=== PATIENT | male | born 1945 | race Caucasian/White ===

== ENCOUNTER 2017-10-15 10:11 | Day surgery (SDC) | payer MEDICARE ==
[2017-10-13 12:26] VITALS: BMI 33.4
[~2017-10-15 10:11] MED LIST: LIDOCAINE 1% 20 ML VIAL (10MG/ML) FOR IV START INTRADERMA PRN
[2017-10-15 10:54] VITALS: TEMP 97.2
[2017-10-15] MEDS: LACTATED RINGERS 1,000 ML IV SCH ×2 (10:55→12:16)
[2017-10-15] MEDS ORDERED: PROPOFOL 10 MG/ML 20 ML VIAL IV ONE (12:17)
--- NOTE | 2017-10-15 12:31 | P.PCN ---
Date of Procedure: 10/15/17 Procedure(s) Performed: BRIEF HISTORY: Patient is a 71-year-old, pleasant, male, scheduled for an upper endoscopy as part of value should of intermittent dysphagia to solids for the last several months duration. Has solid food dysphagia almost on daily basis. Denies any heartburn. He also has long-standing history of GERD and has been on omeprazole 20 mg daily for the last 12 years. He has been maintained on Prilosec 20 mg daily and doing well. In view of the symptoms he scheduled for an upper endoscopy with possible dilation.. PROCEDURE PERFORMED: Esophagogastroduodenoscopy with biopsy. PREOPERATIVE DIAGNOSIS: Progressive dysphagia to solids of 6 months duration. IV sedation per anesthesia. PROCEDURE: After informed consent was obtained, the patient was brought into the endoscopy unit. IV sedation was administered by Anesthesia under continuous monitoring. Initially the Olympus GIF-140 video endoscope was inserted into the mouth. Esophagus intubated without any difficulty. It was gradually advanced into the stomach and duodenum and carefully examined. The bulb and the second part of the duodenum appeared normal. The scope at this time was withdrawn to the stomach, adequately insufflated with air, and upon careful examination, mucosa of the antrum, had scattered erosions and biopsies were done from this area. The body, cardia and the fundus appeared normal. The scope was then withdrawn into the esophagus. Moderate size hiatal hernia noted with the diaphragmatic impression at 45 cm from the incisors. The GE junction was located at 39 cm from the incisors. The entire length of esophagus appeared normal. There were no erosions or ulcerations seen. Biopsies were done from the distal esophagus and the patient tolerated the procedure well. IMPRESSION: 1. Slightly conscious esophagus with no evidence of esophageal stricture. 2. Moderate size hiatal hernia. 3. Antral erosive gastritis RECOMMENDATIONS: The findings of this examination were discussed with the patient as well as his family. He was advised to follow with the biopsy results. He will continue with Prilosec 20 mg twice daily and follow antireflux measures. If he still has persistent dysphagia related to investigate this further with an esophageal manometry to evaluate for esophageal motility disorder..
[2017-10-15 12:41] VITALS: RESP 18
[2017-10-15 12:56] VITALS: BP 123/77; PULSE 77
== END 2017-10-15 13:10 | disposition home or self-care (01) ==
LOC: ORWHC2ENDO 10:11
PROVIDERS: ATTEND Internal Medicine Gastroenterology
DX: K21.0 Gastro-esophageal reflux disease with esophagitis (principal); K29.50 Unspecified chronic gastritis without bleeding; K44.9 Diaphragmatic hernia without obstruction or gangrene; I38 Endocarditis, valve unspecified; E78.5 Hyperlipidemia, unspecified; G47.33 Obstructive sleep apnea (adult) (pediatric); Z99.89 Dependence on other enabling machines and devices; E07.9 Disorder of thyroid, unspecified; L40.9 Psoriasis, unspecified; Z79.1 Long term (current) use of non-steroidal anti-inflammatories (NSAID); Z79.82 Long term (current) use of aspirin; Z79.899 Other long term (current) drug therapy; Z91.018 Allergy to other foods; Z91.011 Allergy to milk products
CPT/HCPCS: 88305; 43239; J2704

== ENCOUNTER 2017-11-16 01:10 | Inpatient (IN) | payer MEDICARE ==
[2017-11-16] MEDS ORDERED: cefTRIAXone IN SWFI 1,000 MG/10 ML SYRINGE IVP STA (01:36)
[2017-11-16] MEDS ORDERED: ACETAMINOPHEN TAB 325 MG TAB PO STA (01:36)
[2017-11-16] MEDS: SODIUM CHLORIDE 0.9% 500 ML IV SCH ×2 (01:52→02:00)
[2017-11-16 01:57] LABS: Basophils # (A) 0.1 k/uL (0-0.2); Basophils % (A) 0 %; Eosinophils # (A) 0.1 k/uL (0-0.7); Eosinophils % (A) 0 %; HCT 42.9 % (39.0-53.0); HGB 14.7 gm/dL (13.0-17.5); Lymphocytes # (A) 1.3 k/uL (1.0-4.8); Lymphocytes % (A) 7 %; MCH 29.8 pg (25.0-35.0); MCHC 34.3 g/dL (31.0-37.0); Mean Platelet Volume 9.9; Monocytes # (A) 0.2 k/uL (0-1.0); Monocytes % (A) 1 %; Neutrophils # (A) 16.9 k/uL (1.3-7.7); Neutrophils % (A) 90 %; Platelet Count 317 k/uL (150-450); RBC 4.93 m/uL (4.30-5.90); RDW 13.6 % (11.5-15.5); WBC 18.7 k/uL (3.8-10.6)
[2017-11-16 02:04] LABS: Albumin 4.5 g/dL (3.5-5.0); Calcium 8.4 mg/dL (8.4-10.2); Total Bilirubin 5.1 mg/dL (0.2-1.3); Total Protein 8.3 g/dL (6.3-8.2)
[2017-11-16 02:35] LABS: Appearance,Urine Clear (Clear); Bilirubin,Urine Negative (Negative); Blood,Urine Trace (Negative); Color,Urine Yellow; Glucose,Urine (UA) Negative (Negative); Hyaline Casts,Urine 29 /lpf (0-2); Ketones,Urine Negative (Negative); Leukocyte Esterase,Urine Negative (Negative); Mucus,Urine Few /hpf; Nitrite,Urine Negative (Negative); PH, Urine 5.5 (5.0-8.0); Protein,Urine 1+ (Negative); RBC,Urine 3 /hpf (0-5); Specific Gravity,Urine 1.011 (1.001-1.035); Squamous Epithelial Cell,Urine 1 /hpf (0-4); WBC,Urine 4 /hpf (0-5)
--- NOTE | 2017-11-16 02:36 | XR ---
EXAMINATION TYPE: XR chest 2V DATE OF EXAM: 11/16/2017 COMPARISON: 01/28/1715 HISTORY: Fever short of breath TECHNIQUE: Frontal and lateral views of the chest are obtained. FINDINGS: There is some blunting of the costophrenic angles. Heart and mediastinum are normal. There is small linear density at the left lung base. There are chest leads. There is no heart failure. IMPRESSION: There are new small bilateral pleural effusions and subsegmental atelectasis at the left lung base compared to old exam. No heart failure.
[2017-11-16 03:25] LABS: INR 1.2 (<1.2); Prothrombin Time 11.4 sec (9.0-12.0)
[2017-11-16 03:35] LABS: Partial Thromboplastin Time 21.6 sec (22.0-30.0)
[2017-11-16] MEDS ORDERED: SODIUM CHLORIDE 0.9% 2,000 ML IV ONE (03:35)
[2017-11-16] MEDS ORDERED: PIPERACILLIN-TAZOBACTAM 3.375 GM in DEXTROSE/WATER 1 50ML.BAG IVPB STA (04:36)
--- NOTE | 2017-11-16 05:22 | CT ---
EXAM: CT Abdomen and Pelvis Without Intravenous Contrast CLINICAL HISTORY: Pain TECHNIQUE: Axial computed tomography images of the abdomen and pelvis without intravenous contrast. CTDI is 16.2 mGy and DLP is 944.9 mGy-cm. This CT exam was performed using one or more of the following dose reduction techniques: automated exposure control, adjustment of the mA and/or kV according to patient size, and/or use of iterative reconstruction technique. COMPARISON: No relevant prior studies available. FINDINGS: Lung bases: There is minimal pleural thickening noted bilaterally. Scarring is noted bilaterally. There is consolidation noted in the right lung base and to lesser extent in the left lung base. Right greater than left pleural effusion is evident ABDOMEN: Liver: Area of abnormal low attenuation posterior sector right lobe the liver measuring 10 cm transverse by 8 cm AP by 8.5 cm craniocaudal small approximately 2 cm noted in the inferior margin of the right lobe the liver.. The findings are suspicious for neoplasm. More complete evaluation including contrast utilization is recommended Gallbladder and bile ducts: Multiple gallstones noted in the neck of the gallbladder these appear to measure around 6-7 mm in size. No evidence for intrahepatic or extrahepatic ductal dilatation. No ductal dilation. Pancreas: Unremarkable. No ductal dilation. Spleen: Unremarkable. No splenomegaly. Adrenals: Unremarkable. No mass. Kidneys and ureters: Perinephric stranding. No evidence for hydronephrosis. Nonobstructing renal calculi measuring 2.2 mm midpole right kidney. Stomach and bowel: Large hiatal hernia. PELVIS: Appendix: The appendix is normal. Bladder: Unremarkable. No stones. Reproductive: Unremarkable as visualized. Prominence of the prostate gland. ABDOMEN and PELVIS: Intraperitoneal space: Unremarkable. No free air. No significant fluid collection. Bones/joints: No acute fracture. No dislocation. Soft tissues: Unremarkable. Vasculature: Unremarkable. No abdominal aortic aneurysm. Lymph nodes: 1.2 cm density in the right inguinal canal which could represent small lymph node. No significant pericaval or periaortic adenopathy. No significant mesenteric adenopathy is identified. IMPRESSION: Abnormal appearance the liver on this noncontrast study. At least 2 mass lesions in the right lobe the liver. Further evaluation of those hepatic lesions is recommended. Cholelithiasis without evidence of intrahepatic or intrahepatic ductal dilatation. No pericholecystic fluid. Consolidation and scarring lung bases with right greater than left pleural effusion, right greater than left consolidation.
[2017-11-16] MEDS ORDERED: SODIUM CHLORIDE 0.9% 1,000 ML IV ONE (05:28)
--- NOTE | 2017-11-16 06:51 | ED ---
SOB HPI - General Chief Complaint: Shortness of Breath Stated Complaint: diff breathing Time Seen by Provider: 11/16/17 01:13 Source: EMS Mode of arrival: EMS Limitations: no limitations - History of Present Illness Initial Comments: This patient is a 71-year-old man presenting with complaint of shaking chills, shortness of breath, and little bit of cough. Patient states that he had been having just a trace of a cough for nearly one day. Tonight's probably about 2 hours ago, he developed shaking chills and was not able to get warm even while wearing a fleece and using a blanket. He also started feeling short of breath, and they called EMS. MD Complaint: shortness of breath, cough Onset/Timin -: hour(s) Consistency: constant Improves With: nothing Worsens With: nothing Associated Symptoms: cough Treatments Prior to Arrival: none - Related Data Home Medications Medication Instructions Recorded Confirmed Aspirin 81 mg PO HS 04/03/14 11/16/17 Doxazosin [Cardura] 4 mg PO HS 04/03/14 11/16/17 Finasteride [Proscar] 5 mg PO QAM 04/03/14 11/16/17 Naproxen Sodium 550 mg PO Q12HR PRN 04/03/14 11/16/17 Simvastatin [Zocor] 40 mg PO HS 04/03/14 11/16/17 Levothyroxine Sodium [Synthroid] 25 mcg PO QAM 01/21/15 11/16/17 Calcium Carbonate/Vitamin D3 1 each PO DAILY 01/25/15 11/16/17 [Calcium 600 + Vit D Tablet] Multivitamin [Men's Multi-Vitamin] 1 tab PO DAILY 01/25/15 11/16/17 Krill Oil 1,000 mg PO DAILY 03/11/15 11/16/17 Potassium Gluconate 595 mg PO DAILY 02/20/16 11/16/17 Cholecalciferol [Vitamin D3] 5,000 unit PO DAILY 11/16/17 11/16/17 Oxybutynin Chloride [Ditropan XL] 10 mg PO DAILY 11/16/17 11/16/17 traMADol HCL [Ultram] 100 mg PO Q6HR PRN 11/16/17 11/16/17 Allergies Allergy/AdvReac Type Severity Reaction Status Date / Time lentils Allergy HEADACHE Verified 11/16/17 07:43 Milk Containing Products Allergy HEADACHE Verified 11/16/17 07:43 [Dairy] soy Allergy HEADACHES Verified 11/16/17 07:43 tree nut [Nut] Allergy HEADACHES Verified 11/16/17 07:43 P[place]REE Allergy SHORTNESS Uncoded 10/15/17 10:49 OF BREATH Review of Systems ROS Statement: Those systems with pertinent positive or pertinent negative responses have been documented in the HPI. ROS Other: All systems not noted in ROS Statement are negative. Constitutional: Reports: chills, weakness (Generalized weakness and fatigue) Respiratory: Reports: cough, dyspnea. Denies: wheezes, hemoptysis Cardiovascular: Reports: palpitations. Denies: chest pain, orthopnea, edema, syncope Gastrointestinal: Denies: abdominal pain, vomiting, diarrhea Genitourinary: Denies: dysuria, frequency, hematuria Musculoskeletal: Reports: myalgia. Denies: back pain Skin: Denies: rash Neurological: Denies: headache, weakness, numbness Past Medical History Past Medical History: GERD/Reflux, Hyperlipidemia, Osteoarthritis (OA), Prostate Disorder, Respiratory Disorder, Skin Disorder, Sleep Apnea/CPAP/BIPAP, Thyroid Disorder Additional Past Medical History / Comment(s): SAW DR. PETERSON 04/16/15-HAS LEAKY VALVE- USES C-PAP SET @ 12 & 5, PSORIASIS LOWER LEGS & UPPER ARMS, NECK AND BACK - USES AMONIUM LACTATE CREAM 12 % PRN, OA KNEES & HIPS History of Any Multi-Drug Resistant Organisms: None Reported Past Surgical History: Hernia Repair Additional Past Surgical History / Comment(s): HERNIA X 3 ( ONE UMBILICAL, ONE LT INGUINAL & ONE HIATAL HERNIA REPAIR), PAIN CLINIC- LAST TIME 04/08/15, COLONSCOPY, EGD, Past Anesthesia/Blood Transfusion Reactions: Motion Sickness Past Psychological History: No Psychological Hx Reported Smoking Status: Never smoker Past Alcohol Use History: Occasional Past Drug Use History: None Reported - Past Family History Father Family Medical History: Myocardial Infarction (DE) Additional Family Medical History / Comment(s): collapsed lung when a younger man, 5 pack a day smoker Mother Family Medical History: Cancer Additional Family Medical History / Comment(s): breast cancer, lymph node to brain, Sister(s) Family Medical History: Neurologic Disorder Additional Family Medical History / Comment(s): M.S. General Exam Limitations: no limitations General appearance: alert, in distress Head exam: Present: atraumatic, normocephalic Eye exam: Present: normal appearance. Absent: scleral icterus, conjunctival injection ENT exam: Present: normal oropharynx Neck exam: Present: normal inspection, full ROM. Absent: meningismus Respiratory exam: Present: respiratory distress (Tachypnea), rales (Bilateral bases). Absent: wheezes, rhonchi, stridor, chest wall tenderness, accessory muscle use, decreased breath sounds, prolonged expiratory Cardiovascular Exam: Present: normal rhythm, tachycardia, normal heart sounds. Absent: systolic murmur, diastolic murmur, rubs, gallop GI/Abdominal exam: Present: soft. Absent: distended, tenderness, guarding, rebound, rigid, mass, pulsatile mass, hernia Extremities exam: Present: normal inspection, normal capillary refill. Absent: pedal edema, calf tenderness Back exam: Present: normal inspection. Absent: CVA tenderness (R), CVA tenderness (L) Neurological exam: Present: alert Skin exam: Present: warm, intact, diaphoretic, mottled. Absent: rash, cyanosis , erythema, petechiae, pallor, abrasion Course Vital Signs 11/16/17 11/16/17 11/16/17 01:24 01:26 01:57 Temperature 102.1 F H Pulse Rate 133 H Pulse Rate [ Pulse Oximetery ] Respiratory 35 H 22 Rate Blood Pressure 143/110 Blood Pressure [Right Arm] O2 Sat by Pulse 87 L 91 L Oximetry 11/16/17 11/16/17 11/16/17 02:49 03:58 04:20 Temperature 99.2 F Pulse Rate 107 H 96 89 Pulse Rate [ Pulse Oximetery ] Respiratory 18 Rate Blood Pressure 96/64 88/52 91/54 Blood Pressure [Right Arm] O2 Sat by Pulse 92 L 92 L 92 L Oximetry 11/16/17 11/16/17 11/16/17 05:19 06:04 06:27 Temperature Pulse Rate 86 83 81 Pulse Rate [ Pulse Oximetery ] Respiratory 18 18 18 Rate Blood Pressure 87/59 93/64 92/67 Blood Pressure [Right Arm] O2 Sat by Pulse 94 L 93 L 93 L Oximetry 11/16/17 11/16/17 11/16/17 06:39 07:41 08:38 Temperature 100.3 F H Pulse Rate 72 70 Pulse Rate [ Pulse Oximetery ] Respiratory 20 18 Rate Blood Pressure 97/65 101/65 Blood Pressure [Right Arm] O2 Sat by Pulse 94 L 95 Oximetry 11/16/17 11/16/17 11/16/17 10:11 12:00 13:18 Temperature 97.8 F 97.7 F 97.7 F Pulse Rate 68 74 Pulse Rate [ 77 Pulse Oximetery ] Respiratory 18 18 18 Rate Blood Pressure 98/63 109/64 Blood Pressure 105/68 [Right Arm] O2 Sat by Pulse 96 96 97 Oximetry 11/16/17 16:00 Temperature 98 F Pulse Rate Pulse Rate [ 76 Pulse Oximetery ] Respiratory 16 Rate Blood Pressure Blood Pressure 99/55 [Right Arm] O2 Sat by Pulse 95 Oximetry Medical Decision Making - Medical Decision Making This patient is 71-year-old man presenting with appearance of sepsis, and given the cough dyspnea suspected pneumonia. The patient's initial chest x-ray does look clear, and given the elevated transaminases, CT of the abdomen pelvis is ordered. This does appear to show area of consolidation at the lung base. Also there does appear to be 8 x 10 cm liver mass concerning for possible neoplasm. Case discussed with hospitals group and patient be admitted. Case discussed with Dr. Wise, who is covering for the intensivists, and we discussed patient's condition including brief episode of hypotension, and patient's vascular access. Patient's blood pressure did respond prior to starting pressors. He will be observed here for an hour and if his blood pressure main stable patient go to the [facility] otherwise will start pressors and patient will go to ICU. - Lab Data Result diagrams: 11/22/17 06:04 11/22/17 06:04 Lab Results 11/16/17 11/16/17 11/16/17 Range/Units 01:20 01:20 01:20 WBC 18.7 H (3.8-10.6) k/uL RBC 4.93 (4.30-5.90) m/uL Hgb 14.7 (13.0-17.5) gm/dL Hct 42.9 (39.0-53.0) % MCV 87.0 (80.0-100.0) fL MCH 29.8 (25.0-35.0) pg MCHC 34.3 (31.0-37.0) g/dL RDW 13.6 (11.5-15.5) % Plt Count 317 (150-450) k/uL Neutrophils % 90 % Lymphocytes % 7 % Monocytes % 1 % Eosinophils % 0 % Basophils % 0 % Neutrophils # 16.9 H (1.3-7.7) k/uL Lymphocytes # 1.3 (1.0-4.8) k/uL Monocytes # 0.2 (0-1.0) k/uL Eosinophils # 0.1 (0-0.7) k/uL Basophils # 0.1 (0-0.2) k/uL PT (9.0-12.0) sec INR (<1.2) APTT (22.0-30.0) sec Sodium 134 L (137-145) mmol/L Potassium (3.5-5.1) mmol/L Chloride 101 (98-107) mmol/L Carbon Dioxide 16 L (22-30) mmol/L Anion Gap 17 mmol/L BUN 21 H (9-20) mg/dL Creatinine 1.00 (0.66-1.25) mg/dL Est GFR (CKD-EPI)AfAm 87 (>60 ml/min/1.73 sqM) Est GFR (CKD-EPI)NonAf 75 (>60 ml/min/1.73 sqM) Glucose 136 H (74-99) mg/dL Lactic Ac Sepsis Rflx Plasma Lactic Acid Sung 4.6 H* (0.7-2.0) mmol/L Calcium 8.4 (8.4-10.2) mg/dL Total Bilirubin 5.1 H (0.2-1.3) mg/dL AST 426 H (17-59) U/L ALT 187 H (21-72) U/L Alkaline Phosphatase 328 H (38-126) U/L Troponin I (0.000-0.034) ng/mL Total Protein 8.3 H (6.3-8.2) g/dL Albumin 4.5 (3.5-5.0) g/dL CA 19-9 Antigen (0.0-34.9) U/mL Urine Color Urine Appearance (Clear) Urine pH (5.0-8.0) Ur Specific [place] (1.001-1.035) Urine Protein (Negative) Urine Glucose (UA) (Negative) Urine Ketones (Negative) Urine Blood (Negative) Urine Nitrite (Negative) Urine Bilirubin (Negative) Urine Urobilinogen (<2.0) mg/dL Ur Leukocyte Esterase (Negative) Urine RBC (0-5) /hpf Urine WBC (0-5) /hpf Ur Squamous Epith Cells (0-4) /hpf Hyaline Casts (0-2) /lpf Urine Mucus (None) /hpf Hepatitis A IgM Ab (Non-Reactive) Hep Bs Antigen (Non-Reactive) Hep B Core IgM Ab (Non-Reactive) Hep C IgG Ab (Non-Reactive) Influenza Type A RNA (Not Detectd) Influenza Type B (PCR) (Not Detectd) 11/16/17 11/16/17 11/16/17 Range/Units 01:20 01:20 01:20 WBC (3.8-10.6) k/uL RBC (4.30-5.90) m/uL Hgb (13.0-17.5) gm/dL Hct (39.0-53.0) % MCV (80.0-100.0) fL MCH (25.0-35.0) pg MCHC (31.0-37.0) g/dL RDW (11.5-15.5) % Plt Count (150-450) k/uL Neutrophils % % Lymphocytes % % Monocytes % % Eosinophils % % Basophils % % Neutrophils # (1.3-7.7) k/uL Lymphocytes # (1.0-4.8) k/uL Monocytes # (0-1.0) k/uL Eosinophils # (0-0.7) k/uL Basophils # (0-0.2) k/uL PT (9.0-12.0) sec INR (<1.2) APTT (22.0-30.0) sec Sodium (137-145) mmol/L Potassium (3.5-5.1) mmol/L Chloride (98-107) mmol/L Carbon Dioxide (22-30) mmol/L Anion Gap mmol/L BUN (9-20) mg/dL Creatinine (0.66-1.25) mg/dL Est GFR (CKD-EPI)AfAm (>60 ml/min/1.73 sqM) Est GFR (CKD-EPI)NonAf (>60 ml/min/1.73 sqM) Glucose (74-99) mg/dL Lactic Ac Sepsis Rflx Plasma Lactic Acid Sung (0.7-2.0) mmol/L Calcium (8.4-10.2) mg/dL Total Bilirubin (0.2-1.3) mg/dL AST (17-59) U/L ALT (21-72) U/L Alkaline Phosphatase (38-126) U/L Troponin I 0.031 (0.000-0.034) ng/mL Total Protein (6.3-8.2) g/dL Albumin (3.5-5.0) g/dL CA 19-9 Antigen 10.3 (0.0-34.9) U/mL Urine Color Urine Appearance (Clear) Urine pH (5.0-8.0) Ur Specific [place] (1.001-1.035) Urine Protein (Negative) Urine Glucose (UA) (Negative) Urine Ketones (Negative) Urine Blood (Negative) Urine Nitrite (Negative) Urine Bilirubin (Negative) Urine Urobilinogen (<2.0) mg/dL Ur Leukocyte Esterase (Negative) Urine RBC (0-5) /hpf Urine WBC (0-5) /hpf Ur Squamous Epith Cells (0-4) /hpf Hyaline Casts (0-2) /lpf Urine Mucus (None) /hpf Hepatitis A IgM Ab Non-Reactive (Non-Reactive) Hep Bs Antigen Non-Reactive (Non-Reactive) Hep B Core IgM Ab Non-Reactive (Non-Reactive) Hep C IgG Ab Non-Reactive (Non-Reactive) Influenza Type A RNA (Not Detectd) Influenza Type B (PCR) (Not Detectd) 11/16/17 11/16/17 11/16/17 Range/Units 01:50 02:01 02:14 WBC (3.8-10.6) k/uL RBC (4.30-5.90) m/uL Hgb (13.0-17.5) gm/dL Hct (39.0-53.0) % MCV (80.0-100.0) fL MCH (25.0-35.0) pg MCHC (31.0-37.0) g/dL RDW (11.5-15.5) % Plt Count (150-450) k/uL Neutrophils % % Lymphocytes % % Monocytes % % Eosinophils % % Basophils % % Neutrophils # (1.3-7.7) k/uL Lymphocytes # (1.0-4.8) k/uL Monocytes # (0-1.0) k/uL Eosinophils # (0-0.7) k/uL Basophils # (0-0.2) k/uL PT (9.0-12.0) sec INR (<1.2) APTT (22.0-30.0) sec Sodium (137-145) mmol/L Potassium (3.5-5.1) mmol/L Chloride (98-107) mmol/L Carbon Dioxide (22-30) mmol/L Anion Gap mmol/L BUN (9-20) mg/dL Creatinine (0.66-1.25) mg/dL Est GFR (CKD-EPI)AfAm (>60 ml/min/1.73 sqM) Est GFR (CKD-EPI)NonAf (>60 ml/min/1.73 sqM) Glucose (74-99) mg/dL Lactic Ac Sepsis Rflx Y Plasma Lactic Acid Sung (0.7-2.0) mmol/L Calcium (8.4-10.2) mg/dL Total Bilirubin (0.2-1.3) mg/dL AST (17-59) U/L ALT (21-72) U/L Alkaline Phosphatase (38-126) U/L Troponin I (0.000-0.034) ng/mL Total Protein (6.3-8.2) g/dL Albumin (3.5-5.0) g/dL CA 19-9 Antigen (0.0-34.9) U/mL Urine Color Yellow Urine Appearance Clear (Clear) Urine pH 5.5 (5.0-8.0) Ur Specific [place] 1.011 (1.001-1.035) Urine Protein 1+ H (Negative) Urine Glucose (UA) Negative (Negative) Urine Ketones Negative (Negative) Urine Blood Trace H (Negative) Urine Nitrite Negative (Negative) Urine Bilirubin Negative (Negative) Urine Urobilinogen 3.0 (<2.0) mg/dL Ur Leukocyte Esterase Negative (Negative) Urine RBC 3 (0-5) /hpf Urine WBC 4 (0-5) /hpf Ur Squamous Epith Cells 1 (0-4) /hpf Hyaline Casts 29 H (0-2) /lpf Urine Mucus Few H (None) /hpf Hepatitis A IgM Ab (Non-Reactive) Hep Bs Antigen (Non-Reactive) Hep B Core IgM Ab (Non-Reactive) Hep C IgG Ab (Non-Reactive) Influenza Type A RNA Not Detected (Not Detectd) Influenza Type B (PCR) Not Detected (Not Detectd) 11/16/17 11/16/17 Range/Units 02:53 06:10 WBC (3.8-10.6) k/uL RBC (4.30-5.90) m/uL Hgb (13.0-17.5) gm/dL Hct (39.0-53.0) % MCV (80.0-100.0) fL MCH (25.0-35.0) pg MCHC (31.0-37.0) g/dL RDW (11.5-15.5) % Plt Count (150-450) k/uL Neutrophils % % Lymphocytes % % Monocytes % % Eosinophils % % Basophils % % Neutrophils # (1.3-7.7) k/uL Lymphocytes # (1.0-4.8) k/uL Monocytes # (0-1.0) k/uL Eosinophils # (0-0.7) k/uL Basophils # (0-0.2) k/uL PT 11.4 (9.0-12.0) sec INR 1.2 H (<1.2) APTT 21.6 L (22.0-30.0) sec Sodium (137-145) mmol/L Potassium (3.5-5.1) mmol/L Chloride (98-107) mmol/L Carbon Dioxide (22-30) mmol/L Anion Gap mmol/L BUN (9-20) mg/dL Creatinine (0.66-1.25) mg/dL Est GFR (CKD-EPI)AfAm (>60 ml/min/1.73 sqM) Est GFR (CKD-EPI)NonAf (>60 ml/min/1.73 sqM) Glucose (74-99) mg/dL Lactic Ac Sepsis Rflx Plasma Lactic Acid Sung 1.7 (0.7-2.0) mmol/L Calcium (8.4-10.2) mg/dL Total Bilirubin (0.2-1.3) mg/dL AST (17-59) U/L ALT (21-72) U/L Alkaline Phosphatase (38-126) U/L Troponin I (0.000-0.034) ng/mL Total Protein (6.3-8.2) g/dL Albumin (3.5-5.0) g/dL CA 19-9 Antigen (0.0-34.9) U/mL Urine Color Urine Appearance (Clear) Urine pH (5.0-8.0) Ur Specific [place] (1.001-1.035) Urine Protein (Negative) Urine Glucose (UA) (Negative) Urine Ketones (Negative) Urine Blood (Negative) Urine Nitrite (Negative) Urine Bilirubin (Negative) Urine Urobilinogen (<2.0) mg/dL Ur Leukocyte Esterase (Negative) Urine RBC (0-5) /hpf Urine WBC (0-5) /hpf Ur Squamous Epith Cells (0-4) /hpf Hyaline Casts (0-2) /lpf Urine Mucus (None) /hpf Hepatitis A IgM Ab (Non-Reactive) Hep Bs Antigen (Non-Reactive) Hep B Core IgM Ab (Non-Reactive) Hep C IgG Ab (Non-Reactive) Influenza Type A RNA (Not Detectd) Influenza Type B (PCR) (Not Detectd) - EKG Data -: EKG Interpreted by Me EKG shows normal: sinus rhythm, axis (Normal), intervals (Normal), QRS complexes (Normal), ST-T waves (Normal) Rate: tachycardia (Rate 125 bpm) Critical Care Time Critical Care Time: Yes (45 minutes) Disposition Clinical Impression: Pneumonia, Sepsis, Liver mass, Elevated transaminase level Disposition: ADMITTED IP TO THIS [facility] Condition: Serious Is patient prescribed a controlled substance at d/c from ED?: No
[2017-11-16] MEDS ORDERED: NOREPINEPHRIN 4 MG-0.9% NS PMX 4 MG/250 ML ML IV SCH (07:30)
[2017-11-16] MEDS: FAMOTIDINE 20 MG/2 ML VIAL IV SCH ×2 (10:09→20:44)
[2017-11-16] MEDS: LEVOFLOXACIN 750MG-D5W PMX 750 MG in DEXTROSE/WATER 1 150ML.BAG IVPB SCH (10:10)
--- NOTE | 2017-11-16 10:15 | CONS ---
CONSULTATION This patient's medical records reviewed. This patient has been having shaking chills for the last couple of days. He was initially seen in the outpatient urgent clinic and patient was told that he might have a viral infection. He is also having some cough. As the patient continued to have shaking chills and he was short of breath, the patient came to the emergency room and he is admitted. The patient denies any chest discomfort. The patient does not have any significant cardiac history in terms of any prior myocardial infarction, diabetes or hypertension. HOME MEDICATIONS: Home medications include Cardura, Proscar, aspirin, Zocor, Antivert and potassium chloride. REVIEW OF THE SYSTEMS: unremarkable. PAST MEDICAL HISTORY: Past medical history includes history of sleep apnea, thyroid disorder history of mild leakage in the valve, history of umbilical hernia repair, colonoscopy. PHYSICAL EXAMINATION: Physical examination at present reveals a 71-year-old gentleman who is more comfortable. The patient's initial temperature in the emergency room was 102, respiratory rate was 35, blood pressure was 143/100 mmHg. Patient's temperature now is 100.3, blood pressure is 97/65 mmHg. Heart rate is 72 per minute. Head/ENT examination is negative. NECK: Supple. There is no increase in jugular venous pressure. Both the carotid pulses are felt. There is no bruit. Chest is symmetrical. HEART: The PMI is not felt. First and second heart sounds are normal. Lungs reveal bilateral diminished air entry. Abdomen is soft. Liver and spleen are not enlarged. EXTREMITIES: Peripheral pulses are 2+. The patient's initial EKG shows normal sinus rhythm with sinus tachycardia. The patient's initial lactic acid level was 4.6. Repeat lactic acid is 1.7. Patient's initial troponin was borderline at 0.013. Influenza swab was negative. The patient's CT scan of the abdomen shows a couple of masses in the liver, rule out neoplasm. There is evidence of bilateral consolidation and pleural effusion. FINAL IMPRESSION: This patient is admitted with fever and shortness of breath, most likely secondary to sepsis. There is no evidence of any overt congestive cardiac failure. RECOMMENDATIONS: We will obtain BNP level and troponin as well as an echocardiogram. MMODL / IJN: [id number] /
--- NOTE | 2017-11-16 11:28 | ECHOF ---
Referral Reason:per physician order MEASUREMENTS -------- HEIGHT: 172.7 cm WEIGHT: 95.3 kg BP: RVIDd: 3.1 cm (< 3.3) IVSd: 1.3 cm (0.6 - 1.1) LVIDd: 4.2 cm (3.9 - 5.3) LVPWd: 1.0 cm (0.6 - 1.1) IVSs: 1.4 cm LVIDs: 3.2 cm LVPWs: 1.1 cm LA Diam: 3.7 cm (2.7 - 3.8) LAESV Index (A-L): 30.14 ml/m Ao Diam: 3.8 cm (2.0 - 3.7) AV Cusp: 2.0 cm (1.5 - 2.6) LA Diam: 3.6 cm (2.7 - 3.8) MV E Jesus: 0.65 m/s MV DecT: 136 ms MV A Jesus: 0.64 m/s MV E/A Ratio: 1.02 RAP: 5.00 mmHg RVSP: 28.58 mmHg FINDINGS -------- Sinus rhythm. This was a technically adequate study. The left ventricular size is normal. There is mild concentric left ventricular hypertrophy. Overa ll left ventricular systolic function is mildly impaired with, an EF between 45 - 50 %. The right ventricle is normal in size. The left atrial size is normal. Normal LA size by volume 22+/-6 ml/m2. The right atrial size is normal. The aortic valve is trileaflet, and appears structurally normal. No aortic stenosis or regurgitation. Mild mitral regurgitation is present. Mild tricuspid regurgitation present. There is no evidence of pulmonary hypertension. The right v entricular systolic pressure, as measured by Doppler, is 28.58mmHg. The aortic root size is normal. There is no pericardial effusion. CONCLUSIONS -------- 1. The left ventricular size is normal. 2. There is mild concentric left ventricular hypertrophy. 3. Overall left ventricular systolic function is mildly impaired with, an EF between 45 - 50 %. 4. The left atrial size is normal. 5. The aortic valve is trileaflet, and appears structurally normal. No aortic stenosis or regurgitati on. 6. Mild mitral regurgitation is present. 7. Mild tricuspid regurgitation present. 8. There is no evidence of pulmonary hypertension. 9. The right ventricular systolic pressure, as measured by Doppler, is 28.58mmHg. 10. The aortic root size is normal. 11. There is no pericardial effusion. MARGIN TRIMMER: Breann Diehl RDCS
[2017-11-16] MEDS: PIPERACILLIN-TAZOBACTAM 3.375 GM in DEXTROSE/WATER 1 50ML.BAG IVPB SCH ×2 (17:08→20:55)
--- NOTE | 2017-11-16 19:45 | HP ---
HISTORY AND PHYSICAL CHIEF COMPLAINTS: Fever, chills, rigors and cough. HISTORY OF PRESENT ILLNESS: This 71-year-old gentleman with a past medical history of multiple medical problems, including history of GERD, hyperlipidemia, history of prostate disorder, history of sleep apnea, history of hernia repair being followed by Dr. Alanis in the outpatient setting was not feeling well over the past couple days. The patient apparently had in the area. Subsequently patient had cough and shaking chills and rigors and because of significant difficulty, the patient came to [facility] and was admitted for further evaluation and treatment. Pneumonia was suspected with some pleural effusion. Of note, the CT scan also showed lesions in the liver. There is no history of any chest pain, palpitations. No history of headache, loss of consciousness, seizures at this time. PAST MEDICAL HISTORY: History of GERD, hyperlipidemia, DJD, prostate disorder, history of sleep apnea, hypothyroidism. MEDICATIONS PRIOR TO ADMISSION: Include: 1. Ultram 100 mg every 6 hours p.r.n. 2. Multivitamins 1 p.o. daily. 3. Vitamin D3 5000 daily. 4. Zocor 40 mg q.h.s. 5. Potassium gluconate 595 mg p.o. daily. 6. Ditropan XL 10 mg p.o. daily. 7. Naprosyn 550 mg p.o. b.i.d. 8. Synthroid 25 mcg p.o. daily. 9. Krill oil 1000 mg p.o. daily. 10.Proscar 5 mg p.o. daily. 11.Cardura 4 mg q.h.s. 12.Vitamin D3 1 tablet p.o. daily. 13.Aspirin 81 mg q.h.s. ALLERGIES: LENTILS, MEAT-CONTAINING PRODUCTS, SOY, TREE NUTS AND PINE TREE. FAMILY HISTORY: History of myocardial infarction in the family. SOCIAL HISTORY: History of alcohol. No history of smoking. REVIEW OF SYSTEMS: ENT: No diminished hearing, diminished vision. CARDIOVASCULAR: No angina, palpitations. RESPIRATORY: As mentioned earlier. GI: As mentioned earlier. : No dysuria. NERVOUS: No numbness or weakness. ALLERGY/IMMUNOLOGY: No asthma or hay fever. MUSCULOSKELETAL: As mentioned earlier. HEMATOLOGY/ONCOLOGY: No history of anemia. ENDOCRINE: No history of diabetes, hypothyroidism. CONSTITUTIONAL: As mentioned earlier. DERMATOLOGY: Negative. RHEUMATOLOGY: Negative. PSYCHIATRY: As mentioned earlier. PHYSICAL EXAM: Patient alert and oriented x3. Pulse 76, blood pressure 99/55, respirations 16, temperature 98 degrees, pulse ox 94% on 4L. HEENT: Conjunctivae normal. Oral mucosa moist. NECK: No jugular venous distention. No carotid bruits. No lymph node enlargement. CARDIOVASCULAR: S1, S2 muffled. RESPIRATORY: Breath sounds diminished in the bases. Bilateral scattered rhonchi and crackles. ABDOMEN: Soft, obese nontender. No mass palpable. No hepatosplenomegaly. LEGS: No edema. No swelling. NERVOUS SYSTEM: Higher functions as mentioned earlier. Moves all 4 limbs. No focal motor or sensory deficits. LYMPHATIC: No lymphadenopathy in neck or axillae. SKIN: No ulcer, rash or bleeding. LABS: WBC 18.6, hemoglobin is 14.7. Sodium 134. Total bilirubin is 5.1, AST is 426 and ALT is 197 and alk phos is 328. ASSESSMENT: 1. Shaking chills and cough with fever with possible pneumonia with sepsis, present on admission. 2. Elevated AST, ALT and bilirubin, possibly acute hepatitis of undetermined etiology. 3. Hyponatremia. 4. Increased WBC. 5. History of DJD. 6. History of hyperlipidemia. 7. History of sleep apnea. 8. History of psoriasis. 9. History of bilateral carpal tunnel syndrome. 10.History of degenerative joint disease. RECOMMENDATIONS AND DISCUSSION: In this 71-year-old gentleman who presented with multiple complex medical issues , will monitor the patient closely. Continue the current medical management and symptomatic treatment, broad spectrum IV antibiotics and obtain cultures. The suspicious lesion in the CT scan is concerning. I would recommend ultrasound of the liver and also obtain a gastroenterology consultation as well as a consultation with Dr. Asencio. Otherwise , repeat labs are ordered. Avoid hepatotoxic medications and guarded prognosis because of multiple complex medical issues. Further recommendations to follow. A copy of this dictation will be forwarded to Dr. Alanis, who is the primary physician. Please see orders for further details. Ultram has been ordered for pain. MMODL / IJN: [id number] / MTDD
[2017-11-16] MEDS: IPRATROPIUM-ALBUTEROL 3 ML NEB INHALATION SCH (20:10)
[2017-11-16] MEDS: DOXAZOSIN 4 MG TAB PO SCH (20:44)
[2017-11-16] MEDS: HEPARIN SODIUM,PORCINE 5,000 UNIT/ML 1 ML VIAL SQ SCH (20:44)
[2017-11-16] MEDS: SODIUM CHLORIDE 0.9% 1,000 ML IV SCH (20:45)
[2017-11-16] MEDS ORDERED: ASPIRIN 81 MG PO SCH (21:00)
[2017-11-17] MEDS: SODIUM CHLORIDE 0.9% 1,000 ML IV SCH ×3 (03:32→19:51)
[2017-11-17 05:19] LABS: Hepatitis A Antibody IgM Non-Reactive (Non-Reactive); Hepatitis B Core IgM Non-Reactive (Non-Reactive)
[2017-11-17] MEDS: PIPERACILLIN-TAZOBACTAM 3.375 GM in DEXTROSE/WATER 1 50ML.BAG IVPB SCH ×3 (05:19→21:05)
[2017-11-17] MEDS: IPRATROPIUM-ALBUTEROL 3 ML NEB INHALATION PRN (05:23)
[2017-11-17 06:31] LABS: Basophils # (A) 0.1 k/uL (0-0.2); Basophils % (A) 1 %; Eosinophils # (A) 0.1 k/uL (0-0.7); Eosinophils % (A) 0 %; HCT 42.8 % (39.0-53.0); Lymphocytes # (A) 2.5 k/uL (1.0-4.8); Lymphocytes % (A) 10 %; MCH 29.4 pg (25.0-35.0); MCHC 32.7 g/dL (31.0-37.0); Mean Platelet Volume 8.3; Monocytes % (A) 4 %; Neutrophils # (A) 20.1 k/uL (1.3-7.7); Neutrophils % (A) 83 %; Platelet Count 310 k/uL (150-450); RBC 4.75 m/uL (4.30-5.90); RDW 13.7 % (11.5-15.5); WBC 24.3 k/uL (3.8-10.6)
[2017-11-17 06:41] LABS: ALT 228 U/L (21-72); AST 207 U/L (17-59); Albumin 2.5 g/dL (3.5-5.0); Alkaline Phosphatase 317 U/L (38-126); Anion Gap 13 mmol/L; Blood Urea Nitrogen 17 mg/dL (9-20); Calcium 8.1 mg/dL (8.4-10.2); Carbon Dioxide 23 mmol/L (22-30); Chloride 107 mmol/L (98-107); Glucose 108 mg/dL (74-99); Potassium 3.9 mmol/L (3.5-5.1); Sodium 143 mmol/L (137-145); Total Bilirubin 2.3 mg/dL (0.2-1.3); Total Protein 5.2 g/dL (6.3-8.2)
[2017-11-17] MEDS: PANTOPRAZOLE 40 MG TABLET PO SCH (08:03)
[2017-11-17] MEDS: CALCIUM CARB-VIT D 500MG-200UN 1 EACH TAB PO SCH (08:04)
[2017-11-17] MEDS: CHOLECALCIFEROL 1,000 UNIT TAB PO SCH (08:04)
[2017-11-17] MEDS: FINASTERIDE 5 MG TAB PO SCH (08:05)
[2017-11-17] MEDS: LEVOTHYROXINE 25 MCG TAB PO SCH (08:06)
[2017-11-17] MEDS: HEPARIN SODIUM,PORCINE 5,000 UNIT/ML 1 ML VIAL SQ SCH ×2 (08:06→20:39)
[2017-11-17] MEDS: OXYBUTYNIN 10 MG TAB.ER.24 PO SCH (08:06)
[2017-11-17] MEDS: FAMOTIDINE 20 MG/2 ML VIAL IV SCH (08:06)
[2017-11-17] MEDS: LEVOFLOXACIN 750MG-D5W PMX 750 MG in DEXTROSE/WATER 1 150ML.BAG IVPB SCH (08:12)
[2017-11-17] MEDS: MULTIVITAMINS, THERA 1 EACH TAB PO SCH (08:13)
--- NOTE | 2017-11-17 08:42 | US ---
EXAMINATION TYPE: US liver DATE OF EXAM: 11/17/2017 COMPARISON: CT of 11/16/2017 and 03/21/2015 CLINICAL HISTORY: mass??. Abnormal CT EXAM MEASUREMENTS: Liver Length: 21.1 cm Gallbladder Wall: 0.4 cm CBD: 0.4 cm Right Kidney: 12.0 x 5.8 x 5.0 cm Pancreas: Obscured by bowel gas Liver: Complex mass right posterior lobe= 13.0 x 9.1 x 10.7 cm and a second, smaller lesion adjacent to larger mass= 2.5 cm, which is hypoechoic/ these appear non-vascular Gallbladder: Sludge and small gallstones at neck, wall thickened Evidence for sonographic Saavedra's sign: No CBD: wnl Right Kidney: No evidence of hydro, small amount of fluid represent perinephric fat stranding on CT IMPRESSION: 1. Complex right hepatic mass measures up to 13.0 cm and adjacent smaller hypoechoic hepatic mass sophei sures 2.5 cm. These were not present on the prior exam of 2014 and are suspicious for malignancy. No sonographic findings of underlying hepatocellular disease to suggest hepatocellular carcinoma althoug h this remains a consideration as does metastasis. Further evaluation is necessary. Preferred evaluat ion with dynamic and enhanced MR or alternatively dynamic enhanced CT. 2. Cholelithiasis and biliary sludge with minimal gallbladder wall thickening, possibly reactive. Cor relate with serum laboratory values to determine the need for HIDA.
[2017-11-17] MEDS ORDERED: POTASSIUM GLUCONATE 595 MG PO SCH (09:00)
[2017-11-17] MEDS: IPRATROPIUM-ALBUTEROL 3 ML NEB INHALATION SCH ×3 (09:09→20:29)
--- NOTE | 2017-11-17 10:01 | P.CONS ---
History of Present Illness - Reason for Consult Consult date: 11/17/17 hepatitis Requesting physician: Laura Purcell - History of Present Illness 72-year-old gentleman patient of Dr. Alanis admitted with chills rigors shortness of breath and cough receiving intravenous antibiotics for pneumonia. Additionally he has not felt well for the last month or so with decreased appetite darker colored urine over the last few weeks. No significant weight loss. Consult requested for hepatitis. Patient has no history of hepatitis or known liver disorders. No history of EtOH abuse or intravenous drug usage. CT abdomen and pelvis reported liver mass in the posterior right lobe 10 cm 8 cm 8.5 cm as well as a 2 cm lesion in the inferior margin of the right lobe. These findings are suspicious for neoplasm. Multiple gallstones in the neck measuring 6-7 mm without intra-or extrahepatic ductal dilatation. No pericholecystic fluid. Liver ultrasound read demonstrated right hepatic masses measuring up to 13 cm and 2.5 cm respectively. These findings were not seen on prior exam in 2015 and are suspicious for malignancy. No evidence of underlying hepatocellular disease to suggest hepatocellular carcinoma although primary versus metastatic disease cannot be entirely excluded. Additionally cholelithiasis and biliary sludge redemonstrated without CBD dilation. CBD 0.4 cm. White count 18.7 presently 24.3. Platelets 310. INR 1.2. Total bilirubin 2.3- 5.1. AST 207-426. ALT 187-228. Alkaline phosphatase 317-328. Hepatitis screen nonreactive. Influenza screen not detected. Upon review of previous medical records LFTs within normal limits in 2016 and earlier. He received a dose of baby aspirin yesterday. Endoscopic history: 1. EGD 10/15/2017 for evaluation of progressive dysphagia, history of Schatzki' s ring, to solids for 6 months duration no evidence of stricture disease, erosive gastritis and moderate size hiatal hernia. No evidence of neoplasm. 2. Colonoscopy April 2015 evaluation of chronic intermittent diarrhea; 1 cm rectal polyp status post polypectomy with scattered diffuse diverticulosis; biopsies hyperplastic polyp. Review of Systems Constitutional: Admitted with rigors chills reports no significant weight loss. HEENT: Negative for migraines, blurred vision or loss, earaches, drainage, tinnitus, oral mucosal lesions, dysphagia, or odynophagia. Cardiac: Negative for chest pain, arrhythmias, or palpitation. Respiratory: Admitted with shortness of breath cough. Gastrointestinal: See HPI for pertinent findings. Genitourinary: Negative for hematuria, urgency, frequency, polyuria, dysuria, or penile discharge. Musculoskeletal: Negative for muscle aches, swelling, arthritis, and arthralgias. Neurologic: Negative for stroke or TIA. Endocrine: Negative for thyroid problems. Skin: Negative for rash or itching. Psychiatric: Negative history for depression and anxiety Past Medical History Past Medical History: GERD/Reflux, Hyperlipidemia, Osteoarthritis (OA), Prostate Disorder, Respiratory Disorder, Skin Disorder, Sleep Apnea/CPAP/BIPAP, Thyroid Disorder Additional Past Medical History / Comment(s): Current upper tooth fissure/ infection, AMANDA with Cpap 06/17, intermittent dysphagia/hiatal hernia, leaky heart valves, vertigo intermittently, psoriasis, bilateral carpal tunnel syndrome, low back pain, spinal stenosis, BPH, hypothyroid. History of Any Multi-Drug Resistant Organisms: None Reported Past Surgical History: Hernia Repair Additional Past Surgical History / Comment(s): HERNIA X 4 ( ONE UMBILICAL, LT/ RT INGUINAL & ONE HIATAL HERNIA REPAIR), PAIN CLINIC CERVICAL INJECTIONS, COLONSCOPIES, EGDS, R WRIST FRACTURE WAS SET, THYROID BIOPSIES. Past Anesthesia/Blood Transfusion Reactions: No Reported Reaction Smoking Status: Never smoker - Past Family History Father Family Medical History: Myocardial Infarction (DC) Additional Family Medical History / Comment(s): Father of a DC at the age of 51 yrs.. He had a collapsed lung when a younger man. He was a 5 pack a day smoker Mother Family Medical History: Cancer Additional Family Medical History / Comment(s): Mother at the age of 56yrs from metastatic breast cancer. Sister(s) Family Medical History: Neurologic Disorder Additional Family Medical History / Comment(s): M.S. Medications and Allergies Home Medications Medication Instructions Recorded Confirmed Type Aspirin 81 mg PO HS 04/03/14 11/16/17 History Doxazosin [Cardura] 4 mg PO HS 04/03/14 11/16/17 History Finasteride [Proscar] 5 mg PO QAM 04/03/14 11/16/17 History Naproxen Sodium 550 mg PO Q12HR PRN 04/03/14 11/16/17 History Simvastatin [Zocor] 40 mg PO HS 04/03/14 11/16/17 History Levothyroxine Sodium [Synthroid] 25 mcg PO QAM 01/21/15 11/16/17 History Calcium Carbonate/Vitamin D3 1 each PO DAILY 01/25/15 11/16/17 History [Calcium 600 + Vit D Tablet] Multivitamin [Men's Multi-Vitamin] 1 tab PO DAILY 01/25/15 11/16/17 History Krill Oil 1,000 mg PO DAILY 03/11/15 11/16/17 History Potassium Gluconate 595 mg PO DAILY 02/20/16 11/16/17 History Cholecalciferol [Vitamin D3] 5,000 unit PO DAILY 11/16/17 11/16/17 History Oxybutynin Chloride [Ditropan XL] 10 mg PO DAILY 11/16/17 11/16/17 History traMADol HCL [Ultram] 100 mg PO Q6HR PRN 11/16/17 11/16/17 History Allergies Allergy/AdvReac Type Severity Reaction Status Date / Time lentils Allergy HEADACHE Verified 11/16/17 07:43 Milk Containing Products Allergy HEADACHE Verified 11/16/17 07:43 [Dairy] soy Allergy HEADACHES Verified 11/16/17 07:43 tree nut [Nut] Allergy HEADACHES Verified 11/16/17 07:43 PINE TREE Allergy SHORTNESS Uncoded 10/15/17 10:49 OF BREATH Physical Exam Vitals: Vital Signs Temp Pulse Pulse Resp BP BP Pulse Ox 11/17/17 08:00 97 F L 72 16 120/71 95 11/17/17 05:39 78 11/17/17 05:26 78 11/17/17 04:00 97.9 F 78 18 113/64 94 L 11/17/17 00:00 80 20 11/16/17 23:45 98.1 F 80 20 116/70 94 L 11/16/17 20:40 98.2 F 84 24 107/66 94 L 11/16/17 20:10 92 L 11/16/17 17:23 98 F 78 16 109/71 11/16/17 16:00 98 F 76 16 99/55 95 11/16/17 13:18 97.7 F 74 18 109/64 97 11/16/17 12:00 97.7 F 77 18 105/68 96 11/16/17 10:11 97.8 F 68 18 98/63 96 Intake and Output 11/16/17 11/17/1718 22:59 06:59 14:59 Intake Total 1905 Output Total 450 Balance 1455 Intake: Intake, IV Titration 1605 Amount Piperacillin-Tazobactam 3 50 .375 gm In Dextrose/Water 1 50ml.bag @ 12.5 mls/hr IVPB Q8H [facility] Rx#: [id number] Sodium Chloride 0.9% 1, 1555 000 ml @ 125 mls/hr IV . Q8H [facility] Rx#:[id number] Oral 300 Output: Urine 450 Other: Voiding Method Toilet Toilet Toilet Urinal Urinal Urinal Weight 100.9 kg 101.7 kg General appearance: The patient is alert, oriented, in no acute distress. Slight short of breath with conversation and at rest HET: Head is normocephalic and atraumatic. Pupils are equal and reactive. Sclerae dull. Overall appearance is not jaundice. Oropharynx is clear without lesions. Neck: Supple without lymphadenopathy. Trachea midline. Heart: S1 S2. Regular rate and rhythm. Lungs: Diminished in bases bilaterally with a few scattered rhonchi in the upper airways. Abdomen: Soft, nontender, nondistended with bowel sounds. No peritoneal signs. No palpable organomegaly or masses. Extremities: Normal skin color and turgor. No cyanosis, rash, ulceration, clubbing, or edema. Radial and pedal pulses are 2/4 bilaterally. Neurological: No focal deficits. Strength and sensation are grossly intact. Results CBC & Chem 7: 11/19/17 06:54 11/19/17 06:54 Labs: Abnormal Lab Results - Last 24 Hours (Table) 11/17/17 11/17/17 Range/Units 05:44 05:44 WBC 24.3 H (3.8-10.6) k/uL Neutrophils # 20.1 H (1.3-7.7) k/uL Glucose 108 H (74-99) mg/dL Calcium 8.1 L (8.4-10.2) mg/dL Total Bilirubin 2.3 H (0.2-1.3) mg/dL AST 207 H (17-59) U/L ALT 228 H (21-72) U/L Alkaline Phosphatase 317 H (38-126) U/L Total Protein 5.2 L (6.3-8.2) g/dL Albumin 2.5 L (3.5-5.0) g/dL Microbiology - Last 24 Hours (Table) 11/16/17 01:50 Blood Culture - Preliminary Blood No Growth after 24 hours 11/16/17 02:01 Urine Culture - Preliminary Urine,Voided CT scan - abdomen: report reviewed (Dr. Newman) US - abdomen: report reviewed (Dr. Newman) Assessment and Plan (1) Liver mass Narrative/Plan: Suspicious for underlying neoplasm possible metastatic disease versus primary possible infectious. Hepatitis screen nonreactive. Current Visit: Yes Status: Acute Code(s): R16.0 - HEPATOMEGALY, NOT ELSEWHERE CLASSIFIED SNOMED Code(s): 013211465 (2) Elevated liver enzymes Narrative/Plan: Secondary to intrahepatic process possible neoplasm possible infectious Current Visit: Yes Status: Acute Code(s): R74.8 - ABNORMAL LEVELS OF OTHER SERUM ENZYMES SNOMED Code(s): 516321206 (3) Pneumonia Narrative/Plan: Sepsis fever leukocytosis Current Visit: Yes Status: Acute Code(s): J18.9 - PNEUMONIA, UNSPECIFIED ORGANISM SNOMED Code(s): 798910653 Plan: 1. Recommend oncology consultation and liver biopsy however patient received a dose of baby aspirin yesterday therefore he needs to be off aspirin therapy at least 7 days before liver biopsy can be performed. Will assist in scheduling liver biopsy within the next 7-10 days based on his clinical course. 2. AFP. CEA. Daily monitoring of liver chemistries. No indication to proceed with ERCP at this time however consideration for MRI if agreeable with oncology if it will assist with diagnosis. ABX. ID consult. 3. Will follow closely with you. Thank you for this kind referral and the opportunity to participate in the care of your patient. This consultation was discussed with Dr. Newman. The impression and plan of care have been directed as dictated.
[2017-11-17] MEDS ORDERED: RX INFO: IV CONTRAST WAS GIVEN 1 EACH MISC MISCELLANE PRN (10:21)
[2017-11-17 11:54] LABS: Bilirubin, Delta 1.1 mg/dL (0.0-0.2); Bilirubin,Unconjugated 1.1 mg/dL (0.0-1.1); Total Bilirubin 2.2 mg/dL (0.2-1.3)
--- NOTE | 2017-11-17 11:59 | CT ---
EXAMINATION TYPE: CT angio chest DATE OF EXAM: 11/17/2017 COMPARISON: CT chest March 21, 2015 HISTORY: Trouble breathing CT DLP: 768.3 mGycm. Automated Exposure Control for Dose Reduction was Utilized. CONTRAST: CTA scan of the thorax is performed with IV Contrast, patient injected with 100 mL of Isovue 370, pul monary embolism protocol. MIP Images are created on CT scanner and reviewed. FINDINGS: There is respiratory motion artifact making evaluation suboptimal particularly for subcenti meter nodularity. LUNGS: There is persistent elevated right hemidiaphragm. There are new small bilateral pleural effusi ons with associated compressive atelectasis in both bases. No sizable pneumothorax is seen bilaterall y. There is mild tracheobronchial prominence and mild central peribronchial wall thickening redemonst rated. MEDIASTINUM: There is slightly suboptimal bolus but there is no CT evidence for acute pulmonary embol ism. There are no greater than 1 cm hilar or mediastinal lymph nodes. No cardiomegaly is seen. The re is new small anterior pericardial effusion measuring up to 1.4 cm in thickness axial image 89. Cor onary artery calcification is present which is noted marker for coronary artery disease OTHER: There is new large heterogeneous hypodense lesion posterior segment right hepatic lobe measuri ng roughly 10.8 cm long axis axial image 123. Finding noted on CT abdomen pelvis study one day earlie r. There is persistent moderate size hiatal hernia or intrathoracic stomach with abnormal twisting fe lt stable in size and appearance. IMPRESSION: New small bilateral pleural effusions since CT study yesterday. Findings raise concern fo r fluid overload state. Follow-up contrast enhanced liver protocol CT or MRI advised advised for larg e liver lesion as noted on CT one day earlier. No CT evidence for acute pulmonary embolism.
--- NOTE | 2017-11-17 14:22 | P.CNPUL ---
History of Present Illness Consult date: 11/17/17 Reason for consult: dyspnea History of present illness: A 72-year-old male patient came into the hospital because of some cough and congestion and increased shortness of breath. The patient apparently developed some cold chills approximately 2 days ago. Subsequently he started feeling sick and later on he became more short of breath as the patient had cough and congestion of the chest and he was concern for pneumonia. For that reason he came into the hospital for further evaluation. He is a lifetime nonsmoker. No pleurisy. No hemoptysis. No recurrent pneumonias. No history of alcoholism. No history of any chronic lung disease or disorder. The patient was found to have a white cell count of 18.7 at time of admission and the LFTs were quite abnormal with elevation and ALP and AST and mild elevation of the alkaline phosphatase. Based on that a CAT scan of the abdomen was done and showed abnormal appearance of the liver with a large 10 cm x 8 cm mass in the posterior dissector of the right lower lobe of the liver and this finding was suspicious for malignancy. The gallbladder and ducts are within normal limits. The patient had multiple gallstones that appears to be around 67 mm in size. There was no evidence of any anti-or extrahepatic ductal dilatation. Pancreas was within normal limits. Lung bases showed some pleural thickening otherwise within normal limits. Elevation of the right hemidiaphragm was noted and this was present on previous CAT scans. Note that the patient's EGD from October 2017 showed schatzki's ring and there was erosive gastritis and moderate size hiatal hernia and hiatal hernia was also seen in the CAT scan of the abdomen. The patient also had a colonoscopy in 2014 and it showed no acute abnormalities. No reported history of abdominal pain. No nausea. No vomiting. No diarrhea. No fever. No chills. He is known to have obstructive sleep apnea using and he was using his CPAP on outpatient basis. No other history of malignancy. Review of Systems Constitutional: Reports chills, Reports fatigue, Reports weakness Eyes: denies blurred vision, denies bulging eye, denies decreased vision Ears: deny: decreased hearing, ear discharge, earache, tinnitus Ears, nose, mouth and throat: Denies headache, Denies sore throat Cardiovascular: Reports dyspnea on exertion Respiratory: Reports dyspnea, Reports sleep apnea Gastrointestinal: Reports as per HPI Genitourinary: Reports as per HPI Musculoskeletal: Denies myalgias Musculoskeletal: absent: ankle pain, ankle stiffness, ankle swelling Integumentary: Denies pruritus, Denies rash Neurological: Denies numbness, Denies weakness Psychiatric: Denies anxiety, Denies depression Endocrine: Denies fatigue, Denies weight change Hematologic/Lymphatic: Reports as per HPI Allergic/Immunologic: Reports as per HPI Past Medical History Past Medical History: GERD/Reflux, Hyperlipidemia, Osteoarthritis (OA), Prostate Disorder, Respiratory Disorder, Skin Disorder, Sleep Apnea/CPAP/BIPAP, Thyroid Disorder Additional Past Medical History / Comment(s): Liver mass under investigation, obstructive sleep apnea maintained on CPAP, moderate size hiatal hernia, psoriasis, carpal tunnel syndrome, chronic back pain, spinal stenosis, BPH, hypothyroidism, hyperlipidemia, acid reflux History of Any Multi-Drug Resistant Organisms: None Reported Past Surgical History: Hernia Repair Additional Past Surgical History / Comment(s): HERNIA X 4 ( ONE UMBILICAL, LT/ RT INGUINAL & ONE HIATAL HERNIA REPAIR), PAIN CLINIC CERVICAL INJECTIONS, COLONSCOPIES, EGDS, R WRIST FRACTURE WAS SET, THYROID BIOPSIES. Past Anesthesia/Blood Transfusion Reactions: No Reported Reaction Smoking Status: Never smoker - Past Family History Father Family Medical History: Myocardial Infarction ([place]) Additional Family Medical History / Comment(s): Father of a [place] at the age of 51 yrs.. He had a collapsed lung when a younger man. He was a 5 pack a day smoker Mother Family Medical History: Cancer Additional Family Medical History / Comment(s): Mother at the age of 56yrs from metastatic breast cancer. Sister(s) Family Medical History: Neurologic Disorder Additional Family Medical History / Comment(s): M.S. Medications and Allergies Home Medications Medication Instructions Recorded Confirmed Type Aspirin 81 mg PO HS 04/03/14 11/16/17 History Doxazosin [Cardura] 4 mg PO HS 04/03/14 11/16/17 History Finasteride [Proscar] 5 mg PO QAM 04/03/14 11/16/17 History Naproxen Sodium 550 mg PO Q12HR PRN 04/03/14 11/16/17 History Simvastatin [Zocor] 40 mg PO HS 04/03/14 11/16/17 History Levothyroxine Sodium [Synthroid] 25 mcg PO QAM 01/21/15 11/16/17 History Calcium Carbonate/Vitamin D3 1 each PO DAILY 01/25/15 11/16/17 History [Calcium 600 + Vit D Tablet] Multivitamin [Men's Multi-Vitamin] 1 tab PO DAILY 01/25/15 11/16/17 History Krill Oil 1,000 mg PO DAILY 03/11/15 11/16/17 History Potassium Gluconate 595 mg PO DAILY 02/20/16 11/16/17 History Cholecalciferol [Vitamin D3] 5,000 unit PO DAILY 11/16/17 11/16/17 History Oxybutynin Chloride [Ditropan XL] 10 mg PO DAILY 11/16/17 11/16/17 History traMADol HCL [Ultram] 100 mg PO Q6HR PRN 11/16/17 11/16/17 History Allergies Allergy/AdvReac Type Severity Reaction Status Date / Time lentils Allergy HEADACHE Verified 11/16/17 07:43 Milk Containing Products Allergy HEADACHE Verified 11/16/17 07:43 [Dairy] soy Allergy HEADACHES Verified 11/16/17 07:43 tree nut [Nut] Allergy HEADACHES Verified 11/16/17 07:43 PINE TREE Allergy SHORTNESS Uncoded 10/15/17 10:49 OF BREATH Physical Exam Vitals: Vital Signs Temp Pulse Pulse Resp BP Pulse Ox 11/17/17 13:24 88 11/17/17 13:05 88 11/17/17 11:16 16 11/17/17 11:14 85 16 128/77 94 L 11/17/17 08:00 97 F L 72 16 120/71 95 11/17/17 05:39 78 11/17/17 05:26 78 11/17/17 04:00 97.9 F 78 18 113/64 94 L 11/17/17 00:00 80 20 11/16/17 23:45 98.1 F 80 20 116/70 94 L 11/16/17 20:40 98.2 F 84 24 107/66 94 L 11/16/17 20:10 92 L 11/16/17 17:23 98 F 78 16 109/71 11/16/17 16:00 98 F 76 16 99/55 95 Intake and Output 11/16/17 11/17/17 11/17/17 22:59 06:59 14:59 Intake Total 1905 240 Output Total 450 Balance 1455 240 Intake: Intake, IV Titration 1605 Amount Piperacillin-Tazobactam 3 50 .375 gm In Dextrose/Water 1 50ml.bag @ 12.5 mls/hr IVPB Q[facility]H [facility] Rx#: [id number] Sodium Chloride 0.9% 1, 1555 000 ml @ 125 mls/hr IV . Q[facility] Rx#:[id number] Oral 300 240 Output: Urine 450 Other: Voiding Method Toilet Toilet Toilet Urinal Urinal Urinal Weight 100.9 kg 101.7 kg 101.7 kg Gen. appearance the patient is calm comfortable likely distress Head exam was generally normal. There was no scleral icterus or corneal arcus. Mucous membranes were moist. Neck was supple and without jugular venous distension, thyromegaly, or carotid bruits. Carotids were easily palpable bilaterally. There was no adenopathy. Lungs sounds are diminished bilaterally especially in the right lung base. No wheezes or rhonchi. Minimal crackles in the lung bases bilaterally. Cardiac exam revealed the PMI to be normally situated and sized. The rhythm was regular and no extrasystoles were noted during several minutes of auscultation. The first and second heart sounds were normal and physiologic splitting of the second heart sound was noted. There were no murmurs, rubs, clicks, or gallops. Abdominal exam revealed normal bowel sounds. The abdomen was soft, non-tender, and without masses, organomegaly, or appreciable enlargement of the abdominal aorta. Examination of the extremities revealed easily palpable radial, femoral and pedal pulses. There was no cyanosis, clubbing or edema. Examination of the skin revealed no evidence of significant rashes, suspicious appearing nevi or other concerning lesions. Neurologic the patient is awake and alert and there is no focal neurological deficit. Results - Laboratory Findings CBC and BMP: 11/17/17 05:44 11/17/17 05:44 PT/INR, D-dimer PT 11.4 sec (9.0-12.0) 11/16/17 02:53 INR 1.2 (<1.2) H 11/16/17 02:53 Abnormal lab findings: Abnormal Labs 11/16/17 11/16/17 11/16/17 01:20 01:20 01:20 WBC 18.7 H Neutrophils # 16.9 H INR APTT Sodium 134 L Carbon Dioxide 16 L BUN 21 H Glucose 136 H Plasma Lactic Acid Sung 4.6 H* Calcium Total Bilirubin 5.1 H Delta Bilirubin AST 426 H ALT 187 H Alkaline Phosphatase 328 H Total Protein 8.3 H Albumin Urine Protein Urine Blood Hyaline Casts Urine Mucus 11/16/17 11/16/17 11/17/17 02:01 02:53 05:44 WBC 24.3 H Neutrophils # 20.1 H INR 1.2 H APTT 21.6 L Sodium Carbon Dioxide BUN Glucose Plasma Lactic Acid Sung Calcium Total Bilirubin Delta Bilirubin AST ALT Alkaline Phosphatase Total Protein Albumin Urine Protein 1+ H Urine Blood Trace H Hyaline Casts 29 H Urine Mucus Few H 11/17/17 11/17/17 05:44 05:44 WBC Neutrophils # INR APTT Sodium Carbon Dioxide BUN Glucose 108 H Plasma Lactic Acid Sung Calcium 8.1 L Total Bilirubin 2.3 H 2.2 H Delta Bilirubin 1.1 H AST 207 H ALT 228 H Alkaline Phosphatase 317 H Total Protein 5.2 L Albumin 2.5 L Urine Protein Urine Blood Hyaline Casts Urine Mucus - Diagnostic Findings Chest x-ray: image reviewed Assessment and Plan Plan: Assessment 1 liver mass on that investigation. Patient has abnormalities in liver function tests. Rule out primary hepatocellular carcinoma. Rule out cholangiocarcinoma. Rule out metastases to the liver. 2 chronic right hemidiaphragmatic elevation 3 small bilateral pleural effusions 4 acute bronchitis 5 abnormalities in LFTs secondary to above 6 psoriasis 7 moderate-sized hiatal hernia 8 BPH 9 hypothyroidism 10 hyperlipidemia 11 chronic back pain with spinal stenosis Plan Proceed with a CAT scan of the chest. Obtain tumor markers including CEA, CA-19 -9, alpha-fetoprotein. Consultation with oncology. Consider fine-needle aspirate of a later stage for diagnostic purposes. Continue to follow.
--- NOTE | 2017-11-17 14:43 | P.PN ---
Subjective Progress Note Date: 11/17/17 Principal diagnosis: Is a 72-year-old gentleman who is admitted to the hospital with symptoms of shaking, chills, and productive cough. Patient denied any chest discomfort, he was seen in consultation yesterday by Dr. VC Sarah because of the shortness of breath. There is no evidence of any overt congestive heart failure, shortness of breath likely secondary to sepsis. BNP level in the 500 range, ejection fraction 45-50%. Blood pressure 128/58, heart rate in the 90s, 94% on 6 L of oxygen. Objective - Vital Signs Vital signs: Vital Signs Temp 100 F H 11/17/17 14:33 Pulse 104 H 11/17/17 14:33 Resp 24 11/17/17 14:33 BP 128/58 11/17/17 14:33 Pulse Ox 90 L 11/17/17 14:33 Intake & Output 11/16/17 11/17/17 11/17/17 18:59 06:59 18:59 Intake Total 1905 240 Output Total 450 Balance 1455 240 Weight 100.9 kg 101.7 kg 101.7 kg Intake: Intake, IV Titration 1605 Amount Piperacillin-Tazobactam 3 50 .375 gm In Dextrose/Water 1 50ml.bag @ 12.5 mls/hr IVPB Q8H [facility] Rx#: [id number] Sodium Chloride 0.9% 1, 1555 000 ml @ 125 mls/hr IV . Q8H [facility] Rx#:[id number] Oral 300 240 Output: Urine 450 Other: Voiding Method Toilet Toilet Urinal Urinal # Voids 1 - Exam PHYSICAL EXAMINATION: HEENT: Head is atraumatic, normocephalic. Pupils equal, round. Neck is supple. There is no elevated jugular venous pressure. HEART EXAMINATION: Heart S1, S2 normal. No murmur or gallop heard. CHEST EXAMINATION: Lungs reveal crackles to posterior bases. ABDOMEN: Soft, nontender. Bowel sounds are heard. No organomegaly noted. EXTREMITIES: 2+ peripheral pulses with no evidence of peripheral edema and no calf tenderness noted. NEUROLOGIC patient is awake, alert and oriented -3. . - Labs CBC & Chem 7: 11/17/17 05:44 11/17/17 05:44 Labs: Abnormal Lab Results - Last 24 Hours (Table) 0511/17/17 11/17/17 Range/Units 05:44 05:44 05:44 WBC 24.3 H (3.8-10.6) k/uL Neutrophils # 20.1 H (1.3-7.7) k/uL Glucose 108 H (74-99) mg/dL Calcium 8.1 L (8.4-10.2) mg/dL Total Bilirubin 2.3 H 2.2 H (0.2-1.3) mg/dL Delta Bilirubin 1.1 H (0.0-0.2) mg/dL AST 207 H (17-59) U/L ALT 228 H (21-72) U/L Alkaline Phosphatase 317 H (38-126) U/L Total Protein 5.2 L (6.3-8.2) g/dL Albumin 2.5 L (3.5-5.0) g/dL Microbiology - Last 24 Hours (Table) 11/16/17 02:01 Urine Culture - Final Urine,Voided 11/16/17 01:50 Blood Culture - Preliminary Blood No Growth after 24 hours Assessment and Plan Plan: Assessment and plan #1 shortness of breath, likely secondary to small pleural effusion and sepsis, no clear-cut evidence of congestive cardiac failure. #2 liver mass, rule out primary hepatocellular carcinoma. #3 acute bronchitis #4 hypothyroidism Number 5 hyperlipidemia Plan Echocardiogram with Doppler study was performed which revealed an ejection fraction of 45-50%. From cardiology's perspective we will follow this patient along with you now on an as-needed basis only, please don't hesitate to call with any questions. DNP note has been reviewed, I agree with a documented findings and plan of care. Patient was seen and examined.
[2017-11-17] MEDS: FUROSEMIDE 10 MG/ML 2 ML VIAL IV SCH (15:06)
--- NOTE | 2017-11-17 16:20 | P.CONS ---
History of Present Illness - Reason for Consult Consult date: 11/17/17 ?Malignancy Requesting physician: Laura Purcell - Chief Complaint Abdominal Pain and Shortness of Breath - History of Present Illness A 72-year-old male patient who presented to the emergency department with cough , congestion and increased shortness of breath. He has experienced increased fatigue over the past few days, and weight loss approx 10-15lbs over the past month. He noticed his urine becoming darker and this also concerned him. The patient apparently developed some cold chills approximately 2 days ago. Subsequently he started feeling sick and later on he became more short of breath as the patient had cough and congestion of the chest and he was concern for pneumonia. He is a a rare alcohol user, social at best. He is a lifetime nonsmoker. On admission his LFTs were were elevated AST and mild elevation of the alkaline phosphatase. Based on that a CAT scan of the abdomen was done and showed abnormal appearance of the liver with a large 13 x 8 cm mass in the posterior dissector of the right lower lobe of the liver and this finding was suspicious for malignancy. The gallbladder and ducts are within normal limits. The patient had multiple gallstones that appears to be around 67 mm in size. There was no evidence of any anti-or extrahepatic ductal dilatation. Pancreas was within normal limits. Lung bases showed some pleural thickening and bilateral effusions otherwise within normal limits. Elevation of the right hemidiaphragm was noted and this was present on previous CAT scans. Note that the patient's EGD from October 2017 showed schatzki's ring and there was erosive gastritis and moderate size hiatal hernia and hiatal hernia was also seen in the CAT scan of the abdomen. His mother from metastatic Breast cancer and he has a large history of breast cancer on his mothers side. He has known enlarged prostate. The patient also had a colonoscopy in 2014 and it showed no acute abnormalities. His is at bedside and we discussed the findings this far and plan for probable tissue biopsy Review of Systems A 14 point review of systems assessed and completed and all negative except HPI Past Medical History Past Medical History: GERD/Reflux, Hyperlipidemia, Osteoarthritis (OA), Prostate Disorder, Respiratory Disorder, Skin Disorder, Sleep Apnea/CPAP/BIPAP, Thyroid Disorder Additional Past Medical History / Comment(s): Current upper tooth fissure/ infection, AMANDA with Cpap 06/17, intermittent dysphagia/hiatal hernia, leaky heart valves, vertigo intermittently, psoriasis, bilateral carpal tunnel syndrome, low back pain, spinal stenosis, BPH, hypothyroid. History of Any Multi-Drug Resistant Organisms: None Reported Past Surgical History: Hernia Repair Additional Past Surgical History / Comment(s): HERNIA X 4 ( ONE UMBILICAL, LT/ RT INGUINAL & ONE HIATAL HERNIA REPAIR), PAIN CLINIC CERVICAL INJECTIONS, COLONSCOPIES, EGDS, R WRIST FRACTURE WAS SET, THYROID BIOPSIES. Past Anesthesia/Blood Transfusion Reactions: No Reported Reaction Smoking Status: Never smoker - Past Family History Father Family Medical History: Myocardial Infarction ([place]) Additional Family Medical History / Comment(s): Father of a [place] at the age of 51 yrs.. He had a collapsed lung when a younger man. He was a 5 pack a day smoker Mother Family Medical History: Cancer Additional Family Medical History / Comment(s): Mother at the age of 56yrs from metastatic breast cancer. Sister(s) Family Medical History: Neurologic Disorder Additional Family Medical History / Comment(s): M.S. Medications and Allergies Home Medications Medication Instructions Recorded Confirmed Type Aspirin 81 mg PO HS 04/03/14 11/16/17 History Doxazosin [Cardura] 4 mg PO HS 04/03/14 11/16/17 History Finasteride [Proscar] 5 mg PO QAM 04/03/14 11/16/17 History Naproxen Sodium 550 mg PO Q12HR PRN 04/03/14 11/16/17 History Simvastatin [Zocor] 40 mg PO HS 04/03/14 11/16/17 History Levothyroxine Sodium [Synthroid] 25 mcg PO QAM 01/21/15 11/16/17 History Calcium Carbonate/Vitamin D3 1 each PO DAILY 01/25/15 11/16/17 History [Calcium 600 + Vit D Tablet] Multivitamin [Men's Multi-Vitamin] 1 tab PO DAILY 01/25/15 11/16/17 History Krill Oil 1,000 mg PO DAILY 03/11/15 11/16/17 History Potassium Gluconate 595 mg PO DAILY 02/20/16 11/16/17 History Cholecalciferol [Vitamin D3] 5,000 unit PO DAILY 11/16/17 11/16/17 History Oxybutynin Chloride [Ditropan XL] 10 mg PO DAILY 11/16/17 11/16/17 History traMADol HCL [Ultram] 100 mg PO Q6HR PRN 11/16/17 11/16/17 History Allergies Allergy/AdvReac Type Severity Reaction Status Date / Time lentils Allergy HEADACHE Verified 11/16/17 07:43 Milk Containing Products Allergy HEADACHE Verified 11/16/17 07:43 [Dairy] soy Allergy HEADACHES Verified 11/16/17 07:43 tree nut [Nut] Allergy HEADACHES Verified 11/16/17 07:43 PINE TREE Allergy SHORTNESS Uncoded 10/15/17 10:49 OF BREATH Physical Exam Vitals: Vital Signs Temp Pulse Pulse Resp BP BP Pulse Ox 11/17/17 08:00 97 F L 72 16 120/71 95 11/17/17 05:39 78 11/17/17 05:26 78 11/17/17 04:00 97.9 F 78 18 113/64 94 L 11/17/17 00:00 80 20 11/16/17 23:45 98.1 F 80 20 116/70 94 L 11/16/17 20:40 98.2 F 84 24 107/66 94 L 11/16/17 20:10 92 L 11/16/17 17:23 98 F 78 16 109/71 11/16/17 16:00 98 F 76 16 99/55 95 11/16/17 13:18 97.7 F 74 18 109/64 97 11/16/17 12:00 97.7 F 77 18 105/68 96 Intake and Output 11/16/17 11/17/17 11/17/17 22:59 06:59 14:59 Intake Total 1905 Output Total 450 Balance 1455 Intake: Intake, IV Titration 1605 Amount Piperacillin-Tazobactam 3 50 .375 gm In Dextrose/Water 1 50ml.bag @ 12.5 mls/hr IVPB Q8H [facility] Rx#: [id number] Sodium Chloride 0.9% 1, 1555 000 ml @ 125 mls/hr IV . Q8H [facility] Rx#:[id number] Oral 300 Output: Urine 450 Other: Voiding Method Toilet Toilet Toilet Urinal Urinal Urinal Weight 100.9 kg 101.7 kg - Constitutional General appearance: average body habitus, cooperative, no acute distress - EENT Eyes: PERRLA ENT: NA/AT, normal oropharynx - Neck Neck: normal ROM - Respiratory Respiratory: bilateral: CTA - Cardiovascular Rhythm: regular Heart sounds: normal: S1, S2 - Gastrointestinal General gastrointestinal: distended, hepatomegaly, soft, tenderness - Integumentary Integumentary: pale - Neurologic Neurologic: CNII-XII intact - Musculoskeletal Musculoskeletal: generalized weakness, strength equal bilaterally - Psychiatric Psychiatric: A&O x's 3, appropriate affect, intact judgment & insight Results CBC & Chem 7: 11/17/17 05:44 11/17/17 05:44 Labs: Abnormal Lab Results - Last 24 Hours (Table) 11/17/17 11/17/17 Range/Units 05:44 05:44 WBC 24.3 H (3.8-10.6) k/uL Neutrophils # 20.1 H (1.3-7.7) k/uL Glucose 108 H (74-99) mg/dL Calcium 8.1 L (8.4-10.2) mg/dL Total Bilirubin 2.3 H (0.2-1.3) mg/dL AST 207 H (17-59) U/L ALT 228 H (21-72) U/L Alkaline Phosphatase 317 H (38-126) U/L Total Protein 5.2 L (6.3-8.2) g/dL Albumin 2.5 L (3.5-5.0) g/dL Microbiology - Last 24 Hours (Table) 11/16/17 01:50 Blood Culture - Preliminary Blood No Growth after 24 hours 11/16/17 02:01 Urine Culture - Preliminary Urine,Voided Assessment and Plan Plan: Assessment and Recommendations: 1. New Liver Mass - - Recommend Biopsy for Tissue Diagnosis - CT Chest complete Staging - Large family history of Breast cancer on maternal side 2. Dyspnea on Exersion - Pulmonary Following - Bilateral Pleural Effusions likely from IV Fluids 3. Liver Transminitis - GI Following - ERCP/MRCP per GI Physician Attestation: I have completed the full history and physical of this patient and agree with abovenote by EDU Parsons, Dictated as a scribe. Time with Patient: Greater than 30
[2017-11-17] MEDS ORDERED: VANCOMYCIN IV PER PHARMACY 1 EACH MISC MISCELLANE PRN (16:43)
--- NOTE | 2017-11-17 17:37 | PN ---
PROGRESS NOTE DATE OF SERVICE: 11/17/2017 This 72-year-old gentleman who was admitted with shaking chills and possible pneumonia and sepsis also had a significant hepatic lesion. The patient is on broad-spectrum IV antibiotics. The white count is also elevated at 24.3 and AST ALT are also elevated. Total bilirubin is 2.2. Multiple consultants are following the patient closely, including Dr. Wise. The possibility of malignancy has also been raised because of the hepatic liver mass. Tumor markers are ordered. Cardiology is also evaluating the patient. Past medical history reviewed. REVIEW OF SYSTEMS: CARDIOVASCULAR SYSTEM: No angina, palpitations. RESPIRATORY SYSTEM: As mentioned earlier. GI: As mentioned earlier. : No dysuria or retention. NERVOUS SYSTEM: No numbness, weakness. CURRENT MEDICATIONS: Current medications are reviewed and include: 1. DuoNeb q.i.d. and p.r.n. 2. Os-Naveen with vitamin D. 3. Cardura 4 mg at bedtime. 4. Pepcid 20 mg p.o. b.i.d. 5. Proscar 5 mg each morning. 6. Heparin 5000 units subcutaneously b.i.d. 7. Levaquin 750 daily. 8. Synthroid. 9. Levophed. 10.Ditropan. 11.Zosyn 3.375 IV q.8. 12.Ultram 100 mg q.6. PHYSICAL EXAMINATION: Patient is alert and oriented x3. Pulse 104, blood pressure 128/58, respiration 24, temperature 100 degrees, pulse ox 90% on 6 L nasal cannula. HEENT: Conjunctivae normal. Oral mucosa moist. NECK: No jugular venous distention. No carotid bruit. No lymph node enlargement. CARDIOVASCULAR SYSTEM: S1, S2 muffled. RESPIRATORY SYSTEM: Breath sounds diminished at the bases. A few scattered rhonchi and crackles. ABDOMEN: Soft, obese, nontender. No mass palpable. LEGS: No edema. No swelling. NERVOUS SYSTEM: Higher functions as mentioned earlier. Moves all 4 limbs. No focal motor or sensory deficit. LYMPHATICS: No lymph node palpable in neck, axillae or groin. SKIN: No ulcer, rash, bleeding. LABS: Troponin indeterminate at 0.028. BNP is 596. WBC 24.3. AST is 207. ALT is 228. A 2-D echo showed ejection fraction 40% to 50%. ASSESSMENT: 1. Shaking chills and cough with possible pneumonia, sepsis, present on admission. 2. Hepatic lesion; rule out malignancy, hepatocellular carcinoma, cholangiocarcinoma or metastasis. 3. Elevated AST, ALT, bilirubin; possible acute hepatitis of undetermined etiology. 4. Hyponatremia. 5. Increased white count. 6. History of degenerative joint disease. 7. History of hyperlipidemia. 8. History of sleep apnea. 9. History of psoriasis. 10.History of bilateral carpal tunnel syndrome. 11.History of degenerative joint disease. RECOMMENDATIONS AND DISCUSSION: In this 72-year-old gentleman who presented with multiple complex medical issues, we will monitor the patient closely, continue with current medications, continue with symptomatic treatment. Otherwise at this time I would recommend continuing with the antibiotics. Follow the cultures. Guarded prognosis because of multiple complex medical issues. Further recommendations to follow. Discussed with the family at length. Will closely follow with multiple consultants. MMSISSY / NEVILLEN: [id number] /
[2017-11-17] MEDS ORDERED: VANCOMYCIN 2,000 MG in SODIUM CHLORIDE 0.9% 500 ML IVPB ONE (18:00)
[2017-11-17] MEDS: VANCOMYCIN 1,750 MG in SODIUM CHLORIDE 0.9% 250 ML IVPB SCH (18:22)
[2017-11-17] MEDS: DOXAZOSIN 4 MG TAB PO SCH (20:39)
[2017-11-17] MEDS: FAMOTIDINE 20 MG TAB PO SCH (20:39)
[2017-11-17 20:56] LABS: Alpha Fetoprotein, Tumor Mkr <1.3 ng/mL (0.0-7.9)
[2017-11-18] MEDS: metroNIDAZOLE 500 MG TAB PO SCH ×4 (01:02→22:46)
[2017-11-18] MEDS: VANCOMYCIN 1,750 MG in SODIUM CHLORIDE 0.9% 250 ML IVPB SCH ×2 (05:25→17:19)
[2017-11-18] MEDS: PIPERACILLIN-TAZOBACTAM 3.375 GM in DEXTROSE/WATER 1 50ML.BAG IVPB SCH ×3 (05:25→22:46)
[2017-11-18] MEDS: LEVOTHYROXINE 25 MCG TAB PO SCH (05:30)
[2017-11-18] MEDS: IPRATROPIUM-ALBUTEROL 3 ML NEB INHALATION SCH ×3 (07:01→20:03)
[2017-11-18 07:14] LABS: Basophils # (A) 0.1 k/uL (0-0.2); Basophils % (A) 0 %; Eosinophils # (A) 0.1 k/uL (0-0.7); Eosinophils % (A) 1 %; HCT 41.1 % (39.0-53.0); HGB 13.6 gm/dL (13.0-17.5); Lymphocytes # (A) 1.8 k/uL (1.0-4.8); Lymphocytes % (A) 9 %; MCH 29.4 pg (25.0-35.0); MCV 88.9 fL (80.0-100.0); Mean Platelet Volume 8.7; Monocytes # (A) 0.9 k/uL (0-1.0); Monocytes % (A) 4 %; Neutrophils # (A) 17.6 k/uL (1.3-7.7); Neutrophils % (A) 84 %; Platelet Count 349 k/uL (150-450); RBC 4.63 m/uL (4.30-5.90); RDW 14.1 % (11.5-15.5)
[2017-11-18 07:30] LABS: ALT 175 U/L (21-72); AST 134 U/L (17-59); Albumin 2.4 g/dL (3.5-5.0); Alkaline Phosphatase 307 U/L (38-126); Anion Gap 11 mmol/L; Blood Urea Nitrogen 16 mg/dL (9-20); Calcium 8.2 mg/dL (8.4-10.2); Carbon Dioxide 22 mmol/L (22-30); Chloride 108 mmol/L (98-107); Glucose 101 mg/dL (74-99); Potassium 4.1 mmol/L (3.5-5.1); Sodium 141 mmol/L (137-145); Total Bilirubin 2.1 mg/dL (0.2-1.3)
--- NOTE | 2017-11-18 08:14 | CONS ---
CONSULTATION DATE OF SERVICE: 11/17/2017 REASON FOR CONSULTATION: Fever. HISTORY OF PRESENT ILLNESS: The patient is a 72-year-old, male presenting to the ER at [facility] yesterday early in the morning with chief complaints of shaking, chills and shortness of breath. These symptom have been going on and off, especially with weakness for a few days. However, having more shaking chills 90% due to the hospital. The patient denies having significant URI symptoms. Patient denies having any chest pain. Very minimal cough, but not bringing up any sputum. No significant abdominal pain and no nausea, vomiting. No diarrhea. On arrival to the ER, the patient did have a fever of 102.1 degrees Fahrenheit. The patient did have a white count of 18.7. The patient's liver enzyme was slightly elevated. Patient did have a CT of abdomen and pelvis which did show a complex mass in the right lobe of the liver with Cholelithiasis without evidence of intrahepatic or dilatation. No evidence of any fluid some consultation of the lung. The patient was started on Rocephin that has been switched over to Zosyn this morning with Vancomycin was added and the patient did have a low- grade fever today. The patient also have a CT angiogram that was negative for PE but shows use mother perfusion since the CT yesterday with concern for fluid overload status. Infectious Disease was consulted for further recommendation regarding antibiotic therapy. REVIEW OF SYSTEMS: CONSTITUTIONAL: Positive for weakness along with chills. EYES: No complaint. ENT: No complaint. RESPIRATORY. As per HPI. CARDIOVASCULAR: No complaint. GENITOURINARY No complaint. GASTROINTESTINAL: As per HPI. MUSCULOSKELETAL: No complaint. ENT: No complaint. PSYCHOLOGICAL: No complaint. NEUROLOGIC: No complaint. PAST MEDICAL HISTORY: Significant for hyperlipidemia, ulcerative colitis, osteoarthritis, hypertrophy, sleep apnea, hypothyroidism. PAST SURGICAL HISTORY: Hernia repair x3, colonoscopy, EGD. SOCIAL HISTORY: No active smoking, or EtOH, no drug use. FAMILY HISTORY: Father history of CT. Mother history of past cancer. Sister with multiple sclerosis. ALLERGIES: MILK CONTAINING PRODUCTS, LENTIL. MEDICATION: the patient is currently on DuoNeb, Oscal D, vitamin D3, Cardura, Pepcid, Proscar, Lasix, heparin, Levaquin, Synthroid, Ditropan, Protonix, and vancomycin. PHYSICAL EXAMINATION: Blood pressure 123/55 with a pulse of 83, temperature 98.7, T-max is 100, admission fever was 102.1. He is 94% on 6 L nasal cannula. General description is an elderly male, lying in bed in no distress. No tachypnea or accessory muscle for respiration use. HEENT: Shows no pallor or scleral icterus. Oral mucosa is moist. No pharyngeal thickening or thrush. NECK: Trachea central, no thyromegaly/ LUNGS: Unlabored breathing with decreased breath sounds at the bases. No wheeze or crackle. HEART: S1, S2. Regular rate and rhythm. ABDOMEN: Soft, no tenderness. No guarding, no rigidity. No organomegaly. EXTREMITIES: No edema of feet. SKIN EXAMINATION: No rash or mass palpable. NEUROLOGICAL: Patient is awake, alert, oriented x3. Mood and affect normal. No signs of any irritation. LABS: Hemoglobin is 14, white count 24.3 with a BUN of 17, creatinine 0.7, white count has been normal. Liver enzymes are elevated. Hepatitis serologies negative. Influenza serology was negative. Blood culture obtained which is currently pending. DIAGNOSTIC IMPRESSION AND PLAN: Patient admitted to the hospital with sepsis and patient did have fever of 102.1 degrees Fahrenheit. The patient did have an elevated white count and tachycardia meeting criteria for SIRS/sepsis. Source is likely liver abscess. Clinically, those are malignant conditions as fever, rigors and chills more point towards the infectious process and the likely organism to cover will be the enteric gram-negative both aerobes and anaerobes and less likely gram-positive pathogen. PLAN: 1. CT will be reviewed with the radiologist to see if can see do a CT-guided drainage, which will be sent for culture, both aerobic and anaerobic. 2. Patient to continue with Zosyn or add oral while waiting for the culture to finalize. 3. We will follow up on his clinical condition and culture to further adjust medication if needed. Thank you for this consultation. Will follow this patient along with you. MMODL / IJN: [id number] /
[2017-11-18] MEDS: CHOLECALCIFEROL 1,000 UNIT TAB PO SCH (08:55)
[2017-11-18] MEDS: FAMOTIDINE 20 MG TAB PO SCH (08:56)
[2017-11-18] MEDS: OXYBUTYNIN 10 MG TAB.ER.24 PO SCH (08:56)
[2017-11-18] MEDS: FINASTERIDE 5 MG TAB PO SCH (08:56)
[2017-11-18] MEDS: CALCIUM CARB-VIT D 500MG-200UN 1 EACH TAB PO SCH (08:57)
[2017-11-18] MEDS: PANTOPRAZOLE 40 MG TABLET PO SCH (08:57)
[2017-11-18] MEDS: HEPARIN SODIUM,PORCINE 5,000 UNIT/ML 1 ML VIAL SQ SCH ×2 (08:58→20:48)
[2017-11-18] MEDS ORDERED: LEVOFLOXACIN 750 MG TAB PO SCH (09:00)
[2017-11-18] MEDS: FUROSEMIDE 10 MG/ML 2 ML VIAL IV SCH (10:59)
[2017-11-18] MEDS: IPRATROPIUM-ALBUTEROL 3 ML NEB INHALATION PRN (11:10)
--- NOTE | 2017-11-18 11:32 | P.PN ---
Subjective Progress Note Date: 11/18/17 Principal diagnosis: Admitted with pneumonia sepsis graphic imaging reporting liver masses with elevated liver enzymes. MRI liver/MRCP scheduled this afternoon. Feels better. Breathing improving. T-max 100.0. White count 21. LFTs relatively unchanged from yesterday's mildly improved. T bili 2.1. AFP and CEA within normal limits. CA-19-9 pending. Objective - Vital Signs Vital signs: Vital Signs Temp 98.3 F 11/18/17 07:00 Pulse 80 11/18/17 11:24 Resp 26 H 11/18/17 07:00 BP 119/67 11/18/17 07:00 Pulse Ox 92 L 11/18/17 07:01 Intake & Output 11/17/17 11/18/17 11/18/17 18:59 06:59 18:59 Intake Total 490 250 Output Total 100 Balance 390 250 Weight 101.7 kg Intake: Intake, IV Titration 250 50 Amount Levofloxacin 750Mg-D5w 150 Pmx 750 mg In Dextrose/ Water 1 150ml.bag @ 100 mls/hr IVPB Q24H [facility] Rx#: [id number] Piperacillin-Tazobactam 3 100 50 .375 gm In Dextrose/Water 1 50ml.bag @ 12.5 mls/hr IVPB Q8H [facility]EL Rx#: [id number] Oral 240 200 Output: Urine 100 Other: Voiding Method Toilet Toilet Urinal Urinal # Voids 1 1 - Exam General appearance: The patient is alert, oriented, in no acute distress. HET: Head is normocephalic and atraumatic. Pupils are equal and reactive. Sclerae dull. Oropharynx is clear without lesions. Neck: Supple without lymphadenopathy. Trachea midline. Heart: S1 S2. Regular rate and rhythm. Lungs: No crackles or wheezes are heard. Diminished in bases bilaterally Abdomen: Soft, nontender, nondistended with bowel sounds. No peritoneal signs. No palpable organomegaly or masses. Extremities: Normal skin color and turgor. No cyanosis, rash, ulceration, clubbing, or edema. Radial and pedal pulses are 2/4 bilaterally. Neurological: No focal deficits. Strength and sensation are grossly intact. - Labs CBC & Chem 7: 11/18/17 06:33 11/18/17 06:33 Labs: Abnormal Lab Results - Last 24 Hours (Table) 11/17/17 11/18/17 11/18/17 Range/Units 05:44 06:33 06:33 WBC 21.0 H (3.8-10.6) k/uL Neutrophils # 17.6 H (1.3-7.7) k/uL Chloride 108 H (98-107) mmol/L Glucose 101 H (74-99) mg/dL Calcium 8.2 L (8.4-10.2) mg/dL Total Bilirubin 2.2 H 2.1 H (0.2-1.3) mg/dL Delta Bilirubin 1.1 H (0.0-0.2) mg/dL AST 134 H (17-59) U/L ALT 175 H (21-72) U/L Alkaline Phosphatase 307 H (38-126) U/L Total Protein 5.0 L (6.3-8.2) g/dL Albumin 2.4 L (3.5-5.0) g/dL Microbiology - Last 24 Hours (Table) 11/16/17 01:50 Blood Culture Gram Stain - Preliminary Blood 11/16/17 01:50 Blood Culture - Final Blood 11/16/17 02:01 Urine Culture - Final Urine,Voided Assessment and Plan (1) Liver mass Narrative/Plan: Suspicious for underlying neoplasm possible metastatic disease versus primary. Hepatitis screen nonreactive. Current Visit: Yes Status: Acute Code(s): R16.0 - HEPATOMEGALY, NOT ELSEWHERE CLASSIFIED SNOMED Code(s): 758003355 (2) Elevated liver enzymes Current Visit: Yes Status: Acute Code(s): R74.8 - ABNORMAL LEVELS OF OTHER SERUM ENZYMES SNOMED Code(s): 371455528 (3) Pneumonia Current Visit: Yes Status: Acute Code(s): J18.9 - PNEUMONIA, UNSPECIFIED ORGANISM SNOMED Code(s): 760141545 Plan: 1. MRI case discussed with oncology this morning. Possible liver biopsy next week. Continue to hold aspirin. We'll continue to follow. Assessment and plan a care discussed with Dr. Newman
--- NOTE | 2017-11-18 12:55 | P.PN ---
Subjective Progress Note Date: 11/18/17 Principal diagnosis: Liver mass A 72-year-old male patient came into the hospital because of some cough and congestion and increased shortness of breath. The patient apparently developed some cold chills approximately 2 days ago. Subsequently he started feeling sick and later on he became more short of breath as the patient had cough and congestion of the chest and he was concern for pneumonia. For that reason he came into the hospital for further evaluation. He is a lifetime nonsmoker. No pleurisy. No hemoptysis. No recurrent pneumonias. No history of alcoholism. No history of any chronic lung disease or disorder. The patient was found to have a white cell count of 18.7 at time of admission and the LFTs were quite abnormal with elevation and ALP and AST and mild elevation of the alkaline phosphatase. Based on that a CAT scan of the abdomen was done and showed abnormal appearance of the liver with a large 10 cm x 8 cm mass in the posterior dissector of the right lower lobe of the liver and this finding was suspicious for malignancy. The gallbladder and ducts are within normal limits. The patient had multiple gallstones that appears to be around 67 mm in size. There was no evidence of any anti-or extrahepatic ductal dilatation. Pancreas was within normal limits. Lung bases showed some pleural thickening otherwise within normal limits. Elevation of the right hemidiaphragm was noted and this was present on previous CAT scans. Note that the patient's EGD from October 2017 showed schatzki's ring and there was erosive gastritis and moderate size hiatal hernia and hiatal hernia was also seen in the CAT scan of the abdomen. The patient also had a colonoscopy in 2014 and it showed no acute abnormalities. No reported history of abdominal pain. No nausea. No vomiting. No diarrhea. No fever. No chills. He is known to have obstructive sleep apnea using and he was using his CPAP on outpatient basis. No other history of malignancy. The patient is seen again today 11/18/2017 in follow-up on the regular medical floor. He remains awake and alert in no acute distress. He states his breathing is easier today as compared to yesterday. Computed tomography scan of the chest ruled out pulmonary embolism. There is some new small bilateral pleural effusions suggestive of fluid overload state. His current receiving IV Lasix 20 mg daily. Still requiring 7 L high flow nasal cannula to maintain O2 saturations in the low 90s. White count 21. Hemoglobin 13.6. Creatinine 0.80. AST 134, ALT 175. Total bilirubin 2.1, calcium 8.2. AFP less than 1.3. CEA 1.2. GI services and oncology on the case as well. Objective - Vital Signs Vital signs: Vital Signs Temp 98.3 F 11/18/17 07:00 Pulse 80 11/18/17 11:24 Resp 26 H 11/18/17 07:00 BP 119/67 11/18/17 07:00 Pulse Ox 92 L 11/18/17 07:01 Intake & Output 11/17/17 11/18/17 11/18/17 18:59 06:59 18:59 Intake Total 490 250 Output Total 100 Balance 390 250 Weight 101.7 kg Intake: Intake, IV Titration 250 50 Amount Levofloxacin 750Mg-D5w 150 Pmx 750 mg In Dextrose/ Water 1 150ml.bag @ 100 mls/hr IVPB Q24H [facility] Rx#: [id number] Piperacillin-Tazobactam 3 100 50 .375 gm In Dextrose/Water 1 50ml.bag @ 12.5 mls/hr IVPB Q8H [facility] IS[facility]EL Rx#: [id number] Oral 240 200 Output: Urine 100 Other: Voiding Method Toilet Toilet Urinal Urinal # Voids 1 1 - Exam Gen. appearance the patient is calm comfortable likely distress Head exam was generally normal. There was no scleral icterus or corneal arcus. Mucous membranes were moist. Neck was supple and without jugular venous distension, thyromegaly, or carotid bruits. Carotids were easily palpable bilaterally. There was no adenopathy. Lungs sounds are diminished bilaterally especially in the right lung base. No wheezes or rhonchi. Minimal crackles in the lung bases bilaterally. Cardiac exam revealed the PMI to be normally situated and sized. The rhythm was regular and no extrasystoles were noted during several minutes of auscultation. The first and second heart sounds were normal and physiologic splitting of the second heart sound was noted. There were no murmurs, rubs, clicks, or gallops. Abdominal exam revealed normal bowel sounds. The abdomen was soft, non-tender, and without masses, organomegaly, or appreciable enlargement of the abdominal aorta. Examination of the extremities revealed easily palpable radial, femoral and pedal pulses. There was no cyanosis, clubbing or edema. Examination of the skin revealed no evidence of significant rashes, suspicious appearing nevi or other concerning lesions. Neurologic the patient is awake and alert and there is no focal neurological deficit. - Labs CBC & Chem 7: 11/18/17 06:33 11/18/17 06:33 Labs: Abnormal Lab Results - Last 24 Hours (Table) 11/18/17 11/18/17 Range/Units 06:33 06:33 WBC 21.0 H (3.8-10.6) k/uL Neutrophils # 17.6 H (1.3-7.7) k/uL Chloride 108 H (98-107) mmol/L Glucose 101 H (74-99) mg/dL Calcium 8.2 L (8.4-10.2) mg/dL Total Bilirubin 2.1 H (0.2-1.3) mg/dL AST 134 H (17-59) U/L ALT 175 H (21-72) U/L Alkaline Phosphatase 307 H (38-126) U/L Total Protein 5.0 L (6.3-8.2) g/dL Albumin 2.4 L (3.5-5.0) g/dL Microbiology - Last 24 Hours (Table) 11/16/17 01:50 Blood Culture Gram Stain - Preliminary Blood 11/16/17 01:50 Blood Culture - Final Blood 11/16/17 02:01 Urine Culture - Final Urine,Voided Assessment and Plan Assessment: Assessment [address] investigation. Patient has abnormalities in liver function tests. Rule out primary hepatocellular carcinoma. Rule out cholangiocarcinoma. Rule out metastases to the liver. Plan is for biopsy in the outpatient setting. Aspirin is on hold. AFP less than 1.3. CEA 1.2. CA 19-9 is pending. 2 chronic right hemidiaphragmatic elevation 3 small bilateral pleural effusions 4 acute bronchitis 5 abnormalities in LFTs secondary to above 6 psoriasis 7 moderate-sized hiatal hernia 8 BPH 9 hypothyroidism 10 hyperlipidemia 11 chronic back pain with spinal stenosis Plan: The patient was seen and evaluated by Dr. Wise. Computed tomography scan of the chest was reviewed. There are small bilateral pleural effusions. He remains on diuretics. He is still quite dyspneic on minimal exertion. We'll continue with his current medications. He has been seen and evaluated by ID who feels the leukocytosis, fever and rigors may be related to an infectious process secondary to the liver mass and suspected malignancy. He is currently on vancomycin, Zosyn and Flagyl. We will continue to follow and make further recommendations based on his clinical status. I, the cosigning physician, performed a history & physical examination of the patient. Lungs sounds with crackles in the bilateral posterior bases. Few scattered rhonchi.. Maintaining good O2 saturations in the 90s on 7 L high flow nasal cannula. I discussed the assessment and plan of care with my nurse practitioner, Bridgett Demarco. I attest to the above note as dictated by her.
--- NOTE | 2017-11-18 14:50 | PN ---
PROGRESS NOTE DATE OF SERVICE: 11/18/2017. REASON FOR FOLLOWUP: Fever, possible liver abscess. INTERVAL HISTORY: The patient's overall fever pattern has improved. The patient is feeling slightly better, breathing comfortably, currently n.p.o. for an MRI of the liver this afternoon. Denies any chest pain, shortness of breath or cough. No nausea, vomiting or diarrhea. EXAMINATION: Blood pressure 119/67, pulse of 78, temperature 98.3. He is 93% on 6 L nasal cannula. General description is an elderly male lying in bed in no distress. Respiratory system: Unlabored breathing. Decreased breath sounds in the bases. No wheeze. Heart S1, S2. Regular rate and rhythm. ABDOMEN: Soft, no tenderness. No guarding. No rigidity. No organomegaly. Extremities: No edema of the feet. LABS: Hemoglobin is 13.6, white count 21,000 with a BUN of 16, creatinine 0.80. Liver enzymes slightly improved except alkaline phos. Blood culture with gram-positive cocci. DIAGNOSTIC IMPRESSION AND PLAN: Patient admitted to the hospital with sepsis. The patient did have fever and elevated white count, elevated liver enzymes with abnormal CT of the liver, likely suspicious for underlying abscess, now with evidence of Gram-positive bacteremia. Await MRI of the liver. Afterwards may benefit from drainage of this liver abscess. CT-guided and the fluid should be sent both for aerobic, anaerobic, continue with vanc and Zosyn while waiting for the culture to finalize. Plan of care discussed with admitting physician has well as with the family. MMODL / IJN: [id number] /
[2017-11-18] MEDS: MULTIVITAMINS, THERA 1 EACH TAB PO SCH (17:15)
[2017-11-18] MEDS: SODIUM CHLORIDE 0.9% 1,000 ML IV SCH (17:16)
[2017-11-18] MEDS: DOXAZOSIN 4 MG TAB PO SCH (20:48)
--- NOTE | 2017-11-18 22:23 | PN ---
PROGRESS NOTE DATE OF SERVICE: 11/18/2017 This 72-year-old gentleman who was admitted with shaking chills, fever and a hepatic lesion has a possible hepatic abscess. MRI could not be done because of his increased girth. The patient was evaluated by Infectious Disease, who recommended CT-guided aspiration. No chest pain. No palpitations. No fever. The preliminary blood culture showed Gram-positive cocci in chains. On exam, alert and oriented x3. The pulse is 76, blood pressure 127/74, respiration 24, temperature 100.3, pulse ox 93% on 6 L. HEENT: Conjunctivae normal. NECK: No jugular venous distention. CARDIOVASCULAR SYSTEM: S1, S2 muffled. RESPIRATORY SYSTEM: Breath sounds diminished at the bases. A few scattered rhonchi and crackles. ABDOMEN: Soft, non-tender. LEGS: No edema. No swelling. NERVOUS SYSTEM: No focal deficit. LABS: WBC 21, hemoglobin 13.6, and AST and ALT are showing some improvement; still elevated. ASSESSMENT: 1. Shaking chills and cough with possible pneumonia, sepsis, present on admission. 2. Hepatic lesion; rule out malignancy. Possibly hepatic abscess. 3. Increased AST, ALT, bilirubin, possibly acute hepatitis of undetermined etiology. 4. Hyponatremia. 5. Increased white count. 6. History of degenerative joint disease. 7. History of hyperlipidemia. 8. History of sleep apnea. 9. History of psoriasis. 10.History of bilateral carpal tunnel syndrome. 11.History of degenerative joint disease. RECOMMENDATIONS AND DISCUSSION: I recommend to continue current medication, continue symptomatic treatment. Otherwise, CT-guided aspiration per Interventional Radiology. Cultures. Continue with antibiotics. Guarded prognosis because of multiple complex medical issues. Enterococcal abscess is also being considered at this time. Further recommendations to follow. MMODL / IJN: [id number] /
[2017-11-18] MEDS: IBUPROFEN 200 MG TAB PO PRN (22:46)
[2017-11-19] MEDS: VANCOMYCIN 1,750 MG in SODIUM CHLORIDE 0.9% 250 ML IVPB SCH ×2 (05:17→17:32)
[2017-11-19] MEDS: LEVOTHYROXINE 25 MCG TAB PO SCH (05:50)
[2017-11-19] MEDS: IPRATROPIUM-ALBUTEROL 3 ML NEB INHALATION SCH ×3 (07:05→20:39)
[2017-11-19 07:46] LABS: ALT 150 U/L (21-72); AST 113 U/L (17-59); Albumin 2.4 g/dL (3.5-5.0); Alkaline Phosphatase 295 U/L (38-126); Anion Gap 12 mmol/L; Blood Urea Nitrogen 16 mg/dL (9-20); Carbon Dioxide 26 mmol/L (22-30); Chloride 105 mmol/L (98-107); Glucose 109 mg/dL (74-99); Potassium 4.1 mmol/L (3.5-5.1); Sodium 143 mmol/L (137-145); Total Bilirubin 2.4 mg/dL (0.2-1.3); Total Protein 5.1 g/dL (6.3-8.2)
[2017-11-19 08:10] LABS: Basophils # (A) 0.1 k/uL (0-0.2); Basophils % (A) 1 %; Eosinophils # (A) 0.2 k/uL (0-0.7); Eosinophils % (A) 1 %; HCT 38.6 % (39.0-53.0); HGB 12.7 gm/dL (13.0-17.5); Lymphocytes # (A) 1.6 k/uL (1.0-4.8); Lymphocytes % (A) 8 %; MCH 29.3 pg (25.0-35.0); MCHC 32.9 g/dL (31.0-37.0); MCV 89.1 fL (80.0-100.0); Mean Platelet Volume 8.7; Monocytes # (A) 0.9 k/uL (0-1.0); Monocytes % (A) 4 %; Neutrophils # (A) 16.9 k/uL (1.3-7.7); Neutrophils % (A) 85 %; Platelet Count 368 k/uL (150-450); RBC 4.34 m/uL (4.30-5.90); RDW 14.2 % (11.5-15.5); WBC 19.9 k/uL (3.8-10.6)
[2017-11-19] MEDS: PANTOPRAZOLE 40 MG TABLET PO SCH (08:21)
[2017-11-19] MEDS: FINASTERIDE 5 MG TAB PO SCH (08:21)
[2017-11-19] MEDS: CALCIUM CARB-VIT D 500MG-200UN 1 EACH TAB PO SCH (08:21)
[2017-11-19] MEDS: OXYBUTYNIN 10 MG TAB.ER.24 PO SCH (08:21)
[2017-11-19] MEDS: CHOLECALCIFEROL 1,000 UNIT TAB PO SCH (08:21)
[2017-11-19] MEDS: metroNIDAZOLE 500 MG TAB PO SCH ×3 (08:21→21:32)
[2017-11-19] MEDS: PIPERACILLIN-TAZOBACTAM 3.375 GM in DEXTROSE/WATER 1 50ML.BAG IVPB SCH ×3 (08:21→21:32)
[2017-11-19] MEDS: HEPARIN SODIUM,PORCINE 5,000 UNIT/ML 1 ML VIAL SQ SCH ×2 (08:22→21:32)
[2017-11-19 08:45] LABS: INR 1.2 (<1.2); Prothrombin Time 11.5 sec (9.0-12.0)
[2017-11-19] MEDS ORDERED: RX INFO: IV CONTRAST WAS GIVEN 1 EACH MISC MISCELLANE PRN (09:56)
--- NOTE | 2017-11-19 10:05 | P.PN ---
Subjective Progress Note Date: 11/19/17 Principal diagnosis: Admitted with pneumonia sepsis radiographic imaging reporting liver masses with elevated liver enzymes. MRI liver/MRCP unsuccessful yesterday secondary to body habitus. Feels better. Breathing improving. T-max 100.3. White count 19.9. LFTs relatively unchanged from yesterday's. T bili 2.4. AFP and CEA within normal limits. CA-19-9 normal. FNA liver scheduled today pending radiologist's review. Objective - Vital Signs Vital signs: Vital Signs Temp 97.9 F 11/19/17 07:00 Pulse 74 11/19/17 07:12 Resp 16 11/19/17 07:12 BP 112/73 11/19/17 07:00 Pulse Ox 92 L 11/19/17 07:05 Intake & Output 11/18/17 11/19/17 11/19/17 18:59 06:59 18:59 Intake Total 1000 Output Total 150 Balance 850 Intake: Intake, IV Titration 1000 Amount Vancomycin 1,750 mg In 250 Sodium Chloride 0.9% 250 ml @ 125 mls/hr IVPB Q12HR@0600,1800 [facility] Rx#: [id number] Vancomycin 1,750 mg In 750 Sodium Chloride 0.9% 250 ml @ 125 mls/hr IVPB Q12HR@0600,1800 [facility] Rx#: [id number] Output: Urine 150 Other: Voiding Method Toilet Toilet Urinal Urinal # Voids 2 2 - Exam General appearance: The patient is alert, oriented, in no acute distress. HET: Head is normocephalic and atraumatic. Pupils are equal and reactive. Sclerae dull. Oropharynx is clear without lesions. Neck: Supple without lymphadenopathy. Trachea midline. Heart: S1 S2. Regular rate and rhythm. Lungs: No crackles or wheezes are heard. Diminished in bases bilaterally Abdomen: Soft, mild tenderness right upper quadrant, nondistended with bowel sounds. No peritoneal signs. No palpable organomegaly or masses. Extremities: Normal skin color and turgor. No cyanosis, rash, ulceration, clubbing, or edema. Radial and pedal pulses are 2/4 bilaterally. Neurological: No focal deficits. Strength and sensation are grossly intact. - Labs CBC & Chem 7: 11/19/17 06:54 11/19/17 06:54 Labs: Abnormal Lab Results - Last 24 Hours (Table) 11/19/17 11/19/17 11/19/17 Range/Units 06:54 06:54 08:25 WBC 19.9 H (3.8-10.6) k/uL Hgb 12.7 L (13.0-17.5) gm/dL Hct 38.6 L (39.0-53.0) % Neutrophils # 16.9 H (1.3-7.7) k/uL INR 1.2 H (<1.2) Glucose 109 H (74-99) mg/dL Calcium 8.0 L (8.4-10.2) mg/dL Total Bilirubin 2.4 H (0.2-1.3) mg/dL AST 113 H (17-59) U/L ALT 150 H (21-72) U/L Alkaline Phosphatase 295 H (38-126) U/L Total Protein 5.1 L (6.3-8.2) g/dL Albumin 2.4 L (3.5-5.0) g/dL Assessment and Plan (1) Liver mass Narrative/Plan: Suspicious for underlying neoplasm possible metastatic disease versus primary possible infectious. Hepatitis screen nonreactive. Current Visit: Yes Status: Acute Code(s): R16.0 - HEPATOMEGALY, NOT ELSEWHERE CLASSIFIED SNOMED Code(s): 141858085 (2) Elevated liver enzymes Narrative/Plan: Secondary to intrahepatic process possible neoplasm possible infectious Current Visit: Yes Status: Acute Code(s): R74.8 - ABNORMAL LEVELS OF OTHER SERUM ENZYMES SNOMED Code(s): 900366332 (3) Pneumonia Narrative/Plan: Sepsis fever leukocytosis Current Visit: Yes Status: Acute Code(s): J18.9 - PNEUMONIA, UNSPECIFIED ORGANISM SNOMED Code(s): 875648110 Plan: 1. Previous imaging studies were reviewed with interventional radiologist Dr. Katz liver masses possibly could be abscesses even though no gas collection is seen but at does not entirely exclude these lesions abscesses. These lesions could be tumor however his tumor markers are unremarkable remarkable which raises the possibility these are liver abscesses and his enzymes are elevated secondary to component of cholangitis/biliary infection. 2. Will repeat CT abdomen with contrast and compared to previous study before proceeding with liver FNA this may help to differentiate these liver lesions masses as abscess versus tumor. 3. Continue with IV antibiotics. Multiple consultants following. We'll continue to follow closely with you. Assessment and plan a care discussed with Dr. Newman
--- NOTE | 2017-11-19 12:00 | CT ---
EXAMINATION TYPE: CT abdomen w con DATE OF EXAM: 11/19/2017 COMPARISON: 11/17/2017 HISTORY: Liver nodules CT DLP: 1646 mGycm Automated exposure control for dose reduction was used. TECHNIQUE: Helical acquisition of images was performed from the lung bases through the top of iliac crest to include entire abdomen. CONTRAST: Performed without Oral Contrast and with IV Contrast, patient injected with 100 mL of Isovue 300. FINDINGS: LUNG BASES: Similar appearing partially visualized small bilateral pleural effusions and compressive bibasilar atelectasis are seen within the lung bases. Trace pericardial fluid is also noted. Partial intrathoracic stomach is seen. LIVER/GB: There is background mild hepatic steatosis. There is a nonstenotic morphology of the liver. Occupying hepatic segments 7, 8, and 6 there is a multiloculated centrally necrotic mass measuring u p to 13.3 x 10.5 x 9.8 cm. A similar smaller 2.2 x 2.5 x 1.9 cm mass is seen within the inferior renate in of the right hepatic lobe. Concerning the index mass there is surrounding rim of hypoattenuation l ikely representing perihepatic edema. There is very mild enhancement of the rim of this mass and inte rnal septa. No calcifications are seen. No gross evidence of portal vein thrombosis or inferior vena cava thrombosis. Incidental note of cholelithiasis. PANCREAS: No significant abnormality is seen. Pancreas enhances homogeneously without ductal dilatati on. SPLEEN: No significant abnormality is seen. No splenomegaly. ADRENALS: No thickening or nodularity. KIDNEYS: Nonspecific bilateral perinephric fat stranding is seen although the kidneys enhance and exc rete symmetrically without focal mass or hydronephrosis. BOWEL: Visualized portions of the bowel are nondilated. Few colonic diverticula are seen without per icolonic fat stranding. LYMPH NODES: No greater than 1 cm short axis lymph node is seen within the abdomen. OSSEOUS STRUCTURES: Mild multilevel degenerative changes of the thoracic spine are noted. No suspici ous osseous lesions are seen. FREE AIR: No free air is visualized. IMPRESSION: 1. CENTRALLY CYSTIC LARGE HEPATIC MULTILOCULATED MASS WITH SURROUNDING RIM ENHANCEMENT, SEPTAL ENHANC EMENT AND EDEMA. ADDITIONAL SMALLER CYSTIC INTRAHEPATIC MASS IS SEEN INFERIORLY. FINDINGS ARE CONCERN ING FOR HEPATIC ABSCESS IN THE APPROPRIATE CLINICAL SETTING OR NECROTIC METASTASIS. PERCUTANEOUS ASPI RATION OR BIOPSY COULD BE CONSIDERED. THERE IS MILD BACKGROUND HEPATIC STEATOSIS. 2. SIMILAR APPEARING PARTIALLY VISUALIZED BILATERAL SMALL PLEURAL EFFUSIONS , BIBASILAR COMPRESSIVE A TELECTASIS AND TRACE PERICARDIAL FLUID.
[2017-11-19] MEDS ORDERED: MORPHINE SULFATE 4 MG/ML SYRINGE IVP STA (12:28)
--- NOTE | 2017-11-19 13:46 | CT ---
EXAMINATION TYPE: CT guided aspiration DATE OF EXAM: 11/19/2017 COMPARISON: NONE HISTORY: Liver abscess drain placement CT DLP: 981mGycm PROCEDURE: The risks, applications, benefits and alternatives, were discussed with the patient and questions wer e answered. Informed consent was obtained. The patient was placed supine on the fluoroscopic table, prepped and draped in the usual sterile fashion. A 22-gauge system was utilized with direct passage of the needle into the large liver mass under CT guidance. Samples obtained for pathology. Discussion was performed with referring physician requeste d insertion of drainage catheter for hepatic abscess. Conversion to an O.035 system and placement of an O0350 guidewire. Serial dilation [address] ment 8 Mozambican drainage catheter. The patient was stable throughout procedure and remained stable upon discharge from radiology. All e lements of maximal barrier and sterile technique were utilized. IMPRESSION: 1. Successful successful hepatic abscess drainage catheter insertion under CT guidance.
--- NOTE | 2017-11-19 14:03 | PN ---
PROGRESS NOTE DATE OF SERVICE: 11/19/2017 REASON FOR FOLLOWUP: Liver abscess with gram-positive bacteremia. INTERVAL HISTORY: The patient is afebrile. The patient is status post a CT-guided aspirate of this liver mass, which was noticed to be purulent drainage/ catheter has been placed for continuous drainage. The patient tolerated the procedure. Denies having any chest pain or any worsening abdominal pain. No nausea, vomiting or any diarrhea. PHYSICAL EXAMINATION: On examination, blood pressure 117/60 with a pulse of 87, temperature 98. He is 92% on 6 L nasal cannula. General description is an elderly male, lying in bed in no distress. RESPIRATORY SYSTEM: Unlabored breathing, clear to auscultation anteriorly. HEART: S1, S2. Regular rate and rhythm. ABDOMEN EXAMINATION: The drainage catheter is mostly purulent secretion. LABS: White count of 19.9 with a BUN of 16, creatinine 0.88. Blood culture with gram- positive, ID sensitivity is pending. DIAGNOSTIC IMPRESSION AND PLAN: Patient with abdominal abscess. Status post CT-guided drainage. However, the abscess cavity is multiloculated and may need an open drainage. Keep the patient on Zosyn and vancomycin while waiting for the culture to finalize. Continue with supportive care. MMODL / IJN: [id number] /
[2017-11-19] MEDS: MULTIVITAMINS, THERA 1 EACH TAB PO SCH (14:09)
[2017-11-19] MEDS: FUROSEMIDE 10 MG/ML 2 ML VIAL IV SCH (14:44)
[2017-11-19] MEDS: IBUPROFEN 200 MG TAB PO PRN (14:44)
[2017-11-19] MEDS: IPRATROPIUM-ALBUTEROL 3 ML NEB INHALATION PRN (16:48)
[2017-11-19] MEDS ORDERED: VANCOMYCIN TROUGH DUE 1 EACH MISC MISCELLANE ONE (17:00)
--- NOTE | 2017-11-19 19:27 | PN ---
PROGRESS NOTE DATE OF SERVICE: 11/19/2017. INTERVAL HISTORY: This 72-year-old gentleman who was admitted with and possible hepatic abscess, had a fine-needle aspiration by the Interventional Radiology. The patient underwent a drainage tube insertion and the patient was being closely monitored. No chest pain. No palpitations. No fever. EXAM: Alert and oriented x3. Pulse is 78, blood pressure 170/76, respirations 16, temperature 100.7, pulse ox 98% on 6 L. HEENT is conjunctivae normal. NECK: No jugular venous distention. No carotid bruit. Cardiac: S1, S2. Respirations: Breath sounds diminished in the bases. A few scattered rhonchi and crackles. Abdomen is soft, nontender. Legs are no edema. No swelling. Central nervous system: No focal deficits. LABORATORY DATA: WBC 19.9, INR is 1.2. LFTs are noted. ASSESSMENT: 1. Shakiness and cough with possible acute hepatic abscess status post CT-guided drainage. 2. Possible right lower lobe pneumonia. 3. Increased AST, ALT, bilirubin, possibly 2nd hepatitis. 4. Hyponatremia. 5. Increased WBC. 6. Degenerative joint disease. 7. History of hyperlipidemia. 9. Psoriasis. 10.History of bilateral carpal tunnel syndrome. 11.History of degenerative joint disease. RECOMMENDATIONS AND DISCUSSION: I recommend to continue current management and symptomatic treatment, continue current medications, continue the broad-spectrum IV antibiotics. Follow the cultures. Closely follow with Infectious Disease. Guarded prognosis. Further recommendations to follow. MMTHAOL / NEVILLEN: [id number] / MTDD
[2017-11-19] MEDS: DOXAZOSIN 4 MG TAB PO SCH (21:33)
[2017-11-19] MEDS: SODIUM CHLORIDE 0.9% 1,000 ML IV SCH (23:03)
[2017-11-20] MEDS: PIPERACILLIN-TAZOBACTAM 3.375 GM in DEXTROSE/WATER 1 50ML.BAG IVPB SCH ×3 (05:17→23:54)
[2017-11-20] MEDS: VANCOMYCIN 1,750 MG in SODIUM CHLORIDE 0.9% 250 ML IVPB SCH ×2 (05:17→17:28)
[2017-11-20] MEDS: LEVOTHYROXINE 25 MCG TAB PO SCH (05:17)
[2017-11-20 07:22] LABS: Basophils # (A) 0.1 k/uL (0-0.2); Basophils % (A) 0 %; Eosinophils # (A) 0.1 k/uL (0-0.7); Eosinophils % (A) 0 %; HCT 40.2 % (39.0-53.0); HGB 12.9 gm/dL (13.0-17.5); Lymphocytes % (A) 8 %; MCH 28.6 pg (25.0-35.0); MCV 89.4 fL (80.0-100.0); Monocytes # (A) 0.7 k/uL (0-1.0); Monocytes % (A) 2 %; Neutrophils # (A) 23.8 k/uL (1.3-7.7); Neutrophils % (A) 88 %; Platelet Count 431 k/uL (150-450); RBC 4.49 m/uL (4.30-5.90); RDW 14.3 % (11.5-15.5)
[2017-11-20 07:30] LABS: Albumin 2.3 g/dL (3.5-5.0); Potassium 4.3 mmol/L (3.5-5.1); Total Bilirubin 2.1 mg/dL (0.2-1.3); Total Protein 4.9 g/dL (6.3-8.2)
[2017-11-20 07:36] LABS: WBC 26.9 k/uL (3.8-10.6)
[2017-11-20] MEDS: IPRATROPIUM-ALBUTEROL 3 ML NEB INHALATION SCH ×3 (08:09→19:26)
[2017-11-20] MEDS: metroNIDAZOLE 500 MG TAB PO SCH ×3 (09:01→23:54)
[2017-11-20] MEDS: PANTOPRAZOLE 40 MG TABLET PO SCH (09:01)
[2017-11-20] MEDS: CHOLECALCIFEROL 1,000 UNIT TAB PO SCH (09:01)
[2017-11-20] MEDS: OXYBUTYNIN 10 MG TAB.ER.24 PO SCH (09:01)
[2017-11-20] MEDS: FINASTERIDE 5 MG TAB PO SCH (09:01)
[2017-11-20] MEDS: CALCIUM CARB-VIT D 500MG-200UN 1 EACH TAB PO SCH (09:01)
[2017-11-20] MEDS: FUROSEMIDE 10 MG/ML 2 ML VIAL IV SCH (09:25)
--- NOTE | 2017-11-20 11:13 | XR ---
EXAMINATION TYPE: XR chest 1V portable DATE OF EXAM: 11/20/2017 HISTORY: pneumonia rt. REFERENCE: Previous study dated 11/16/2017. FINDINGS: There is apparent elevation of the right hemidiaphragm. There is left basilar airspace dise ase this has worsened. There is a small left pleural effusion. Heart size is upper limits of normal. IMPRESSION: 1. WORSENING LEFT BASILAR AIRSPACE DISEASE. 2. SMALL LEFT EFFUSION.
[2017-11-20] MEDS: MULTIVITAMINS, THERA 1 EACH TAB PO SCH (13:01)
[2017-11-20] MEDS: HEPARIN SODIUM,PORCINE 5,000 UNIT/ML 1 ML VIAL SQ SCH ×2 (13:01→20:39)
[2017-11-20 14:18] LABS: Appearance,BF Bloody; Nucleated Cells, Body Fluid 8400 /uL; RBC, Body Fluid 16880 /uL
[2017-11-20 14:20] LABS: Mononuclear WBC,Body Fluid 3 %; Polynuclear WBC,Body Fluid 97 %; Total Cells Counted,Body Fluid 100
[2017-11-20 16:04] LABS: ABG Base Excess 1.1 mmol/L; ABG HCO3 24 mmol/L (21-25); ABG PCO2 30 mmHg (35-45); ABG PH 7.51 (7.35-7.45); ABG PO2 68 mmHg (83-108); ABG TCO2 25 mmol/L (19-24)
[2017-11-20 16:27] LABS: Glucose,Whole Blood 173 mg/dL (75-99)
--- NOTE | 2017-11-20 16:30 | XR ---
EXAMINATION TYPE: XR chest 1V DATE OF EXAM: 11/20/2017 COMPARISON: Today HISTORY: Short of breath. Hypoxemia. TECHNIQUE: Single frontal view of the chest is obtained. FINDINGS: There is poor aspiration. There is some infiltrate at the left lung base. There is no barrett s heart failure. There is old left-sided healed rib fracture. There are chest leads. IMPRESSION: Left lower lobe pneumonia. No gross heart failure. No change compared to exam earlier to day.
--- NOTE | 2017-11-20 17:01 | PN ---
PROGRESS NOTE DATE OF SERVICE: 11/20/2017 This 72-year-old gentleman who was admitted with hepatic abscess had CT-guided drainage. BHANU drain in place at this time. The final culture reports are pending at this time. The patient also had some shortness of breath. The most recent chest x-ray showed elevated right hemidiaphragm. No chest pain. No palpitations. No fever. PHYSICAL EXAMINATION: Alert and oriented x3. Pulse is 87, blood pressure 112/64, respiration 18, temperature 97.8, pulse ox 93% on 6 L. HEENT: Conjunctivae normal. NECK: No jugular venous distention. CARDIOVASCULAR SYSTEM: S1, S2 muffled. RESPIRATORY SYSTEM: Breath sounds diminished at the bases. No rhonchi. No crackles. ABDOMEN: Soft. BHANU drain in the lower part of the chest present on the right side. LEGS: No edema. No swelling. NERVOUS SYSTEM: Higher functions as mentioned earlier. Moves all 4 limbs. No focal motor or sensory deficit. LYMPHATICS: No lymph node palpable in neck, axillae or groin. SKIN: No ulcer, rash, bleeding. LAB STUDIES: WBC 26.9, hemoglobin 12.9, glucose 112. ASSESSMENT: 1. Acute hepatic abscess, possibly anaerobic, status post CT-guided drainage with sepsis, present on admission. 2. Possible right lower lobe pneumonia with effusion. 3. Hypoxic respiratory failure secondary to pneumonia and sepsis. 4. Increased AST, ALT, bilirubin, possibly secondary to hepatitis. 5. Hyponatremia. 6. Increased white count. 7. Degenerative joint disease. 8. History of hyperlipidemia. 9. History of psoriasis. 10.History of bilateral carpal tunnel syndrome. 11.History of degenerative joint disease. RECOMMENDATIONS AND DISCUSSION: I recommend to continue current medication, continue with the monitoring, symptomatic treatment. Otherwise at this time I would recommend continuing with broad-spectrum IV antibiotics. The white count is slightly elevated. I will check the lactic acid and continue to monitor. The blood culture from the previous culture is showing anaerobic Gram-positive cocci. We will repeat the blood cultures also. Prognosis guarded. Further recommendations to follow. MMODL / IJN: [id number] /
[2017-11-20] MEDS: SODIUM CHLORIDE 0.9% 1,000 ML IV SCH (17:29)
[2017-11-20 20:35] LABS: Glucose,Whole Blood 166 mg/dL (75-99)
[2017-11-20] MEDS: INSULIN ASPART 100 UNIT/ML 1 ML 10 ML VIAL SQ SCH (20:38)
[2017-11-20] MEDS: DOXAZOSIN 4 MG TAB PO SCH (20:38)
[2017-11-20] MEDS: traMADol 50 MG TAB PO PRN (21:52)
--- NOTE | 2017-11-20 23:22 | PN ---
PROGRESS NOTE DATE OF SERVICE: 11/20/2017. REASON FOR FOLLOWUP: Liver abscess. INTERVAL HISTORY: The patient was seen on rounds this afternoon with the patient overall fever pattern has improved. The highest temperature was yesterday afternoon at 100.7. The patient has been breathing comfortably. Denies any chest pain, cough. No abdominal pain. No nausea, vomiting, or any diarrhea. EXAMINATION: Blood pressure 120/71 with a pulse of 80, temperature of 99. He is 92% on 4 L nasal cannula. General description is an elderly male lying in bed in no distress. Respiratory system: Unlabored breathing with decreased breath sounds in the bases. No wheeze. Heart S1, S2. Tachycardic. ABDOMEN: Soft. The drainage catheter is Extremities: No edema of the feet. LABS: Hemoglobin 12.8, white count 26.9, BUN of 22, creatinine 1.05. Cultures are currently pending. DIAGNOSTIC IMPRESSION AND PLAN: Patient with a liver abscess status post CT-guided drainage. However, the abscess cavity was multiloculated and may need to be evaluated by Surgery and consultation for possible open drainage. He is currently on Zosyn and Vanco while waiting for the culture to finalize. Continue supportive care. MMODL / IJN: [id number] /
[2017-11-21] MEDS: IBUPROFEN 200 MG TAB PO PRN (00:31)
[2017-11-21 04:48] LABS: Basophils # (A) 0.1 k/uL (0-0.2); Basophils % (A) 1 %; Eosinophils # (A) 0.4 k/uL (0-0.7); Eosinophils % (A) 2 %; HCT 41.1 % (39.0-53.0); HGB 13.6 gm/dL (13.0-17.5); Lymphocytes # (A) 2.3 k/uL (1.0-4.8); Lymphocytes % (A) 10 %; MCH 29.1 pg (25.0-35.0); MCV 88.2 fL (80.0-100.0); Mean Platelet Volume 8.1; Monocytes # (A) 0.6 k/uL (0-1.0); Monocytes % (A) 3 %; Neutrophils # (A) 19.7 k/uL (1.3-7.7); Neutrophils % (A) 84 %; Platelet Count 478 k/uL (150-450); RBC 4.67 m/uL (4.30-5.90); RDW 14.1 % (11.5-15.5); WBC 23.4 k/uL (3.8-10.6)
[2017-11-21 04:59] LABS: Albumin 2.4 g/dL (3.5-5.0); Calcium 8.4 mg/dL (8.4-10.2); Magnesium 2.1 mg/dL (1.6-2.3); Potassium 4.1 mmol/L (3.5-5.1); Total Bilirubin 1.4 mg/dL (0.2-1.3); Total Protein 5.2 g/dL (6.3-8.2)
[2017-11-21] MEDS ORDERED: VANCOMYCIN TROUGH DUE 1 EACH MISC MISCELLANE ONE (05:00)
[2017-11-21] MEDS: VANCOMYCIN 1,750 MG in SODIUM CHLORIDE 0.9% 250 ML IVPB SCH ×2 (06:14→20:47)
[2017-11-21] MEDS: LEVOTHYROXINE 25 MCG TAB PO SCH (06:14)
[2017-11-21] MEDS: PIPERACILLIN-TAZOBACTAM 3.375 GM in DEXTROSE/WATER 1 50ML.BAG IVPB SCH ×2 (06:14→14:39)
--- NOTE | 2017-11-21 06:45 | XR ---
EXAMINATION TYPE: XR chest 1V portable DATE OF EXAM: 11/21/2017 HISTORY: pneumonia. REFERENCE: Previous study dated 11/20/2017. FINDINGS: There is chronic apparent elevation right hemidiaphragm. There is left basilar airspace dis ease. Both CP angles are mildly blunted and I could not exclude small effusions. Heart size is upper limits of normal. IMPRESSION: 1. CONTINUING LEFT BASILAR AIRSPACE DISEASE. 2. I COULD NOT EXCLUDE SMALL, BILATERAL EFFUSIONS.
[2017-11-21 07:10] LABS: Glucose,Whole Blood 106 mg/dL (75-99)
[2017-11-21] MEDS: INSULIN ASPART 100 UNIT/ML 1 ML 10 ML VIAL SQ SCH ×4 (08:04→21:31)
[2017-11-21] MEDS: IPRATROPIUM-ALBUTEROL 3 ML NEB INHALATION SCH ×3 (08:17→19:37)
[2017-11-21] MEDS: metroNIDAZOLE 500 MG TAB PO SCH ×3 (08:22→20:38)
[2017-11-21] MEDS: FINASTERIDE 5 MG TAB PO SCH (08:22)
[2017-11-21] MEDS: PANTOPRAZOLE 40 MG TABLET PO SCH (08:23)
[2017-11-21] MEDS: CHOLECALCIFEROL 1,000 UNIT TAB PO SCH (08:23)
[2017-11-21] MEDS: OXYBUTYNIN 10 MG TAB.ER.24 PO SCH (08:23)
[2017-11-21] MEDS: HEPARIN SODIUM,PORCINE 5,000 UNIT/ML 1 ML VIAL SQ SCH ×2 (08:23→20:48)
[2017-11-21] MEDS: CALCIUM CARB-VIT D 500MG-200UN 1 EACH TAB PO SCH (08:23)
[2017-11-21] MEDS: FUROSEMIDE 10 MG/ML 2 ML VIAL IV SCH (09:24)
[2017-11-21] MEDS: MULTIVITAMINS, THERA 1 EACH TAB PO SCH ×2 (12:09→12:10)
[2017-11-21 12:11] LABS: Glucose,Whole Blood 118 mg/dL (75-99)
--- NOTE | 2017-11-21 13:20 | P.PN ---
Subjective Progress Note Date: 11/21/17 A 72-year-old male patient came into the hospital because of some cough and congestion and increased shortness of breath. The patient apparently developed some cold chills approximately 2 days ago. Subsequently he started feeling sick and later on he became more short of breath as the patient had cough and congestion of the chest and he was concern for pneumonia. For that reason he came into the hospital for further evaluation. He is a lifetime nonsmoker. No pleurisy. No hemoptysis. No recurrent pneumonias. No history of alcoholism. No history of any chronic lung disease or disorder. The patient was found to have a white cell count of 18.7 at time of admission and the LFTs were quite abnormal with elevation and ALP and AST and mild elevation of the alkaline phosphatase. Based on that a CAT scan of the abdomen was done and showed abnormal appearance of the liver with a large 10 cm x 8 cm mass in the posterior dissector of the right lower lobe of the liver and this finding was suspicious for malignancy. The gallbladder and ducts are within normal limits. The patient had multiple gallstones that appears to be around 67 mm in size. There was no evidence of any anti-or extrahepatic ductal dilatation. Pancreas was within normal limits. Lung bases showed some pleural thickening otherwise within normal limits. Elevation of the right hemidiaphragm was noted and this was present on previous CAT scans. Note that the patient's EGD from October 2017 showed schatzki's ring and there was erosive gastritis and moderate size hiatal hernia and hiatal hernia was also seen in the CAT scan of the abdomen. The patient also had a colonoscopy in 2014 and it showed no acute abnormalities. No reported history of abdominal pain. No nausea. No vomiting. No diarrhea. No fever. No chills. He is known to have obstructive sleep apnea using and he was using his CPAP on outpatient basis. No other history of malignancy. The patient is seen again today 11/18/2017 in follow-up on the regular medical floor. He remains awake and alert in no acute distress. He states his breathing is easier today as compared to yesterday. Computed tomography scan of the chest ruled out pulmonary embolism. There is some new small bilateral pleural effusions suggestive of fluid overload state. His current receiving IV Lasix 20 mg daily. Still requiring 7 L high flow nasal cannula to maintain O2 saturations in the low 90s. White count 21. Hemoglobin 13.6. Creatinine 0.80. AST 134, ALT 175. Total bilirubin 2.1, calcium 8.2. AFP less than 1.3. CEA 1.2. GI services and oncology on the case as well. On 11/21/2017, this patient got moved to the intensive care unit and the patient is being seen in follow-up. I got a phone call yesterday that the patient was becoming progressively more hypoxic and tachypneic and for that reason I put the patient on high flow oxygen at 8 L/m nasal cannula and I moved into the intensive care unit. A stat blood gases was done and the patient was found to have a mild component of respiratory alkalosis. The pH was at 7.51 with a pCO2 of 33. The patient was on 8 L of oxygen by nasal cannula and the pulse ox was 95% with a oxygen level of 68. A chest x-ray was done and showed a chronic elevation of the right hemidiaphragm and left basilar infiltration. The patient got moved to the intensive care unit and he is being monitored. Overnight he did very well. This morning he is very comfortable and Dr. levels are stable and FiO2 has been weaned down to 6 L of oxygen nasal cannula. His blood cultures are positive for gram-positive cocci in chains. Awaiting further cultures and sensitivities. The patient had 2 [id number] blood cultures that were positive. In addition, the liver abscess was drained and the cultures from the fluid is still pending for now. This morning, the liver drain has put out approximately 70-80 mL of dark red exudative fluid. The hemoglobin is at 13.6. The white cell count remains elevated at 23.4. The patient is producing adequate amount of urine output. The electrodes are all within normal limits, and the patient's creatinine is up to 1.2. Antibiotic coverage remains a combination of vancomycin, Zosyn and Flagyl. ID is on the case. As mentioned earlier, a dedicated CAT scan of the abdomen showed a liver lesion centrally cystic and multiloculated with surrounding rim of enhancement and edema. In addition, smaller cystic intrahepatic lesions are seen inferiorly and the findings were consistent and concerning of hepatic abscesses although the possibility of necrotic metastases cannot be completely excluded. Fluid was sent also for cytology and the results are still pending for now. Objective - Vital Signs Vital signs: Vital Signs Temp 97.7 F 11/21/17 12:00 Pulse 106 H 11/21/17 12:00 Resp 27 H 11/21/17 12:00 BP 101/71 11/21/17 12:00 Pulse Ox 96 11/21/17 12:00 Intake & Output 11/20/17 11/21/17 11/21/17 18:59 06:59 18:59 Intake Total 160 570 100 Output Total 900 570 650 Balance -740 0 -550 Weight 102.4 kg 103.3 kg Intake: IV 270 100 Piperacillin-Tazobactam 3 50 .375 gm In Dextrose/Water 1 50ml.bag @ 12.5 mls/hr IVPB Q8H MARIA ISABEL Rx#: [id number] Sodium Chloride 0.9% 1, 220 100 000 ml @ 20 mls/hr IV . Q24H MARIA ISABEL Rx#:[id number] Oral 160 300 Output: Drainage 20 100 Right Lateral Abdomen 20 100 Urine 900 550 550 Other: Voiding Method Toilet Toilet Toilet Urinal Urinal Urinal # Voids 1 1 - Exam Gen. appearance the patient is calm comfortable likely distress Head exam was generally normal. There was no scleral icterus or corneal arcus. Mucous membranes were moist. Neck was supple and without jugular venous distension, thyromegaly, or carotid bruits. Carotids were easily palpable bilaterally. There was no adenopathy. Lungs sounds are diminished bilaterally especially in the right lung base. No wheezes or rhonchi. Minimal crackles in the lung bases bilaterally. Cardiac exam revealed the PMI to be normally situated and sized. The rhythm was regular and no extrasystoles were noted during several minutes of auscultation. The first and second heart sounds were normal and physiologic splitting of the second heart sound was noted. There were no murmurs, rubs, clicks, or gallops. Abdominal exam revealed normal bowel sounds. The abdomen was soft, non-tender, and without masses, organomegaly, or appreciable enlargement of the abdominal aorta. The patient has a liver drain in the right lateral abdominal wall. Output is noted. No direct tenderness. No rebound tensile guarding. Examination of the extremities revealed easily palpable radial, femoral and pedal pulses. There was no cyanosis, clubbing or edema. Examination of the skin revealed no evidence of significant rashes, suspicious appearing nevi or other concerning lesions. Neurologic the patient is awake and alert and there is no focal neurological deficit. - Labs CBC & Chem 7: 11/21/17 04:23 11/21/17 04:23 Labs: Abnormal Lab Results - Last 24 Hours (Table) 11/20/17 11/20/17 11/20/17 Range/Units 15:19 16:00 16:24 WBC (3.8-10.6) k/uL Plt Count (150-450) k/uL Neutrophils # (1.3-7.7) k/uL ABG pH 7.51 H (7.35-7.45) ABG pCO2 30 L (35-45) mmHg ABG pO2 68 L (83-108) mmHg ABG Total CO2 25 H (19-24) mmol/L BUN (9-20) mg/dL Glucose (74-99) mg/dL POC Glucose (mg/dL) 173 H (75-99) mg/dL Plasma Lactic Acid Sung 2.5 H* (0.7-2.0) mmol/L Total Bilirubin (0.2-1.3) mg/dL ALT (21-72) U/L Alkaline Phosphatase (38-126) U/L Total Protein (6.3-8.2) g/dL Albumin (3.5-5.0) g/dL 11/20/17 11/21/17 11/21/17 Range/Units 20:34 04:23 04:23 WBC 23.4 H (3.8-10.6) k/uL Plt Count 478 H (150-450) k/uL Neutrophils # 19.7 H (1.3-7.7) k/uL ABG pH (7.35-7.45) ABG pCO2 (35-45) mmHg ABG pO2 (83-108) mmHg ABG Total CO2 (19-24) mmol/L BUN 23 H (9-20) mg/dL Glucose 115 H (74-99) mg/dL POC Glucose (mg/dL) 166 H (75-99) mg/dL Plasma Lactic Acid Sung (0.7-2.0) mmol/L Total Bilirubin 1.4 H (0.2-1.3) mg/dL ALT 93 H (21-72) U/L Alkaline Phosphatase 232 H (38-126) U/L Total Protein 5.2 L (6.3-8.2) g/dL Albumin 2.4 L (3.5-5.0) g/dL 11/21/17 11/21/17 Range/Units 07:10 12:09 WBC (3.8-10.6) k/uL Plt Count (150-450) k/uL Neutrophils # (1.3-7.7) k/uL ABG pH (7.35-7.45) ABG pCO2 (35-45) mmHg ABG pO2 (83-108) mmHg ABG Total CO2 (19-24) mmol/L BUN (9-20) mg/dL Glucose (74-99) mg/dL POC Glucose (mg/dL) 106 H 118 H (75-99) mg/dL Plasma Lactic Acid Sung (0.7-2.0) mmol/L Total Bilirubin (0.2-1.3) mg/dL ALT (21-72) U/L Alkaline Phosphatase (38-126) U/L Total Protein (6.3-8.2) g/dL Albumin (3.5-5.0) g/dL Microbiology - Last 24 Hours (Table) 11/19/17 12:45 Gram Stain - Preliminary Aspirate Body Fluid Culture - Preliminary Assessment and Plan Plan: Assessment 1 liver mass on that investigation. The liver mass has been centrally cystic yet has a rim with increased edema and seems to multivessel stated in addition to some satellite smaller lesions. Very highly suspicious for liver abscesses special that the patient has white cell count and is acting septic in addition to a positive blood cultures 2 indicating gram-positive cocci. Underlying metastasis it liver or primary liver malignancy cannot be completely excluded. The tumor markers of been negative. Fluid cytology still pending for now. Fluid cultures also pending for now. Blood cultures positive for gram-positive cocci and the patient is on the combination of Zosyn and vancomycin and Flagyl. ID is on the case. 2 chronic right hemidiaphragmatic elevation 3 acute hypoxic respiratory failure with left basilar infiltration, possibly an underlying pneumonia. Rule out hypoxemia secondary to sepsis induced VQ mismatch. 4 leukocytosis secondary to above 5 abnormalities in LFTs secondary to above 6 psoriasis 7 moderate-sized hiatal hernia 8 BPH 9 hypothyroidism 10 hyperlipidemia 11 chronic back pain with spinal stenosis Plan Keep the patient in ICU. Monitor the output from the liver drain. Awaiting cultures from the liver fluids and the blood cultures. Continue same antibiotic coverage. Monitor white count. Discussed the findings with interventional radiology and obvious to the patient will need a follow-up CAT scan of the liver to assess the extent of drainage and assess the need for any surgical intervention should there be any residual loculated fluid within the liver. Meanwhile, the fluid cytology still pending for now. That'll be important also to check to rule out the possibility of malignancy. Drop the FiO2 down to 6 L of oxygen nasal cannula. Encourage use of incentive spirometer. Continue the DuoNeb nebulized treatments around the clock. Follow- up chest x-ray from this morning was noted. We'll continue to follow make further recommendations based on his progress. Critically care evaluation.
[2017-11-21 17:10] LABS: Glucose,Whole Blood 112 mg/dL (75-99)
[2017-11-21] MEDS: AMPICILLIN-SULBACTAM 3 GM in SODIUM CHLORIDE 0.9% 100 ML IVPB SCH (18:15)
[2017-11-21] MEDS: SODIUM CHLORIDE 0.9% 1,000 ML IV SCH (18:15)
--- NOTE | 2017-11-21 19:08 | PN ---
PROGRESS NOTE DATE OF SERVICE: 11/21/2017 This 72-year-old gentleman admitted with possible anaerobic hepatic abscess as a transfer to ICU overnight because of respiratory difficulties and hypoxia. The patient had CT guided BHANU drain is draining well at this time with serosanguineous fluid at this time. The abscess is multilocular. Dr. Art is following the patient closely as well. The final cultures are pending at this time, possibly anaerobic. PAST MEDICAL HISTORY: Reviewed. REVIEW OF SYSTEMS: CARDIOVASCULAR: No angina. RESPIRATORY: As mentioned earlier. GI: No nausea. : No dysuria. NERVOUS SYSTEM: No numbness or weakness. MEDICATIONS: Reviewed and include: 1. DuoNeb q.i.d. and p.r.n. 2. Os-Naveen with vitamin D. 3. Vitamin D3 5000 daily. 4. Cardura 4 mg q.h.s. 5. Proscar 5 mg. 6. Lasix 20 mg IV daily. 7. Heparin 5000 units subcutaneously b.i.d. 8. Advil. 9. NovoLog scale. 10.Synthroid 25 mcg p.o. daily. 11.Flagyl 500 mg p.o. t.i.d. 12.Multivitamins. 13.Levophed. 14.Ditropan XL 10 mg. 15.Protonix. 16.Zosyn. 17.Ultram. 18.Vancomycin. PHYSICAL EXAM: Patient is alert, oriented x3. Pulse 76, blood pressure 99/72, respiration 17, temp 97.7, pulse ox 97% on 6 L. HEENT: Conjunctivae normal. Oral mucosa moist. NECK: No jugular venous distention. No carotid bruit. No lymph node enlargement. CARDIOVASCULAR: S1, S2 muffled. RESPIRATORY: Breath sounds diminished at the bases especially on the right side. Scattered rhonchi and crackles. Expiratory wheezing. ABDOMEN: Soft, nontender. No mass palpable. BHANU drain. LEGS: No edema, no swelling. NERVOUS SYSTEM: Higher functions as mentioned, moves all 4 limbs. No focal motor deficits. LYMPHATICS: No lymphadenopathy in the neck, axillae, groin. SKIN: No ulcer, rashes, bleeding. LABS: WBC 23.4, platelets 478. Total bilirubin is 1.4 showing diminishing trend. ASSESSMENT: 1. Acute hepatic abscess, possibly anaerobic multiloculated status post CT-guided drainage with sepsis present on admission. 2. Acute hypoxic respiratory failure multifactorial. 3. Possible right lower lobe pneumonia with effusion. 4. Increased AST, ALT, bilirubin, possibly 2nd hepatitis. 5. Hyponatremia. 6. Increased WBC. 7. Degenerative joint disease. 8. History of hyperlipidemia. 9. History of psoriasis. 10.History of bilateral carpal tunnel syndrome. 11.History of degenerative joint disease. RECOMMENDATIONS AND DISCUSSION: I recommend to continue current management and symptomatic treatment. Continue the broad-spectrum IV antibiotics. Continue high-flow oxygen, incentive spirometry, DVT prophylaxis. Closely monitor with multiple consultants. Prognosis guarded. Discussed with the patient who understands. Further recommendations to follow. MMODL / IJN: [id number] /
[2017-11-21 20:30] LABS: Glucose,Whole Blood 137 mg/dL (75-99)
[2017-11-21] MEDS: DOXAZOSIN 4 MG TAB PO SCH (20:38)
--- NOTE | 2017-11-21 22:44 | PN ---
PROGRESS NOTE DATE OF SERVICE: 11/21/2017. REASON FOR FOLLOW UP: Liver abscess with sepsis. INTERVAL HISTORY: The patient is afebrile. The patient has been transferred to the ICU with concern for his respiratory status with subsequently has stabilized, currently on 4 L of oxygen. The patient denies having any chest pain. He did have very minimal cough not bringing sputum. Denies any abdominal pain and no diarrhea. EXAMINATION: Blood pressure 109/59 with a pulse of 82, temperature 98.4. He is 95% on 4 L nasal cannula. General description is an elderly male up in the chair in no distress. Respiratory system: Unlabored breathing with decreased breath sounds in the bases. No wheeze. Heart S1, S2 regular rate and rhythm. Abdomen soft, no tenderness, guarding or rigidity. Extremities: No edema of the feet. LABS: Hemoglobin 13.6, white count of 23.4 with a BUN of 23, creatinine 1.20. Deep culture with anaerobic gram-positive cocci. Blood culture repeat has been negative. The liver aspirate culture currently pending. DIAGNOSTIC IMPRESSION AND PLAN: Patient with sepsis, source of the liver abscess, status post a CT-guided drainage. In view of the multiloculated fluid, may benefit from surgical evaluation and possible laparoscopic or open drainage. Antibiotic adjusted to Unasyn and continue Vanco, discontinue Zosyn and watch his clinical course closely. was present at bedside. Her questions were answered. MMODL / IJN: [id number] /
[2017-11-22] MEDS: AMPICILLIN-SULBACTAM 3 GM in SODIUM CHLORIDE 0.9% 100 ML IVPB SCH ×6 (05:57→23:15)
[2017-11-22 06:07] LABS: Glucose,Whole Blood 99 mg/dL (75-99)
[2017-11-22] MEDS: INSULIN ASPART 100 UNIT/ML 1 ML 10 ML VIAL SQ SCH ×4 (06:17→21:08)
[2017-11-22 06:35] LABS: Albumin 2.5 g/dL (3.5-5.0); Basophils # (A) 0.1 k/uL (0-0.2); Basophils % (A) 1 %; Calcium 8.4 mg/dL (8.4-10.2); Eosinophils # (A) 0.4 k/uL (0-0.7); Eosinophils % (A) 2 %; HCT 39.7 % (39.0-53.0); HGB 12.9 gm/dL (13.0-17.5); Lymphocytes # (A) 2.6 k/uL (1.0-4.8); Lymphocytes % (A) 13 %; MCHC 32.6 g/dL (31.0-37.0); Mean Platelet Volume 8.6; Monocytes # (A) 0.7 k/uL (0-1.0); Monocytes % (A) 4 %; Neutrophils # (A) 16.2 k/uL (1.3-7.7); Neutrophils % (A) 80 %; Platelet Count 620 k/uL (150-450); Potassium 4.3 mmol/L (3.5-5.1); RBC 4.47 m/uL (4.30-5.90); RDW 14.4 % (11.5-15.5); Total Bilirubin 0.9 mg/dL (0.2-1.3); Total Protein 5.2 g/dL (6.3-8.2); WBC 20.3 k/uL (3.8-10.6)
[2017-11-22] MEDS: LEVOTHYROXINE 25 MCG TAB PO SCH (06:52)
[2017-11-22] MEDS: PANTOPRAZOLE 40 MG TABLET PO SCH (06:53)
[2017-11-22] MEDS: IPRATROPIUM-ALBUTEROL 3 ML NEB INHALATION SCH ×3 (07:36→19:11)
--- NOTE | 2017-11-22 08:52 | XR ---
EXAMINATION TYPE: XR chest 1V portable DATE OF EXAM: 11/22/2017 COMPARISON: 11/21/2017 HISTORY: Pneumonia TECHNIQUE: Single frontal view of the chest is obtained. FINDINGS: Left lower lobe consolidation and bilateral small effusion noted. Subsegmental consolidati on medial aspect right lung base stable. Chronic rib deformities. Arthropathy of the shoulders and di ffuse osteopenia. IMPRESSION: Bilateral subsegmental consolidation and small effusion stable.
[2017-11-22] MEDS: FUROSEMIDE 10 MG/ML 2 ML VIAL IV SCH (09:19)
[2017-11-22] MEDS: HEPARIN SODIUM,PORCINE 5,000 UNIT/ML 1 ML VIAL SQ SCH ×2 (09:19→19:42)
[2017-11-22] MEDS: CALCIUM CARB-VIT D 500MG-200UN 1 EACH TAB PO SCH (09:19)
[2017-11-22] MEDS: OXYBUTYNIN 10 MG TAB.ER.24 PO SCH (09:20)
[2017-11-22] MEDS: CHOLECALCIFEROL 1,000 UNIT TAB PO SCH (09:20)
[2017-11-22] MEDS: FINASTERIDE 5 MG TAB PO SCH (09:20)
[2017-11-22] MEDS: metroNIDAZOLE 500 MG TAB PO SCH ×3 (09:20→19:42)
[2017-11-22] MEDS: traMADol 50 MG TAB PO PRN ×2 (09:33→16:15)
[2017-11-22] MEDS: MULTIVITAMINS, THERA 1 EACH TAB PO SCH (11:15)
[2017-11-22 11:35] LABS: Hemoglobin A1C 5.6 % (4.0-6.0)
[2017-11-22 11:38] LABS: Glucose,Whole Blood 114 mg/dL (75-99)
[2017-11-22] MEDS: IOPAMIDOL-300 CONTRAST 30 ML VIAL (ORAL USE) PO PRN ×2 (13:58→14:41)
[2017-11-22] MEDS: VANCOMYCIN 1,750 MG in SODIUM CHLORIDE 0.9% 250 ML IVPB SCH (14:05)
--- NOTE | 2017-11-22 14:13 | P.PN ---
Subjective Progress Note Date: 11/22/17 Principal diagnosis: Liver mass A 72-year-old male patient came into the hospital because of some cough and congestion and increased shortness of breath. The patient apparently developed some cold chills approximately 2 days ago. Subsequently he started feeling sick and later on he became more short of breath as the patient had cough and congestion of the chest and he was concern for pneumonia. For that reason he came into the hospital for further evaluation. He is a lifetime nonsmoker. No pleurisy. No hemoptysis. No recurrent pneumonias. No history of alcoholism. No history of any chronic lung disease or disorder. The patient was found to have a white cell count of 18.7 at time of admission and the LFTs were quite abnormal with elevation and ALP and AST and mild elevation of the alkaline phosphatase. Based on that a CAT scan of the abdomen was done and showed abnormal appearance of the liver with a large 10 cm x 8 cm mass in the posterior dissector of the right lower lobe of the liver and this finding was suspicious for malignancy. The gallbladder and ducts are within normal limits. The patient had multiple gallstones that appears to be around 67 mm in size. There was no evidence of any anti-or extrahepatic ductal dilatation. Pancreas was within normal limits. Lung bases showed some pleural thickening otherwise within normal limits. Elevation of the right hemidiaphragm was noted and this was present on previous CAT scans. Note that the patient's EGD from October 2017 showed schatzki's ring and there was erosive gastritis and moderate size hiatal hernia and hiatal hernia was also seen in the CAT scan of the abdomen. The patient also had a colonoscopy in 2014 and it showed no acute abnormalities. No reported history of abdominal pain. No nausea. No vomiting. No diarrhea. No fever. No chills. He is known to have obstructive sleep apnea using and he was using his CPAP on outpatient basis. No other history of malignancy. The patient is seen again today 11/18/2017 in follow-up on the regular medical floor. He remains awake and alert in no acute distress. He states his breathing is easier today as compared to yesterday. Computed tomography scan of the chest ruled out pulmonary embolism. There is some new small bilateral pleural effusions suggestive of fluid overload state. His current receiving IV Lasix 20 mg daily. Still requiring 7 L high flow nasal cannula to maintain O2 saturations in the low 90s. White count 21. Hemoglobin 13.6. Creatinine 0.80. AST 134, ALT 175. Total bilirubin 2.1, calcium 8.2. AFP less than 1.3. CEA 1.2. GI services and oncology on the case as well. On 11/21/2017, this patient got moved to the intensive care unit and the patient is being seen in follow-up. I got a phone call yesterday that the patient was becoming progressively more hypoxic and tachypneic and for that reason I put the patient on high flow oxygen at 8 L/m nasal cannula and I moved into the intensive care unit. A stat blood gases was done and the patient was found to have a mild component of respiratory alkalosis. The pH was at 7.51 with a pCO2 of 33. The patient was on 8 L of oxygen by nasal cannula and the pulse ox was 95% with a oxygen level of 68. A chest x-ray was done and showed a chronic elevation of the right hemidiaphragm and left basilar infiltration. The patient got moved to the intensive care unit and he is being monitored. Overnight he did very well. This morning he is very comfortable and Dr. levels are stable and FiO2 has been weaned down to 6 L of oxygen nasal cannula. His blood cultures are positive for gram-positive cocci in chains. Awaiting further cultures and sensitivities. The patient had 2 [id number] blood cultures that were positive. In addition, the liver abscess was drained and the cultures from the fluid is still pending for now. This morning, the liver drain has put out approximately 70-80 mL of dark red exudative fluid. The hemoglobin is at 13.6. The white cell count remains elevated at 23.4. The patient is producing adequate amount of urine output. The electrodes are all within normal limits, and the patient's creatinine is up to 1.2. Antibiotic coverage remains a combination of vancomycin, Zosyn and Flagyl. ID is on the case. As mentioned earlier, a dedicated CAT scan of the abdomen showed a liver lesion centrally cystic and multiloculated with surrounding rim of enhancement and edema. In addition, smaller cystic intrahepatic lesions are seen inferiorly and the findings were consistent and concerning of hepatic abscesses although the possibility of necrotic metastases cannot be completely excluded. Fluid was sent also for cytology and the results are still pending for now. Patient is seen again today 11/22/2017 on the selective care unit. He is awake and alert in no acute distress. He is sitting up in a chair at the bedside. He denies any worsening shortness of breath, cough or congestion. His lungs are clear. Diminished. He is maintaining O2 saturations in the 90s on 4 L high flow nasal cannula. His chest x-ray reveals bilateral subsegmental consolidation and small effusions which are stable compared to previous. White count 20.3. Creatinine 1.25. ALT 73. Alk phos 240. Pathology from the liver biopsy is still pending. Follow up blood cultures reveal no growth to date. Objective - Vital Signs Vital signs: Vital Signs Temp 96.4 F L 11/22/17 11:18 Pulse 75 11/22/17 13:33 Resp 18 11/22/17 11:20 BP 108/60 11/22/17 11:18 Pulse Ox 95 11/22/17 11:18 Intake & Output 11/21/17 11/22/17 11/22/17 18:59 06:59 18:59 Intake Total 140 450 960 Output Total 927 537 2720 Balance -610 -110 -315 Weight 102.2 kg Intake: IV 140 Sodium Chloride 0.9% 1, 140 000 ml @ 20 mls/hr IV . Q24H MARIA ISABEL Rx#:[id number] Intake, IV Titration 250 Amount Vancomycin 1,750 mg In 250 Sodium Chloride 0.9% 250 ml @ 125 mls/hr IVPB Q12HR@0600,1800 MARIA ISABEL Rx#: [id number] Oral 200 960 Output: Drainage 100 10 Right Lateral Abdomen 100 10 Urine 901 546 5050 Other: Voiding Method Toilet Toilet Urinal Urinal Urinal # Voids 1 2 # Bowel Movements 0 - Exam Gen. appearance the patient is calm comfortable likely distress Head exam was generally normal. There was no scleral icterus or corneal arcus. Mucous membranes were moist. Neck was supple and without jugular venous distension, thyromegaly, or carotid bruits. Carotids were easily palpable bilaterally. There was no adenopathy. Lungs sounds are diminished bilaterally especially in the right lung base. No wheezes or rhonchi. Minimal crackles in the lung bases bilaterally. Cardiac exam revealed the PMI to be normally situated and sized. The rhythm was regular and no extrasystoles were noted during several minutes of auscultation. The first and second heart sounds were normal and physiologic splitting of the second heart sound was noted. There were no murmurs, rubs, clicks, or gallops. Abdominal exam revealed normal bowel sounds. The abdomen was soft, non-tender, and without masses, organomegaly, or appreciable enlargement of the abdominal aorta. Examination of the extremities revealed easily palpable radial, femoral and pedal pulses. There was no cyanosis, clubbing or edema. Examination of the skin revealed no evidence of significant rashes, suspicious appearing nevi or other concerning lesions. Neurologic the patient is awake and alert and there is no focal neurological deficit. - Labs CBC & Chem 7: 11/22/17 06:04 11/22/17 06:04 Labs: Abnormal Lab Results - Last 24 Hours (Table) 11/21/17 11/21/17 11/22/17 Range/Units 17:09 20:29 06:04 WBC 20.3 H (3.8-10.6) k/uL Hgb 12.9 L (13.0-17.5) gm/dL Plt Count 620 H (150-450) k/uL Neutrophils # 16.2 H (1.3-7.7) k/uL BUN (9-20) mg/dL Glucose (74-99) mg/dL POC Glucose (mg/dL) 112 H 137 H (75-99) mg/dL ALT (21-72) U/L Alkaline Phosphatase (38-126) U/L Total Protein (6.3-8.2) g/dL Albumin (3.5-5.0) g/dL 11/22/17 11/22/17 Range/Units 06:04 11:36 WBC (3.8-10.6) k/uL Hgb (13.0-17.5) gm/dL Plt Count (150-450) k/uL Neutrophils # (1.3-7.7) k/uL BUN 21 H (9-20) mg/dL Glucose 103 H (74-99) mg/dL POC Glucose (mg/dL) 114 H (75-99) mg/dL ALT 73 H (21-72) U/L Alkaline Phosphatase 240 H (38-126) U/L Total Protein 5.2 L (6.3-8.2) g/dL Albumin 2.5 L (3.5-5.0) g/dL Microbiology - Last 24 Hours (Table) 11/19/17 12:45 Gram Stain - Preliminary Aspirate Body Fluid Culture - Preliminary 11/20/17 15:19 Blood Culture - Preliminary Blood No Growth after 24 hours 11/19/17 12:45 Anaerobic Culture - Preliminary Aspirate 11/16/17 01:50 Blood Culture Gram Stain - Final Blood Blood Culture - Final Anaerobic Gram Positive Cocci Assessment and Plan Assessment: Assessment 1 1 liver mass on that investigation. The liver mass has been centrally cystic yet has a rim with increased edema and seems to multivessel stated in addition to some satellite smaller lesions. Very highly suspicious for liver abscesses special that the patient has white cell count and is acting septic in addition to a positive blood cultures 2 indicating gram-positive cocci. Underlying metastasis it liver or primary liver malignancy cannot be completely excluded. The tumor markers of been negative. Fluid cytology still pending for now. Fluid cultures also pending for now. Blood cultures positive for gram-positive cocci and the patient is on the combination of Zosyn and vancomycin and Flagyl. ID is on the case. Follow-up blood cultures are revealing no growth to date. 2 chronic right hemidiaphragmatic elevation 3 small bilateral pleural effusions 4 acute bronchitis 5 abnormalities in LFTs secondary to above 6 psoriasis 7 moderate-sized hiatal hernia 8 BPH 9 hypothyroidism 10 hyperlipidemia 11 chronic back pain with spinal stenosis Plan: The patient was seen and evaluated by Dr. Snyder. Chest x-ray and labs were reviewed. There are small bilateral pleural effusions. He remains on diuretics. He is currently maintaining good O2 saturations in the 90s on 4 L high flow nasal cannula. He has been seen and evaluated by ID who feels the leukocytosis, fever and rigors may be related to an infectious process secondary to the liver mass and suspected malignancy. He is currently on vancomycin, Zosyn. Pathology from liver biopsy is still pending. We will continue to follow and make further recommendations based on his clinical status. I, the cosigning physician, performed a history & physical examination of the patient. Lungs sounds with faint crackles in the bilateral posterior bases. Maintaining good O2 saturations in the 90s on 4L high flow nasal cannula. I discussed the assessment and plan of care with my nurse practitioner, Bridgett Demarco. I attest to the above note as dictated by her.
[2017-11-22 14:14] VITALS: BMI 34.2
--- NOTE | 2017-11-22 15:52 | CT ---
EXAMINATION TYPE: CT abdomen pelvis wo con DATE OF EXAM: 11/22/2017 COMPARISON: 11/19/2017 HISTORY: Patient complains of RUQ pain. CT DLP: 1231 mGycm Automated exposure control for dose reduction was used. TECHNIQUE: Helical acquisition of images was performed from the lung bases through the pelvis. FINDINGS: LUNG BASES: Bilateral lower lobe consolidation and small pleural effusions are noted.. LIVER/GB: Gallstones noted. Drainage catheter seen within a hepatic suspected abscess which appears t o be reduced in size but remains multiloculated and present. PANCREAS: No significant abnormality is seen. SPLEEN: No significant abnormality is seen. ADRENALS: No significant abnormality is seen. KIDNEYS: No significant abnormality is seen. ADENOPATHY: None visualized. OSSEOUS STRUCTURES: Hypertrophic and degenerative change of the spine.. BOWEL: Gas pattern is nonspecific. There is a hiatal hernia. Diverticulosis of the colon noted. OTHER: Prostate gland is prominent. Atherosclerotic change aorta. Fat-containing inguinal hernias abdon aterally. IMPRESSION: 1. Drainage catheter within the liver is noted. The largest pocket appears to be noticeably reduced i n size. However, As noted on the previous dictation there are multiple locules of additional abscess seen which may not communicate with the largest pocket. 2. Cholelithiasis. 3. Diverticulosis. 4. Bilateral pleural effusion and small pericardial effusion with basilar consolidation.
[2017-11-22 16:36] LABS: Glucose,Whole Blood 135 mg/dL (75-99)
[2017-11-22] MEDS: SODIUM CHLORIDE 0.9% 1,000 ML IV SCH ×2 (17:30→17:31)
[2017-11-22] MEDS: DOXAZOSIN 4 MG TAB PO SCH (19:42)
[2017-11-22 20:51] LABS: Glucose,Whole Blood 138 mg/dL (75-99)
--- NOTE | 2017-11-22 23:12 | PN ---
PROGRESS NOTE DATE OF SERVICE: 11/22/2017 REASON FOR FOLLOWUP: Liver abscess. INTERVAL HISTORY: The patient is afebrile. He seems to be breathing more comfortably. The patient denies having any chest pain. Very minimal cough which is dry in nature. The patient denies having abdominal pain. No nausea, vomiting or diarrhea. Overall drainage in the drainage catheter has decreased. PHYSICAL EXAMINATION: Blood pressure 107/71 with a pulse of 99, temperature 99.2. He is 97% on 4 L nasal cannula. General description is an elderly male up in the chair in no distress. RESPIRATORY SYSTEM: Unlabored breathing with decreased breath sounds in the bases. No wheeze. HEART: S1, S2. Regular rate and rhythm. ABDOMEN: Soft. No tenderness. EXTREMITIES: No edema of the feet. LABS: Hemoglobin is 12.9, white count 20.3, BUN of 21, creatinine 1.25. Cultures continue to be pending. He did have a CT of abdomen and pelvis which did show a liver abscess but decreased in size but multi-loculated. DIAGNOSTIC IMPRESSION AND PLAN: Patient with liver abscess, status post CT-guided drainage. In view of the multi- loculated nature, he needs to have surgical drainage of the same, for which Surgery should be consulted. The patient is on Unasyn and vancomycin. That will be continued. On Flagyl. His was present at bedside. Her questions were answered. MMODL / IJN: [id number] /
[2017-11-23] MEDS: VANCOMYCIN 1,750 MG in SODIUM CHLORIDE 0.9% 250 ML IVPB SCH ×2 (04:05→20:42)
--- NOTE | 2017-11-23 05:45 | PN ---
PROGRESS NOTE DATE OF SERVICE: 11/22/2017 This 72-year-old gentleman admitted with hepatic abscess possibly anaerobic drainage. The patient also had pneumonia, respiratory difficulties and pleural effusion on the right side as well. The patient was monitored in ICU. Patient monitored in the telemetry unit at this time. The repeat CT scan done today showed largest pocket appears to be noticeably reduced, but multiloculated nature of the abscess noted along with cholelithiasis and bilateral pleural effusion also. PAST MEDICAL HISTORY: Reviewed. REVIEW OF SYSTEMS: CARDIOVASCULAR SYSTEM: No angina. RESPIRATORY SYSTEM: As mentioned earlier. GI: As mentioned earlier. : No dysuria. NERVOUS SYSTEM: No numbness or weakness. CURRENT MEDICATIONS: Current medications are reviewed, include: 1. DuoNeb q.i.d. and p.r.n. 2. Unasyn 3 grams q.6. 3. Os-Naveen with vitamin D. 4. Cardura. 5. Proscar 5 mg daily. 6. Lasix. 7. Heparin 5000 subcutaneously b.i.d. 8. NovoLog. 9. Synthroid 25 mcg. 10.Flagyl. 11.Ditropan. 12.Ultram. 13.Vancomycin. Cultures are showing anaerobic gram positive. PHYSICAL EXAMINATION: The patient is alert and oriented x3. Pulse 88, blood pressure 114/61, respirations 17, temperature 97.6, pulse ox 93% on CPAP. HEENT: Conjunctivae normal. Oral mucosa moist. NECK: No jugular venous distention. No carotid bruit. No lymph node enlargement. CARDIOVASCULAR: S1 and S2 muffled. RESPIRATORY: Breath sounds diminished at the bases. A few scattered rhonchi and crackles. ABDOMEN: Soft, obese, nontender. No mass palpable. No guarding. No rigidity. LEGS: No edema, no swelling. NERVOUS SYSTEM: Higher function as mentioned. Moves all 4 limbs. No focal deficits. LYMPHATICS: No lymphadenopathy of the neck, axillae or groin. SKIN: No ulcer, rash or bleeding. LABS: WBC 20.3, hemoglobin 12.9. ASSESSMENT: 1. Acute hepatic abscess, possible anaerobic multiloculated, status post CT-guided drainage with sepsis, present on admission. 2. Acute hypoxic respiratory failure, multifactorial. 3. Possible right lower lobe pneumonia with effusion. 4. Increased AST, ALT, bilirubin, possibly secondary to hepatitis. 5. Hyponatremia. 6. Increased WBC. 7. Degenerative joint disease. 8. History of hyperlipidemia. 9. History of psoriasis. 10.History of bilateral carpal tunnel syndrome. 11.History of degenerative joint disease. RECOMMENDATIONS AND DISCUSSION: Recommend to continue current medication and symptomatic treatment. Otherwise, closely follow with Dr. Snyder and Dr. Art. Continue with broad-spectrum IV antibiotics. Cultures as noted. Guarded prognosis. Further recommendations to follow. MMODL / IJN: [id number] /
[2017-11-23] MEDS: AMPICILLIN-SULBACTAM 3 GM in SODIUM CHLORIDE 0.9% 100 ML IVPB SCH ×3 (06:11→17:49)
[2017-11-23 06:18] LABS: Glucose,Whole Blood 107 mg/dL (75-99)
[2017-11-23 06:25] LABS: Basophils # (A) 0.1 k/uL (0-0.2); Basophils % (A) 1 %; Eosinophils # (A) 0.4 k/uL (0-0.7); Eosinophils % (A) 2 %; HCT 39.2 % (39.0-53.0); HGB 12.5 gm/dL (13.0-17.5); Lymphocytes % (A) 12 %; MCH 28.7 pg (25.0-35.0); MCHC 31.9 g/dL (31.0-37.0); MCV 89.9 fL (80.0-100.0); Mean Platelet Volume 8.5; Monocytes # (A) 0.6 k/uL (0-1.0); Monocytes % (A) 3 %; Neutrophils # (A) 13.6 k/uL (1.3-7.7); Neutrophils % (A) 81 %; Platelet Count 602 k/uL (150-450); RBC 4.36 m/uL (4.30-5.90); RDW 14.4 % (11.5-15.5); WBC 16.8 k/uL (3.8-10.6)
[2017-11-23 06:29] LABS: Calcium 8.7 mg/dL (8.4-10.2); Potassium 4.4 mmol/L (3.5-5.1)
[2017-11-23] MEDS: traMADol 50 MG TAB PO PRN ×3 (07:03→21:25)
[2017-11-23] MEDS: PANTOPRAZOLE 40 MG TABLET PO SCH (07:03)
[2017-11-23] MEDS: LEVOTHYROXINE 25 MCG TAB PO SCH (07:09)
[2017-11-23] MEDS: INSULIN ASPART 100 UNIT/ML 1 ML 10 ML VIAL SQ SCH ×4 (07:10→21:26)
[2017-11-23] MEDS: IPRATROPIUM-ALBUTEROL 3 ML NEB INHALATION SCH ×3 (08:19→19:48)
[2017-11-23] MEDS: OXYBUTYNIN 10 MG TAB.ER.24 PO SCH (08:43)
[2017-11-23] MEDS: metroNIDAZOLE 500 MG TAB PO SCH ×3 (08:43→21:25)
[2017-11-23] MEDS: CHOLECALCIFEROL 1,000 UNIT TAB PO SCH (08:44)
[2017-11-23] MEDS: FINASTERIDE 5 MG TAB PO SCH (08:44)
[2017-11-23] MEDS: CALCIUM CARB-VIT D 500MG-200UN 1 EACH TAB PO SCH (08:44)
[2017-11-23] MEDS: FUROSEMIDE 10 MG/ML 2 ML VIAL IV SCH (08:44)
[2017-11-23] MEDS: HEPARIN SODIUM,PORCINE 5,000 UNIT/ML 1 ML VIAL SQ SCH ×2 (08:44→21:25)
[2017-11-23] MEDS: MULTIVITAMINS, THERA 1 EACH TAB PO SCH (11:20)
[2017-11-23 11:41] LABS: Glucose,Whole Blood 100 mg/dL (75-99)
--- NOTE | 2017-11-23 12:56 | P.PN ---
Subjective Progress Note Date: 11/23/17 Principal diagnosis: Liver mass A 72-year-old male patient came into the hospital because of some cough and congestion and increased shortness of breath. The patient apparently developed some cold chills approximately 2 days ago. Subsequently he started feeling sick and later on he became more short of breath as the patient had cough and congestion of the chest and he was concern for pneumonia. For that reason he came into the hospital for further evaluation. He is a lifetime nonsmoker. No pleurisy. No hemoptysis. No recurrent pneumonias. No history of alcoholism. No history of any chronic lung disease or disorder. The patient was found to have a white cell count of 18.7 at time of admission and the LFTs were quite abnormal with elevation and ALP and AST and mild elevation of the alkaline phosphatase. Based on that a CAT scan of the abdomen was done and showed abnormal appearance of the liver with a large 10 cm x 8 cm mass in the posterior dissector of the right lower lobe of the liver and this finding was suspicious for malignancy. The gallbladder and ducts are within normal limits. The patient had multiple gallstones that appears to be around 67 mm in size. There was no evidence of any anti-or extrahepatic ductal dilatation. Pancreas was within normal limits. Lung bases showed some pleural thickening otherwise within normal limits. Elevation of the right hemidiaphragm was noted and this was present on previous CAT scans. Note that the patient's EGD from October 2017 showed schatzki's ring and there was erosive gastritis and moderate size hiatal hernia and hiatal hernia was also seen in the CAT scan of the abdomen. The patient also had a colonoscopy in 2014 and it showed no acute abnormalities. No reported history of abdominal pain. No nausea. No vomiting. No diarrhea. No fever. No chills. He is known to have obstructive sleep apnea using and he was using his CPAP on outpatient basis. No other history of malignancy. The patient is seen again today 11/18/2017 in follow-up on the regular medical floor. He remains awake and alert in no acute distress. He states his breathing is easier today as compared to yesterday. Computed tomography scan of the chest ruled out pulmonary embolism. There is some new small bilateral pleural effusions suggestive of fluid overload state. His current receiving IV Lasix 20 mg daily. Still requiring 7 L high flow nasal cannula to maintain O2 saturations in the low 90s. White count 21. Hemoglobin 13.6. Creatinine 0.80. AST 134, ALT 175. Total bilirubin 2.1, calcium 8.2. AFP less than 1.3. CEA 1.2. GI services and oncology on the case as well. On 11/21/2017, this patient got moved to the intensive care unit and the patient is being seen in follow-up. I got a phone call yesterday that the patient was becoming progressively more hypoxic and tachypneic and for that reason I put the patient on high flow oxygen at 8 L/m nasal cannula and I moved into the intensive care unit. A stat blood gases was done and the patient was found to have a mild component of respiratory alkalosis. The pH was at 7.51 with a pCO2 of 33. The patient was on 8 L of oxygen by nasal cannula and the pulse ox was 95% with a oxygen level of 68. A chest x-ray was done and showed a chronic elevation of the right hemidiaphragm and left basilar infiltration. The patient got moved to the intensive care unit and he is being monitored. Overnight he did very well. This morning he is very comfortable and Dr. levels are stable and FiO2 has been weaned down to 6 L of oxygen nasal cannula. His blood cultures are positive for gram-positive cocci in chains. Awaiting further cultures and sensitivities. The patient had 2 [id number] blood cultures that were positive. In addition, the liver abscess was drained and the cultures from the fluid is still pending for now. This morning, the liver drain has put out approximately 70-80 mL of dark red exudative fluid. The hemoglobin is at 13.6. The white cell count remains elevated at 23.4. The patient is producing adequate amount of urine output. The electrodes are all within normal limits, and the patient's creatinine is up to 1.2. Antibiotic coverage remains a combination of vancomycin, Zosyn and Flagyl. ID is on the case. As mentioned earlier, a dedicated CAT scan of the abdomen showed a liver lesion centrally cystic and multiloculated with surrounding rim of enhancement and edema. In addition, smaller cystic intrahepatic lesions are seen inferiorly and the findings were consistent and concerning of hepatic abscesses although the possibility of necrotic metastases cannot be completely excluded. Fluid was sent also for cytology and the results are still pending for now. Patient is seen again today 11/22/2017 on the selective care unit. He is awake and alert in no acute distress. He is sitting up in a chair at the bedside. He denies any worsening shortness of breath, cough or congestion. His lungs are clear. Diminished. He is maintaining O2 saturations in the 90s on 4 L high flow nasal cannula. His chest x-ray reveals bilateral subsegmental consolidation and small effusions which are stable compared to previous. White count 20.3. Creatinine 1.25. ALT 73. Alk phos 240. Pathology from the liver biopsy is still pending. Follow up blood cultures reveal no growth to date. The patient is seen again today 11/23/2017 in follow-up on the selective care unit. He is currently sitting up in a chair at the bedside. He is awake and alert in no acute distress. He is breathing easier today as compared to yesterday. He is down to 2 L/m per nasal cannula. The pathology of his liver biopsy was negative for malignancy. Positive for abscess. Follow-up computed tomography scan revealed with the drainage catheter in place largest pocket appears to be noticeably reduced in size. However there are multiple locules of additional abscess which may not communicate to the largest pocket. Surgical consultation was placed. Objective - Vital Signs Vital signs: Vital Signs Temp 98.6 F 11/23/17 08:00 Pulse 78 11/23/17 08:31 Resp 16 11/23/17 08:20 BP 116/73 11/23/17 08:00 Pulse Ox 98 11/23/17 08:20 Intake & Output 11/22/17 11/23/17 11/23/17 18:59 06:59 18:59 Intake Total 1200 500 120 Output Total 1895 400 0 Balance -695 100 120 Weight 102.2 kg 102.9 kg Intake: Intake, IV Titration 250 Amount Vancomycin 1,750 mg In 250 Sodium Chloride 0.9% 250 ml @ 125 mls/hr IVPB Q16H [facility] Rx#:[id number] Oral 1200 250 120 Output: Drainage 20 0 0 Right Lateral Abdomen 20 0 0 Urine 1875 400 Other: Voiding Method Urinal Urinal Urinal # Voids 1 1 # Bowel Movements 0 0 - Exam Gen. appearance the patient is calm comfortable likely distress Head exam was generally normal. There was no scleral icterus or corneal arcus. Mucous membranes were moist. Neck was supple and without jugular venous distension, thyromegaly, or carotid bruits. Carotids were easily palpable bilaterally. There was no adenopathy. Lungs sounds are diminished bilaterally especially in the right lung base. No wheezes or rhonchi. Minimal crackles in the lung bases bilaterally. Cardiac exam revealed the PMI to be normally situated and sized. The rhythm was regular and no extrasystoles were noted during several minutes of auscultation. The first and second heart sounds were normal and physiologic splitting of the second heart sound was noted. There were no murmurs, rubs, clicks, or gallops. Abdominal exam revealed normal bowel sounds. The abdomen was soft, non-tender. Drainage tube from the liver remains in place. Serosanguineous fluid noted. Examination of the extremities revealed easily palpable radial, femoral and pedal pulses. There was no cyanosis, clubbing or edema. Examination of the skin revealed no evidence of significant rashes, suspicious appearing nevi or other concerning lesions. Neurologic the patient is awake and alert and there is no focal neurological deficit. - Labs CBC & Chem 7: 11/23/17 05:24 11/23/17 05:24 Labs: Abnormal Lab Results - Last 24 Hours (Table) 11/22/17 11/22/17 11/23/17 Range/Units 16:34 20:49 05:24 WBC 16.8 H (3.8-10.6) k/uL Hgb 12.5 L (13.0-17.5) gm/dL Plt Count 602 H (150-450) k/uL Neutrophils # 13.6 H (1.3-7.7) k/uL Glucose (74-99) mg/dL POC Glucose (mg/dL) 135 H 138 H (75-99) mg/dL 11/23/17 11/23/17 11/23/17 Range/Units 05:24 06:16 11:40 WBC (3.8-10.6) k/uL Hgb (13.0-17.5) gm/dL Plt Count (150-450) k/uL Neutrophils # (1.3-7.7) k/uL Glucose 109 H (74-99) mg/dL POC Glucose (mg/dL) 107 H 100 H (75-99) mg/dL Microbiology - Last 24 Hours (Table) 11/19/17 12:45 Anaerobic Culture - Final Aspirate 11/19/17 12:45 Gram Stain - Final Aspirate Body Fluid Culture - Final 11/20/17 15:19 Blood Culture - Preliminary Blood No Growth after 48 hours Assessment and Plan Assessment: Assessment 1 1 liver mass on that investigation. The liver mass has been centrally cystic yet has a rim with increased edema and seems to multivessel stated in addition to some satellite smaller lesions. Very highly suspicious for liver abscesses special that the patient has white cell count and is acting septic in addition to a positive blood cultures 2 indicating gram-positive cocci. Pathology. Rule out malignancy. Multiple loculated abscesses remain in rate most recent CAT scan. The patient is on the combination of Unasyn and vancomycin and Flagyl. ID is on the case. Follow-up blood cultures are revealing no growth to date. 2 chronic right hemidiaphragmatic elevation 3 small bilateral pleural effusions 4 acute bronchitis 5 abnormalities in LFTs secondary to above 6 psoriasis 7 moderate-sized hiatal hernia 8 BPH 9 hypothyroidism 10 hyperlipidemia 11 chronic back pain with spinal stenosis Plan: The patient was seen and evaluated by Dr. Snyder. He is improved from the pulmonary standpoint. Down to 2 L/m per nasal cannula and maintaining O2 saturations in the 90s. Repeat computed tomography scan of the abdomen was noted. The drainage tube from the liver main abscess continues to drain. However there are multiple loculated pockets that might not communicate to the main pocket. Surgical services has been consulted. He is currently on vancomycin, Unasyn, Flagyl. Pathology from liver biopsy ruled out malignancy. We will continue to follow and make further recommendations based on his clinical status. I, the cosigning physician, performed a history & physical examination of the patient. Lungs sounds with faint crackles in the bilateral posterior bases. Maintaining good O2 saturations in the 90s on 2L high flow nasal cannula. I discussed the assessment and plan of care with my nurse practitioner, Bridgett Demarco. I attest to the above note as dictated by her.
--- NOTE | 2017-11-23 14:28 | P.PN ---
Subjective Patient was admitted secondary to sepsis blood culture showed anaerobic gram- positive bacteria and patient is on Unasyn and vancomycin and Flagyl at this time. Patient had a biliary drain for liver abscess. Discussed with the infectious disease the requiring surgical consultation. Surgery was consulted. Patient does have hypoxic respiratory failure secondary to pulmonary edema following bilateral pleural effusions ejection fraction of around 45%. Patient is on IV Lasix which will be continued. Patient will be transferred to medical and surgical floor. Constitutional: Denied any fatigue denied any fever. Cardio vascular: denied any chest pain, palpitations Gastrointestinal denied any nausea vomiting Pulmonary: Denied any shortness of breath cough Neurologic denied any new focal deficits Objective - Vital Signs Vital signs: Vital Signs Temp 97.5 F L 11/23/17 12:00 Pulse 82 11/23/17 13:32 Resp 16 11/23/17 13:32 BP 113/75 11/23/17 12:00 Pulse Ox 95 11/23/17 12:00 Intake & Output 11/22/17 11/23/17 11/23/17 18:59 06:59 18:59 Intake Total 1200 500 240 Output Total 1895 400 200 Balance -695 100 40 Weight 102.2 kg 102.9 kg Intake: Intake, IV Titration 250 Amount Vancomycin 1,750 mg In 250 Sodium Chloride 0.9% 250 ml @ 125 mls/hr IVPB Q16H [facility] Rx#:[id number] Oral 1200 250 240 Output: Drainage 20 0 0 Right Lateral Abdomen 20 0 0 Urine 1875 400 200 Other: Voiding Method Urinal Urinal Urinal # Voids 1 1 1 # Bowel Movements 0 0 0 - Exam PHYSICAL EXAMINATION: GENERAL: The patient is alert and oriented x3, not in any acute distress. Well developed, well nourished. HEENT: Pupils are round and equally reacting to light. EOMI. No scleral icterus. No conjunctival pallor. Normocephalic, atraumatic. No pharyngeal erythema. No thyromegaly. CARDIOVASCULAR: S1 and S2 present. No murmurs, rubs, or gallops. PULMONARY: Chest is clear to auscultation, no wheezing or crackles. ABDOMEN: Soft, nontender, biliary drain in place which is draining at this time , mostly bilious fluid without any purulent discharge. MUSCULOSKELETAL: No joint swelling or deformity. EXTREMITIES: No cyanosis, clubbing, or pedal edema. NEUROLOGICAL: Gross neurological examination did not reveal any focal deficits. SKIN: No rashes. - Labs CBC & Chem 7: 11/23/17 05:24 11/23/17 05:24 Labs: Abnormal Lab Results - Last 24 Hours (Table) 11/22/17 11/22/17 11/23/17 Range/Units 16:34 20:49 05:24 WBC 16.8 H (3.8-10.6) k/uL Hgb 12.5 L (13.0-17.5) gm/dL Plt Count 602 H (150-450) k/uL Neutrophils # 13.6 H (1.3-7.7) k/uL Glucose (74-99) mg/dL POC Glucose (mg/dL) 135 H 138 H (75-99) mg/dL 11/23/17 11/23/17 11/23/17 Range/Units 05:24 06:16 11:40 WBC (3.8-10.6) k/uL Hgb (13.0-17.5) gm/dL Plt Count (150-450) k/uL Neutrophils # (1.3-7.7) k/uL Glucose 109 H (74-99) mg/dL POC Glucose (mg/dL) 107 H 100 H (75-99) mg/dL Microbiology - Last 24 Hours (Table) 11/19/17 12:45 Anaerobic Culture - Final Aspirate 11/19/17 12:45 Gram Stain - Final Aspirate Body Fluid Culture - Final 11/20/17 15:19 Blood Culture - Preliminary Blood No Growth after 48 hours Assessment and Plan Plan: -Sepsis and bacteremia secondary to liver abscess: Status post drain placement surgical evaluation as mentioned above patient is on vancomycin and Unasyn and Flagyl which will be continued -Acute hypoxic respiratory failure: Secondary to possible CHF exacerbation chronic systolic dysfunction with acute exacerbation there is a right chronic diaphragmatic elevation which is also contributing to her shortness of breath -Elevated LFTs secondary to liver abscess -Story assess -Benign prostatic hypertrophy next and-hypothyroidism next and-hyperlipidemia -Chronic low back pain with spinal stenosis For above-mentioned chronic medical problems patient will be continued on appropriate home medication surgical evaluation.
--- NOTE | 2017-11-23 15:43 | PN ---
PROGRESS NOTE DATE OF SERVICE: 11/23/2017. REASON FOR FOLLOWUP: Liver abscess. INTERVAL HISTORY: The patient is afebrile. He is breathing comfortably. Denies any chest pain. Occasional cough. No abdominal pain. No nausea, vomiting or any diarrhea. EXAMINATION: Blood pressure 113/75, pulse of 93, temperature 97.5. He is 95% on room air. General description is an elderly male up in the chair in no distress. RESPIRATORY SYSTEM: Unlabored breathing with decreased breath sounds in the bases. No wheeze. HEART: S1, S2. Regular rate and rhythm. ABDOMEN: Soft. No tenderness. EXTREMITIES: No edema of feet. LABS: Hemoglobin 12.5, white count 16.8, BUN of 18, creatinine is 1.10. The liver aspirate culture has been negative. Blood cultures anaerobic gram-positive cocci. DIAGNOSTIC IMPRESSION AND PLAN: Patient with liver abscess, multiloculated. Vascular Surgery consulted. Will wait for their recommendation. Keep the patient on Unasyn at this point. If MRSA, Vancomycin will be discontinued. Continue supportive care. Plan of care was discussed with the family as well as the attending physician. MMODL / IJN: [id number] /
[2017-11-23 16:46] LABS: Glucose,Whole Blood 131 mg/dL (75-99)
[2017-11-23 20:55] VITALS: RESP 18
[2017-11-23 20:58] LABS: Glucose,Whole Blood 117 mg/dL (75-99)
[2017-11-23] MEDS: DOXAZOSIN 4 MG TAB PO SCH (21:25)
[2017-11-24 06:01] LABS: Glucose,Whole Blood 106 mg/dL (75-99)
[2017-11-24] MEDS: INSULIN ASPART 100 UNIT/ML 1 ML 10 ML VIAL SQ SCH ×2 (06:20→12:15)
[2017-11-24] MEDS: PANTOPRAZOLE 40 MG TABLET PO SCH (06:36)
[2017-11-24] MEDS: LEVOTHYROXINE 25 MCG TAB PO SCH (06:36)
[2017-11-24] MEDS: AMPICILLIN-SULBACTAM 3 GM in SODIUM CHLORIDE 0.9% 100 ML IVPB SCH ×4 (06:36→12:27)
[2017-11-24 06:47] LABS: Albumin 2.5 g/dL (3.5-5.0); Calcium 8.3 mg/dL (8.4-10.2); Potassium 4.3 mmol/L (3.5-5.1); Total Bilirubin 0.9 mg/dL (0.2-1.3); Total Protein 5.3 g/dL (6.3-8.2)
[2017-11-24 06:55] LABS: HCT 38.4 % (39.0-53.0); HGB 12.7 gm/dL (13.0-17.5); Hypochromasia Slight; MCH 30.5 pg (25.0-35.0); MCHC 33.1 g/dL (31.0-37.0); MCV 92.2 fL (80.0-100.0); Mean Platelet Volume 8.8; Platelet Count 584 k/uL (150-450); RBC 4.17 m/uL (4.30-5.90); RDW 14.6 % (11.5-15.5); WBC 16.4 k/uL (3.8-10.6)
[2017-11-24] MEDS: IPRATROPIUM-ALBUTEROL 3 ML NEB INHALATION SCH ×2 (07:55→13:41)
[2017-11-24] MEDS: traMADol 50 MG TAB PO PRN (08:43)
[2017-11-24] MEDS: CHOLECALCIFEROL 1,000 UNIT TAB PO SCH (08:45)
[2017-11-24] MEDS: OXYBUTYNIN 10 MG TAB.ER.24 PO SCH (08:45)
[2017-11-24] MEDS: CALCIUM CARB-VIT D 500MG-200UN 1 EACH TAB PO SCH (08:46)
[2017-11-24] MEDS: FUROSEMIDE 10 MG/ML 2 ML VIAL IV SCH (08:46)
[2017-11-24] MEDS: metroNIDAZOLE 500 MG TAB PO SCH (08:46)
[2017-11-24] MEDS: HEPARIN SODIUM,PORCINE 5,000 UNIT/ML 1 ML VIAL SQ SCH (08:46)
[2017-11-24] MEDS: FINASTERIDE 5 MG TAB PO SCH (08:46)
[2017-11-24 08:58] VITALS: TEMP 97.8
--- NOTE | 2017-11-24 10:09 | P.PN ---
Subjective Progress Note Date: 11/24/17 Principal diagnosis: Liver mass A 72-year-old male patient came into the hospital because of some cough and congestion and increased shortness of breath. The patient apparently developed some cold chills approximately 2 days ago. Subsequently he started feeling sick and later on he became more short of breath as the patient had cough and congestion of the chest and he was concern for pneumonia. For that reason he came into the hospital for further evaluation. He is a lifetime nonsmoker. No pleurisy. No hemoptysis. No recurrent pneumonias. No history of alcoholism. No history of any chronic lung disease or disorder. The patient was found to have a white cell count of 18.7 at time of admission and the LFTs were quite abnormal with elevation and ALP and AST and mild elevation of the alkaline phosphatase. Based on that a CAT scan of the abdomen was done and showed abnormal appearance of the liver with a large 10 cm x 8 cm mass in the posterior dissector of the right lower lobe of the liver and this finding was suspicious for malignancy. The gallbladder and ducts are within normal limits. The patient had multiple gallstones that appears to be around 67 mm in size. There was no evidence of any anti-or extrahepatic ductal dilatation. Pancreas was within normal limits. Lung bases showed some pleural thickening otherwise within normal limits. Elevation of the right hemidiaphragm was noted and this was present on previous CAT scans. Note that the patient's EGD from October 2017 showed schatzki's ring and there was erosive gastritis and moderate size hiatal hernia and hiatal hernia was also seen in the CAT scan of the abdomen. The patient also had a colonoscopy in 2014 and it showed no acute abnormalities. No reported history of abdominal pain. No nausea. No vomiting. No diarrhea. No fever. No chills. He is known to have obstructive sleep apnea using and he was using his CPAP on outpatient basis. No other history of malignancy. The patient is seen again today 11/18/2017 in follow-up on the regular medical floor. He remains awake and alert in no acute distress. He states his breathing is easier today as compared to yesterday. Computed tomography scan of the chest ruled out pulmonary embolism. There is some new small bilateral pleural effusions suggestive of fluid overload state. His current receiving IV Lasix 20 mg daily. Still requiring 7 L high flow nasal cannula to maintain O2 saturations in the low 90s. White count 21. Hemoglobin 13.6. Creatinine 0.80. AST 134, ALT 175. Total bilirubin 2.1, calcium 8.2. AFP less than 1.3. CEA 1.2. GI services and oncology on the case as well. On 11/21/2017, this patient got moved to the intensive care unit and the patient is being seen in follow-up. I got a phone call yesterday that the patient was becoming progressively more hypoxic and tachypneic and for that reason I put the patient on high flow oxygen at 8 L/m nasal cannula and I moved into the intensive care unit. A stat blood gases was done and the patient was found to have a mild component of respiratory alkalosis. The pH was at 7.51 with a pCO2 of 33. The patient was on 8 L of oxygen by nasal cannula and the pulse ox was 95% with a oxygen level of 68. A chest x-ray was done and showed a chronic elevation of the right hemidiaphragm and left basilar infiltration. The patient got moved to the intensive care unit and he is being monitored. Overnight he did very well. This morning he is very comfortable and Dr. levels are stable and FiO2 has been weaned down to 6 L of oxygen nasal cannula. His blood cultures are positive for gram-positive cocci in chains. Awaiting further cultures and sensitivities. The patient had 2 [id number] blood cultures that were positive. In addition, the liver abscess was drained and the cultures from the fluid is still pending for now. This morning, the liver drain has put out approximately 70-80 mL of dark red exudative fluid. The hemoglobin is at 13.6. The white cell count remains elevated at 23.4. The patient is producing adequate amount of urine output. The electrodes are all within normal limits, and the patient's creatinine is up to 1.2. Antibiotic coverage remains a combination of vancomycin, Zosyn and Flagyl. ID is on the case. As mentioned earlier, a dedicated CAT scan of the abdomen showed a liver lesion centrally cystic and multiloculated with surrounding rim of enhancement and edema. In addition, smaller cystic intrahepatic lesions are seen inferiorly and the findings were consistent and concerning of hepatic abscesses although the possibility of necrotic metastases cannot be completely excluded. Fluid was sent also for cytology and the results are still pending for now. Patient is seen again today 11/22/2017 on the selective care unit. He is awake and alert in no acute distress. He is sitting up in a chair at the bedside. He denies any worsening shortness of breath, cough or congestion. His lungs are clear. Diminished. He is maintaining O2 saturations in the 90s on 4 L high flow nasal cannula. His chest x-ray reveals bilateral subsegmental consolidation and small effusions which are stable compared to previous. White count 20.3. Creatinine 1.25. ALT 73. Alk phos 240. Pathology from the liver biopsy is still pending. Follow up blood cultures reveal no growth to date. The patient is seen again today 11/23/2017 in follow-up on the selective care unit. He is currently sitting up in a chair at the bedside. He is awake and alert in no acute distress. He is breathing easier today as compared to yesterday. He is down to 2 L/m per nasal cannula. The pathology of his liver biopsy was negative for malignancy. Positive for abscess. Follow-up computed tomography scan revealed with the drainage catheter in place largest pocket appears to be noticeably reduced in size. However there are multiple locules of additional abscess which may not communicate to the largest pocket. Surgical consultation was placed. The patient is seen again today 11/24/2017 in follow-up on the selective care unit. He is awake and alert in no acute distress. He is sitting up in a chair at the bedside. He denies any worsening shortness of breath, cough or congestion. Continues to maintain good O2 saturations in the 90s on 2 L/m per nasal cannula. He remains on Unasyn and vancomycin. He has been afebrile. White count 16.4. Hemoglobin 12.7. Creatinine 0.9. He had been seen and evaluated by surgical services. They are recommending transfer to a tertiary care facility for possible laparoscopic procedure to clean out multiple liver abscesses. There is no drainage from the liver drainage tube today. Objective - Vital Signs Vital signs: Vital Signs Temp 97.8 F 11/24/17 08:00 Pulse 92 11/24/17 08:09 Resp 18 11/24/17 08:00 BP 106/69 11/24/17 08:00 Pulse Ox 92 L 11/24/17 08:00 Intake & Output 11/23/17 11/24/17 11/24/17 18:59 06:59 18:59 Intake Total 480 Output Total 850 435 Balance -370 -435 Weight 103.4 kg Intake: Oral 480 Output: Drainage 0 60 Right Lateral Abdomen 0 60 Urine 850 375 Other: Voiding Method Urinal Urinal # Voids 1 # Bowel Movements 0 - Exam Gen. appearance the patient is calm comfortable likely distress Head exam was generally normal. There was no scleral icterus or corneal arcus. Mucous membranes were moist. Neck was supple and without jugular venous distension, thyromegaly, or carotid bruits. Carotids were easily palpable bilaterally. There was no adenopathy. Lungs sounds are diminished bilaterally especially in the right lung base. No wheezes or rhonchi. Minimal crackles in the lung bases bilaterally. Cardiac exam revealed the PMI to be normally situated and sized. The rhythm was regular and no extrasystoles were noted during several minutes of auscultation. The first and second heart sounds were normal and physiologic splitting of the second heart sound was noted. There were no murmurs, rubs, clicks, or gallops. Abdominal exam revealed normal bowel sounds. The abdomen was soft, non-tender. Drainage tube from the liver remains in place. Minimal serosanguineous fluid noted. Examination of the extremities revealed easily palpable radial, femoral and pedal pulses. There was no cyanosis, clubbing or edema. Examination of the skin revealed no evidence of significant rashes, suspicious appearing nevi or other concerning lesions. Neurologic the patient is awake and alert and there is no focal neurological deficit. - Labs CBC & Chem 7: 11/24/17 06:00 11/24/17 06:00 Labs: Abnormal Lab Results - Last 24 Hours (Table) 11/23/17 11/23/17 11/23/17 Range/Units 11:40 16:45 20:56 WBC (3.8-10.6) k/uL RBC (4.30-5.90) m/uL Hgb (13.0-17.5) gm/dL Hct (39.0-53.0) % Plt Count (150-450) k/uL Glucose (74-99) mg/dL POC Glucose (mg/dL) 100 H 131 H 117 H (75-99) mg/dL Calcium (8.4-10.2) mg/dL Alkaline Phosphatase (38-126) U/L Total Protein (6.3-8.2) g/dL Albumin (3.5-5.0) g/dL 11/24/17 11/24/17 11/24/17 Range/Units 05:58 06:00 06:00 WBC 16.4 H (3.8-10.6) k/uL RBC 4.17 L (4.30-5.90) m/uL Hgb 12.7 L (13.0-17.5) gm/dL Hct 38.4 L (39.0-53.0) % Plt Count 584 H (150-450) k/uL Glucose 103 H (74-99) mg/dL POC Glucose (mg/dL) 106 H (75-99) mg/dL Calcium 8.3 L (8.4-10.2) mg/dL Alkaline Phosphatase 189 H (38-126) U/L Total Protein 5.3 L (6.3-8.2) g/dL Albumin 2.5 L (3.5-5.0) g/dL Microbiology - Last 24 Hours (Table) 11/20/17 15:19 Blood Culture - Preliminary Blood No Growth after 72 hours 11/19/17 12:45 Anaerobic Culture - Final Aspirate 11/19/17 12:45 Gram Stain - Final Aspirate Body Fluid Culture - Final Assessment and Plan Assessment: Assessment 1 1 liver mass on that investigation found to be liver abscesses Pathology ruled out malignancy. Multiple loculated abscesses remain in rate most recent CAT scan. The patient is on the combination of Unasyn and vancomycin and Flagyl. ID is on the case. Follow-up blood cultures are revealing no growth to date. 2 chronic right hemidiaphragmatic elevation 3 small bilateral pleural effusions 4 acute bronchitis 5 abnormalities in LFTs secondary to above 6 psoriasis 7 moderate-sized hiatal hernia 8 BPH 9 hypothyroidism 10 hyperlipidemia 11 chronic back pain with spinal stenosis Plan: The patient was seen and evaluated by Dr. Snyder. He is improved from the pulmonary standpoint. Down to 2 L/m per nasal cannula and maintaining O2 saturations in the 90s. Surgical services are not planning any intervention here. He may be transferred to tertiary care center for possible surgical drainage of the multiple liver abscesses. He is currently on vancomycin, Unasyn , Flagyl. Pathology from liver biopsy ruled out malignancy. We will continue to follow and make further recommendations based on his clinical status. I, the cosigning physician, performed a history & physical examination of the patient. Lungs sounds with faint crackles in the bilateral posterior bases. Maintaining good O2 saturations in the 90s on 2L high flow nasal cannula. I discussed the assessment and plan of care with my nurse practitioner, Bridgett Demarco. I attest to the above note as dictated by her.
--- NOTE | 2017-11-24 10:33 | P.GSCN ---
History of Present Illness Consult date: 11/24/17 History of present illness: 72-year-old male that has been admitted to the hospital for a little over one week with finding of liver abscess. Approximately 1 week ago a interventional radiology drain was placed into this liver abscess and has been draining since. The patient originally presented to the hospital secondary to fevers and chills. He denied any abdominal pain at that time. He also complained of shortness of breath at that time. On workup, he was found to be septic secondary to a liver abscess. He has been treated with IV antibiotics and drainage of the abscess site. On CT of the abdomen and pelvis that was performed yesterday to reevaluate the abscess site, the larger abscess is noted to be decreased in size however the multi-loculated areas are still noted to persist. The patient currently denies any abdominal pain. IV antibiotics are still running. He denies any recent febrile episodes. He denies any history of cholecystitis. He denies any recent abdominal pain at all. He states he is up-to -date with colonoscopy, his last colonoscopy was in 2014 and was noted to have diverticulosis and one rectal polyp. He has no additional complaints at this time. Review of Systems All systems: negative Past Medical History Past Medical History: GERD/Reflux, Hyperlipidemia, Osteoarthritis (OA), Prostate Disorder, Respiratory Disorder, Skin Disorder, Sleep Apnea/CPAP/BIPAP, Thyroid Disorder Additional Past Medical History / Comment(s): SAW DR. PETERSON 04/16/15-HAS LEAKY VALVE- USES C-PAP SET @ 12 & 5, PSORIASIS LOWER LEGS & UPPER ARMS, NECK AND BACK - USES AMONIUM LACTATE CREAM 12 % PRN, OA KNEES & HIPS History of Any Multi-Drug Resistant Organisms: None Reported Past Surgical History: Hernia Repair Additional Past Surgical History / Comment(s): HERNIA X 3 ( ONE UMBILICAL, ONE LT INGUINAL & ONE HIATAL HERNIA REPAIR), PAIN CLINIC- LAST TIME 04/08/15, COLONSCOPY, EGD, Past Anesthesia/Blood Transfusion Reactions: Motion Sickness Past Psychological History: No Psychological Hx Reported Smoking Status: Never smoker Past Alcohol Use History: Occasional Past Drug Use History: None Reported - Past Family History Father Family Medical History: Myocardial Infarction ([place]) Additional Family Medical History / Comment(s): collapsed lung when a younger man, 5 pack a day smoker Mother Family Medical History: Cancer Additional Family Medical History / Comment(s): breast cancer, lymph node to brain, Sister(s) Family Medical History: Neurologic Disorder Additional Family Medical History / Comment(s): M.S. Medications and Allergies Home Medications Medication Instructions Recorded Confirmed Type Aspirin 81 mg PO HS 04/03/14 11/16/17 History Doxazosin [Cardura] 4 mg PO HS 04/03/14 11/16/17 History Finasteride [Proscar] 5 mg PO QAM 04/03/14 11/16/17 History Naproxen Sodium 550 mg PO Q12HR PRN 04/03/14 11/16/17 History Simvastatin [Zocor] 40 mg PO HS 04/03/14 11/16/17 History Levothyroxine Sodium [Synthroid] 25 mcg PO QAM 01/21/15 11/16/17 History Calcium Carbonate/Vitamin D3 1 each PO DAILY 01/25/15 11/16/17 History [Calcium 600 + Vit D Tablet] Multivitamin [Men's Multi-Vitamin] 1 tab PO DAILY 01/25/15 11/16/17 History Krill Oil 1,000 mg PO DAILY 03/11/15 11/16/17 History Potassium Gluconate 595 mg PO DAILY 02/20/16 11/16/17 History Cholecalciferol [Vitamin D3] 5,000 unit PO DAILY 11/16/17 11/16/17 History Oxybutynin Chloride [Ditropan XL] 10 mg PO DAILY 11/16/17 11/16/17 History traMADol HCL [Ultram] 100 mg PO Q6HR PRN 11/16/17 11/16/17 History Allergies Allergy/AdvReac Type Severity Reaction Status Date / Time lentils Allergy HEADACHE Verified 11/16/17 07:43 Milk Containing Products Allergy HEADACHE Verified 11/16/17 07:43 [Dairy] soy Allergy HEADACHES Verified 11/16/17 07:43 tree nut [Nut] Allergy HEADACHES Verified 11/16/17 07:43 [place] Allergy SHORTNESS Uncoded 10/15/17 10:49 OF BREATH Surgical - Exam Osteopathic Statement: *. No significant issues noted on an osteopathic structural exam other than those noted in the History and Physical/Consult. Vital Signs Temp Pulse Resp BP Pulse Ox 102.1 F H 133 H 35 H 143/110 87 L 11/16/17 01:24 11/16/17 01:24 11/16/17 01:24 11/16/17 01:24 11/16/17 01:24 - General well nourished, no distress - Eyes normal ocular movement, no icteric - ENT normal mucosa, no hearing loss - Neck trachea midline - Respiratory No difficulty with respiration - Abdomen Soft, nontender, nondistended, no rebound, no guarding, interventional radiology drain in place - Neurologic normal sensation - Psychiatric oriented to time, oriented to person, oriented to place Results - Labs 11/24/17 06:00 11/24/17 06:00 Abnormal Lab Results - Last 24 Hours (Table) 11/23/17 11/23/17 11/23/17 Range/Units 11:40 16:45 20:56 WBC (3.8-10.6) k/uL RBC (4.30-5.90) m/uL Hgb (13.0-17.5) gm/dL Hct (39.0-53.0) % Plt Count (150-450) k/uL Glucose (74-99) mg/dL POC Glucose (mg/dL) 100 H 131 H 117 H (75-99) mg/dL Calcium (8.4-10.2) mg/dL Alkaline Phosphatase (38-126) U/L Total Protein (6.3-8.2) g/dL Albumin (3.5-5.0) g/dL 11/24/17 11/24/17 11/24/17 Range/Units 05:58 06:00 06:00 WBC 16.4 H (3.8-10.6) k/uL RBC 4.17 L (4.30-5.90) m/uL Hgb 12.7 L (13.0-17.5) gm/dL Hct 38.4 L (39.0-53.0) % Plt Count 584 H (150-450) k/uL Glucose 103 H (74-99) mg/dL POC Glucose (mg/dL) 106 H (75-99) mg/dL Calcium 8.3 L (8.4-10.2) mg/dL Alkaline Phosphatase 189 H (38-126) U/L Total Protein 5.3 L (6.3-8.2) g/dL Albumin 2.5 L (3.5-5.0) g/dL Microbiology - Last 24 Hours (Table) 11/20/17 15:19 Blood Culture - Preliminary Blood No Growth after 72 hours 11/19/17 12:45 Anaerobic Culture - Final Aspirate 11/19/17 12:45 Gram Stain - Final Aspirate Body Fluid Culture - Final Diabetes panel 11/24/17 Range/Units 06:00 Sodium 139 (137-145) mmol/L Potassium 4.3 (3.5-5.1) mmol/L Chloride 102 (98-107) mmol/L Carbon Dioxide 27 (22-30) mmol/L BUN 18 (9-20) mg/dL Creatinine 1.10 (0.66-1.25) mg/dL Glucose 103 H (74-99) mg/dL Calcium 8.3 L (8.4-10.2) mg/dL AST 33 (17-59) U/L ALT 49 (21-72) U/L Alkaline Phosphatase 189 H (38-126) U/L Total Protein 5.3 L (6.3-8.2) g/dL Albumin 2.5 L (3.5-5.0) g/dL Calcium panel 11/24/17 Range/Units 06:00 Calcium 8.3 L (8.4-10.2) mg/dL Albumin 2.5 L (3.5-5.0) g/dL Pituitary panel 11/24/17 Range/Units 06:00 Sodium 139 (137-145) mmol/L Potassium 4.3 (3.5-5.1) mmol/L Chloride 102 (98-107) mmol/L Carbon Dioxide 27 (22-30) mmol/L BUN 18 (9-20) mg/dL Creatinine 1.10 (0.66-1.25) mg/dL Glucose 103 H (74-99) mg/dL Calcium 8.3 L (8.4-10.2) mg/dL Adrenal panel 11/24/17 Range/Units 06:00 Sodium 139 (137-145) mmol/L Potassium 4.3 (3.5-5.1) mmol/L Chloride 102 (98-107) mmol/L Carbon Dioxide 27 (22-30) mmol/L BUN 18 (9-20) mg/dL Creatinine 1.10 (0.66-1.25) mg/dL Glucose 103 H (74-99) mg/dL Calcium 8.3 L (8.4-10.2) mg/dL Total Bilirubin 0.9 (0.2-1.3) mg/dL AST 33 (17-59) U/L ALT 49 (21-72) U/L Alkaline Phosphatase 189 H (38-126) U/L Total Protein 5.3 L (6.3-8.2) g/dL Albumin 2.5 L (3.5-5.0) g/dL - Imaging CT scan - abdomen: report reviewed, image reviewed (CT of the abdomen and pelvis was reviewed. There was a notable decrease in size from his previous CT scan of the larger abscess. The additional loculations were noted to's plan throughout the right lobe of the liver.) CT scan - pelvis: report reviewed, image reviewed Assessment and Plan (1) Liver mass Narrative/Plan: 72-year-old male with liver abscess - Continue to keep the IR drain in place - I reviewed the CT of the abdomen and pelvis in depth. There is notable activity with multi loculated areas within the right lobe of the liver. This spans throughout multiple quadrants of the liver. The IR drain seems to have helped with the larger abscess, however there is continuation of the smaller loculated areas. I do recommend continued IV antibiotics for these areas. It is not clear what the source of the hepatic abscess is. The patient has not complained of abdominal pain. He denies any history of diverticulitis or cholecystitis. - Due to an extended hospital stay with only mild resolution of the hepatic abscess, evaluation by a tertiary care facility with a hepatobiliary service should be considered. - Thank you for this consultation. I will continue to provide recommendations during the patient's admission. Current Visit: Yes Status: Acute Code(s): R16.0 - HEPATOMEGALY, NOT ELSEWHERE CLASSIFIED SNOMED Code(s): 874375169
[2017-11-24] MEDS ORDERED: VANCOMYCIN TROUGH DUE 1 EACH MISC MISCELLANE ONE (11:00)
[2017-11-24 11:32] LABS: Glucose,Whole Blood 95 mg/dL (75-99)
--- NOTE | 2017-11-24 11:32 | PN ---
PROGRESS NOTE DATE OF SERVICE: 11/24/2017. REASON FOR FOLLOWUP: Liver abscess. INTERVAL HISTORY: The patient is afebrile. Has been breathing comfortably. Denies having any chest pain. No cough. No abdominal pain. No nausea, vomiting, or any diarrhea. PHYSICAL EXAMINATION: On examination, blood pressure 106/69, pulse of 92, temperature 97.8. He is 92% on 2 L nasal cannula. General description is a middle-aged male up in the chair in no distress. RESPIRATORY SYSTEM: Unlabored breathing, clear to auscultation anteriorly. HEART: S1, S2, regular rate and rhythm. ABDOMEN: Soft, no tenderness. Drainage catheter currently with no output. LABS: Hemoglobin is 12.7, white count 16.4 with a BUN of 18, creatinine is 1.10. The liver aspirate culture has been negative. Blood culture with anaerobic gram-positive cocci. Unfortunately, micro has not been able to be identified. DIAGNOSTIC IMPRESSION AND PLAN: Patient with liver abscess, status post CT-guided drainage. In view of the multiloculated nature, it has to be drained surgically. Surgery has seen the patient and they think he may end up having extensive surgery, possible partial resection and hence, the patient to be transferred to tertiary care [facility], that will be arranged for the patient later today. We will keep the patient on Unasyn and Flagyl at this point until the patient is evaluated by ID service at that facility. Continue supportive care. Family was present at bedside. All their questions and concerns were answered. MMODL / IJN: [id number] /
[2017-11-24] MEDS: MULTIVITAMINS, THERA 1 EACH TAB PO SCH (12:26)
[2017-11-24 13:04] VITALS: BP 106/76
[2017-11-24 13:54] VITALS: PULSE 86
--- NOTE | 2017-11-24 14:23 | P.DS ---
Providers Date of admission: 11/16/17 06:40 Attending physician: Laura Purcell Consults: 11/16/17 18:13 Consult Physician Routine Consulting Provider: Raz Asencio Consult Reason/Comments: malignancy?? Do you want consulting provider notified?: Yes 11/16/17 18:14 Consult Physician Routine Consulting Provider: Jacquelyn Wise Consult Reason/Comments: pneumonia?? Do you want consulting provider notified?: Yes 11/17/17 13:57 Consult Physician Stat Consulting Provider: Sima Art Consult Reason/Comments: sepesis Do you want consulting provider notified?: Yes 11/21/17 08:49 Consult Physician Routine Consulting Provider: Jacquelyn Wise Consult Reason/Comments: reconsult-ICU management Do you want consulting provider notified?: Already Contacted 11/23/17 12:06 Consult Physician Routine Consulting Provider: Cathryn Dooley Consult Reason/Comments: Hepatic abscess Do you want consulting provider notified?: Yes Primary care physician: Jeannette Alnais Hospital Course: Patient was admitted secondary to septic sepsis to ICU, source of infection was initially unknown later found to have liver abscess patient has a 13X 9 centimeter abscess in the right lobe of the liver and with another smaller abscess. Surgical drain was placed. Patient was bacteremic with anaerobic bacteria. Patient was initially on vancomycin, Unasyn and metronidazole area did vancomycin was subsequently discontinued presently on Unasyn and metronidazole. Patient appears to have multiple other small abscesses in the right lobe as well as throughout the liver. Which doesn't seem to have improved. Biliary drain is draining bilious fluid and surgery evaluated the patient because of multiple small abscesses in the recommended tertiary level facility transfer and evaluation of a hepatobiliary surgeon. Patient had mildly elevated liver enzymes which have come down. Patient does not appear to have any cirrhosis. During the hospitalization course patient became hypoxic requiring oxygen and found to have bilateral pleural effusions may be related to IV fluid resuscitation on admission. Patient had an echo cardiogram which showed ejection fraction of 45%. Patient doesn't have known history of can start failure hopefully this disease depressed ejection fraction is temporary and secondary to sepsis. Patient remained on IV Lasix with slow improvement in his respiratory status presently saturating at 92% on 2 L of oxygen remains on IV Lasix with improvement of creatinine from 1.25-1.1 with IV Lasix patient remains to have leukocytosis is afebrile for last 4 days repeat blood cultures are negative. Cultures from the wound surgical drain are negative for bacteria. Pathology from the liver lesions is consistent with abscesses and no malignancy was seen. Patient is presently medically stable. Discussed with delimer at [facility] who accepted the patient and patient will be discharged to [facility] for further evaluation by a hepatobiliary surgeon. PHYSICAL EXAMINATION: GENERAL: The patient is alert and oriented x3, not in any acute distress. Well developed, well nourished. HEENT: Pupils are round and equally reacting to light. EOMI. No scleral icterus. No conjunctival pallor. Normocephalic, atraumatic. No pharyngeal erythema. No thyromegaly. CARDIOVASCULAR: S1 and S2 present. No murmurs, rubs, or gallops. PULMONARY: Chest is clear to auscultation, no wheezing or crackles. ABDOMEN: Soft, nontender, biliary drain in place which is draining at this time , mostly bilious fluid without any purulent discharge. MUSCULOSKELETAL: No joint swelling or deformity. EXTREMITIES: No cyanosis, clubbing, or pedal edema. NEUROLOGICAL: Gross neurological examination did not reveal any focal deficits. SKIN: No rashes. ssessment and Plan Plan: -Sepsis and bacteremia secondary to liver abscess: Status post drain placement surgical evaluation as mentioned above -Acute hypoxic respiratory failure: Secondary to possible CHF exacerbation chronic systolic dysfunction with acute exacerbation there is a right chronic diaphragmatic elevation which is also contributing to her shortness of breath -Elevated LFTs secondary to liver abscess, improved now -Benign prostatic hypertrophy -hypothyroidism -hyperlipidemia -Chronic low back pain with spinal stenosis Patient Condition at Discharge: Serious Plan - Discharge Summary Discharge Rx Participant: No New Discharge Prescriptions: New Ampicillin-Sulbactam [Unasyn] 3 gm IVPB Q6HR vial Heparin Sodium,Porcine [Heparin Sodium] 5,000 unit SQ Q12HR vial Insulin Aspart [NovoLOG (formulary)] 0 unit SQ ACHS vial Ipratropium-Albuterol Nebulize [Duoneb 0.5 mg-3 mg/3 ml Soln] 3 ml INHALATION RT-TID ampul.neb metroNIDAZOLE [Flagyl] 500 mg PO TID tab Pantoprazole [Protonix] 40 mg PO AC-BRKFST tablet. Continue Aspirin 81 mg PO HS Simvastatin [Zocor] 40 mg PO HS Finasteride [Proscar] 5 mg PO QAM Doxazosin [Cardura] 4 mg PO HS Levothyroxine Sodium [Synthroid] 25 mcg PO QAM Multivitamin [Men's Multi-Vitamin] 1 tab PO DAILY Calcium Carbonate/Vitamin D3 [Calcium 600-Vit D3 400 Tablet] 1 each PO DAILY traMADol HCL [Ultram] 100 mg PO Q6HR PRN PRN Reason: Pain Cholecalciferol [Vitamin D3] 5,000 unit PO DAILY Oxybutynin Chloride [Ditropan XL] 10 mg PO DAILY Discontinued Naproxen Sodium 550 mg PO Q12HR PRN PRN Reason: Pain Potassium Gluconate 595 mg PO DAILY No Action Krill Oil 1,000 mg PO DAILY Discharge Medication List Aspirin 81 mg PO HS 04/03/14 [History] Doxazosin [Cardura] 4 mg PO HS 04/03/14 [History] Finasteride [Proscar] 5 mg PO QAM 04/03/14 [History] Simvastatin [Zocor] 40 mg PO HS 04/03/14 [History] Levothyroxine Sodium [Synthroid] 25 mcg PO QAM 01/21/15 [History] Calcium Carbonate/Vitamin D3 [Calcium 600-Vit D3 400 Tablet] 1 each PO DAILY [History] Multivitamin [Men's Multi-Vitamin] 1 tab PO DAILY 01/25/15 [History] Krill Oil 1,000 mg PO DAILY 03/11/15 [History] Cholecalciferol [Vitamin D3] 5,000 unit PO DAILY 11/16/17 [History] Oxybutynin Chloride [Ditropan XL] 10 mg PO DAILY 11/16/17 [History] traMADol HCL [Ultram] 100 mg PO Q6HR PRN 11/16/17 [History] Ampicillin-Sulbactam [Unasyn] 3 gm IVPB Q6HR vial 11/24/17 [Rx] Heparin Sodium,Porcine [Heparin Sodium] 5,000 unit SQ Q12HR vial 11/24/17 [Rx] Insulin Aspart [NovoLOG (formulary)] 0 unit SQ ACHS vial 11/24/17 [Rx] Ipratropium-Albuterol Nebulize [Duoneb 0.5 mg-3 mg/3 ml Soln] 3 ml INHALATION RT -TID ampul.neb 11/24/17 [Rx] Pantoprazole [Protonix] 40 mg PO AC-BRKFST tablet. 11/24/17 [Rx] metroNIDAZOLE [Flagyl] 500 mg PO TID tab 11/24/17 [Rx] Follow up Appointment(s)/Referral(s): Jeannette Alanis MD [Primary Care Provider] - 1-2 days Discharge Disposition: OTHER INSTITUTION NOT DEFINED
== END 2017-11-24 14:58 | disposition short-term general hospital (02) | DRG 871 ==
LOC: EC 01:10 → 6SEL 06:40 → 6ICU 07:11 → 6SEL 11:21 → 5MS5E 11-17 22:36 → 6ICU 11-20 16:12 → 6SEL 11-21 18:58
PROVIDERS: ADMIT Hospitalist; ATTEND Hospitalist
PROC: 0F9130Z Drainage of Right Lobe Liver with Drainage Device, Percutaneous Approach (ICD-10-PCS; principal; 2017-11-19)
PROC: 0FB13ZX Excision of Right Lobe Liver, Percutaneous Approach, Diagnostic (ICD-10-PCS; 2017-11-19)
PROC: 5A09557 Assistance with Respiratory Ventilation, Greater than 96 Consecutive Hours, Continuous Positive Airway Pressure (ICD-10-PCS; 2017-11-19)
DX: A41.9 Sepsis, unspecified organism (principal); K75.0 Abscess of liver; J18.9 Pneumonia, unspecified organism; J96.01 Acute respiratory failure with hypoxia; I50.23 Acute on chronic systolic (congestive) heart failure; E87.1 Hypo-osmolality and hyponatremia; K51.90 Ulcerative colitis, unspecified, without complications; E87.3 Alkalosis; K22.2 Esophageal obstruction; K80.20 Calculus of gallbladder without cholecystitis without obstruction; K44.9 Diaphragmatic hernia without obstruction or gangrene; K29.60 Other gastritis without bleeding; K57.30 Diverticulosis of large intestine without perforation or abscess without bleeding; K21.9 Gastro-esophageal reflux disease without esophagitis; G89.29 Other chronic pain; M48.00 Spinal stenosis, site unspecified; E78.5 Hyperlipidemia, unspecified; G47.33 Obstructive sleep apnea (adult) (pediatric); E03.9 Hypothyroidism, unspecified; N40.0 Benign prostatic hyperplasia without lower urinary tract symptoms; L40.9 Psoriasis, unspecified; M17.0 Bilateral primary osteoarthritis of knee; Z79.82 Long term (current) use of aspirin; Z79.890 Hormone replacement therapy; Z79.899 Other long term (current) drug therapy; Z87.19 Personal history of other diseases of the digestive system; Z91.011 Allergy to milk products; Z91.018 Allergy to other foods; Z82.49 Family history of ischemic heart disease and other diseases of the circulatory system; Z80.3 Family history of malignant neoplasm of breast; Z82.0 Family history of epilepsy and other diseases of the nervous system; J20.9 Acute bronchitis, unspecified
CPT/HCPCS: 36415; 36600; 71045; 71046; 71275; 74160; 74176; 76705; 77012; 80048; 80053; 80074; 80202; 81001; 82105; 82248; 82378; 82805; 83036; 83605; 83735; 83880; 84484; 85025; 85027; 85610; 85730; 86301; 87040; 87070; 87075; 87086; 87205; 87502; 88173; 88305; 89050; 93005; 93306; 94640; 94760; 96361; 96365; 96366; 96367; 96375; 99291

== ENCOUNTER → 2017-12-13 | Outpatient (CLI) | payer MEDICARE ==
[2017-12-13 08:42] LABS: HCT 43.2 % (39.0-53.0); MCH 29.2 pg (25.0-35.0); MCHC 32.5 g/dL (31.0-37.0); MCV 89.8 fL (80.0-100.0); Mean Platelet Volume 7.2; Platelet Count 302 k/uL (150-450); RDW 15.4 % (11.5-15.5); WBC 9.1 k/uL (3.8-10.6)
[2017-12-13 08:59] LABS: Albumin 3.9 g/dL (3.5-5.0); Calcium 9.6 mg/dL (8.4-10.2); Potassium 4.7 mmol/L (3.5-5.1); Total Bilirubin 0.6 mg/dL (0.2-1.3); Total Protein 7.1 g/dL (6.3-8.2)
[2017-12-13 09:42] LABS: Eosinophils # (M) 0.18 k/uL (0-0.7); Lymphocytes # (M) 4.55 k/uL (1.0-4.8); Monocytes # (M) 0.73 k/uL (0-1.0); Neutrophils # (M) 3.64 k/uL (1.3-7.7); Neutrophils % (M) 40 %; Nucleated Red Blood Cells 0 /100 WBC (0-0); Total Cells Counted 100
== END | disposition home or self-care (01) ==
LOC: LABWHC1 07:39
PROVIDERS: ATTEND Family Medicine
DX: K75.0 Abscess of liver (principal)
CPT/HCPCS: 36415; 80053; 85025

== ENCOUNTER → 2018-01-21 | Outpatient (CLI) | payer MEDICARE ==
[2018-01-21 09:10] LABS: Albumin 4.2 g/dL (3.5-5.0)
== END | disposition home or self-care (01) ==
LOC: LABWHC1 07:11
PROVIDERS: ATTEND Urology
DX: N52.01 Erectile dysfunction due to arterial insufficiency (principal); I10 Essential (primary) hypertension
CPT/HCPCS: 36415; 82040; 82947; 83001; 83002; 84146; 84270; 84402; 84403; 84436; 84443; 84479

== ENCOUNTER → 2018-02-01 | Outpatient (CLI) | payer MEDICARE ==
--- NOTE | 2018-02-01 13:59 | US ---
EXAMINATION TYPE: US abdomen complete DATE OF EXAM: 02/01/2018 COMPARISON: CT 11/22/2017 CLINICAL HISTORY: K75.0 Abscess of Liver. Drainage tube for liver abscess removed last November. EXAM MEASUREMENTS: Liver Length: 20.1 cm Gallbladder Wall: 0.2 cm CBD: 0.3 cm Spleen: 10.3 cm Right Kidney: 11.3 x 5.9 x 5.6 cm Left Kidney: 12.0 x 5.9 x 5.8 cm Pancreas: Obscured by bowel gas Liver: Hepatomegaly. Partially obscured by bowel gas. Heterogeneous texture near area of previous ab scess. No fluid collection seen. Gallbladder: Multiple echogenic foci seen in neck of GB Evidence for sonographic Saavedra's sign: No CBD: wnl Spleen: Partially obscured by overlying bowel gas Right Kidney: No hydronephrosis or masses seen Left Kidney: No hydronephrosis or masses seen Upper IVC: wnl Abd Aorta: wnl The intrahepatic portion of the IVC and proximal abdominal aorta are within normal limits. Common bi le duct is unremarkable. The visualized portions of the pancreas are homogenous. The spleen is unre markable. Kidneys are symmetric and free of hydronephrosis. No renal lesions are seen. IMPRESSION: 1. The liver and heterogenous in echotexture within the region of the previously seen hepatic abscess however no focal fluid collection is identified sonographically. 2. Cholelithiasis without current sonographic evidence of acute cholecystitis.
== END | disposition home or self-care (01) ==
LOC: RADUSWWP 07:34
PROVIDERS: ATTEND Internal Medicine Infectious Disease
DX: K80.20 Calculus of gallbladder without cholecystitis without obstruction (principal)
CPT/HCPCS: 76700